=== PATIENT | male | born 1935 | race Caucasian/White ===

== ENCOUNTER 2018-04-24 09:35 | Inpatient (IN) | payer MEDICARE ==
[2018-04-24] MEDS ORDERED: SODIUM CHLORIDE 0.9% 1,000 ML IV STA (10:10)
--- NOTE | 2018-04-24 10:16 | ED ---
General Adult HPI - General Chief complaint: Weakness Stated complaint: WEAKNESS Time Seen by Provider: 04/24/18 09:35 Source: patient, RN notes reviewed Mode of arrival: ambulatory Limitations: no limitations - History of Present Illness Initial comments: This is an 83-year-old male who presents to the emergency department by ambulance with the complaint of generalized weakness. Patient states she woke up at L5-S1 felt weak laid back down but the weakness did not go away. Patient states that a number of occasions he felt as though he might pass out. Patient felt as though he was too weak to get up and walk. Patient denies any focal weakness. Patient denies focal numbness. Patient denies headache patient denies any chest pain or difficulty breathing or shortness of breath per patient denies any palpitations. Patient denies any abdominal pain patient denies nausea vomiting diarrhea. Patient denies any recent injury or trauma. Patient denies any recent sickness. Patient denies any cough. Patient denies any recent surgeries. Patient states right now while lying in bed he feels pretty good. Patient states many years ago he had an issue with fainting multiple times but he is not had that many years. - Related Data Home Medications Medication Instructions Recorded Confirmed Cholecalciferol [Vitamin D3] 1,000 unit PO DAILY 04/24/18 04/24/18 Diltiazem Cd [Cardizem CD] 240 mg PO DAILY 04/24/18 04/24/18 Enalapril [Vasotec] 5 mg PO DAILY 04/24/18 04/24/18 Multivitamins, Thera [Multivitamin 1 tab PO DAILY 04/24/18 04/24/18 (formulary)] Triamterene-Hctz 37.5-25Mg 1 cap PO DAILY 04/24/18 04/24/18 [Dyazide 37.5-25 Capsule] Allergies Allergy/AdvReac Type Severity Reaction Status Date / Time Penicillins Allergy Rash/Hives Verified 04/24/18 12:01 Sulfa (Sulfonamide Allergy Rash/Hives Verified 04/24/18 12:01 Antibiotics) Review of Systems ROS Statement: Those systems with pertinent positive or pertinent negative responses have been documented in the HPI. ROS Other: All systems not noted in ROS Statement are negative. Past Medical History Past Medical History: Hypertension Additional Past Medical History / Comment(s): murmur History of Any Multi-Drug Resistant Organisms: None Reported Past Surgical History: No Surgical Hx Reported Past Psychological History: Depression Smoking Status: Never smoker Past Alcohol Use History: None Reported Past Drug Use History: None Reported General Exam - General Exam Comments Initial Comments: GENERAL: Patient is well-developed and well-nourished. Patient is nontoxic and well- hydrated and is in no acute distress. ENT: Neck is soft and supple. No significant lymphadenopathy is noted. Oropharynx is clear. Moist mucous membranes. Neck has full range of motion without eliciting any pain. EYES: The sclera were anicteric and conjunctiva were pink and moist. Extraocular movements were intact and pupils were equal round and reactive to light. Eyelids were unremarkable. PULMONARY: Unlabored respirations. Good breath sounds bilaterally. No audible rales rhonchi or wheezing was noted. CARDIOVASCULAR: There is a regular rate and rhythm without any murmurs gallops or rubs. ABDOMEN: Soft and nontender with normal bowel sounds. No palpable organomegaly was noted. There is no palpable pulsatile mass. SKIN: Skin is clear with no lesions or rashes and otherwise unremarkable. NEUROLOGIC: Patient is alert and oriented x3. Cranial nerves II through XII are grossly intact. Motor and sensory are also intact. Normal speech, volume and content. Symmetrical smile. MUSCULOSKELETAL: Normal extremities with adequate strength and full range of motion. No lower extremity swelling or edema. No calf tenderness. LYMPHATICS: No significant lymphadenopathy is noted PSYCHIATRIC: Normal psychiatric evaluation. Limitations: no limitations Course Vital Signs 04/24/18 04/24/18 04/24/18 09:37 10:08 13:16 Temperature 97.9 F Pulse Rate 87 94 Respiratory 18 16 18 Rate Blood Pressure 150/100 133/77 O2 Sat by Pulse 98 95 Oximetry Medical Decision Making - Medical Decision Making EKG shows sinus rhythm with occasional PVC at 91 bpm CA interval 192 QRS is 88 QT interval 380 QTC is 467. Patient's EKG shows no ST segment elevation or depression or T wave abnormalities are noted. Chest x-ray showed no acute abnormality. Computed tomography scan of the lungs showed no obvious pulmonary embolism. Patient was started on heparin secondary to the elevated troponin. I spoke with Dr. Vera he agreed to admit the patient admitted the patient wrote admitting orders I consult cardiology I continued heparin and aspirin and Nitropaste on the floor. After I was writing admitting orders patient's heart rate jumped to 170s look like his SVT EKG showed supraventricular tachycardia at 169 bpm QRS 104 QT interval is 278 QTC is 466. I gave the patient adenosine 6 mg and then 12 mg and it converted the patient back into a sinus rhythm. After the adenosine EKG showed a normal sinus rhythm at 80 bpm there was an occasional PVC and PAC CA interval is 188 QRSs 84 QT interval 360 QTC is 445. - Lab Data Result diagrams: 04/24/18 10:00 04/24/18 10:00 Lab Results 04/24/18 04/24/18 04/24/18 Range/Units 10:00 10:00 10:00 WBC 7.1 (3.8-10.6) k/uL RBC 4.80 (4.30-5.90) m/uL Hgb 15.1 (13.0-17.5) gm/dL Hct 45.1 (39.0-53.0) % MCV 93.9 (80.0-100.0) fL MCH 31.4 (25.0-35.0) pg MCHC 33.5 (31.0-37.0) g/dL RDW 13.9 (11.5-15.5) % Plt Count 237 (150-450) k/uL Neutrophils % 81 % Lymphocytes % 11 % Monocytes % 5 % Eosinophils % 1 % Basophils % 0 % Neutrophils # 5.8 (1.3-7.7) k/uL Lymphocytes # 0.8 L (1.0-4.8) k/uL Monocytes # 0.4 (0-1.0) k/uL Eosinophils # 0.1 (0-0.7) k/uL Basophils # 0.0 (0-0.2) k/uL PT 10.2 (9.0-12.0) sec INR 0.9 (<1.2) APTT 24.5 (22.0-30.0) sec D-Dimer 0.68 H (<0.60) mg/L FEU Sodium 137 (137-145) mmol/L Potassium 4.2 (3.5-5.1) mmol/L Chloride 105 (98-107) mmol/L Carbon Dioxide 22 (22-30) mmol/L Anion Gap 10 mmol/L BUN 22 H (9-20) mg/dL Creatinine 0.96 (0.66-1.25) mg/dL Est GFR (CKD-EPI)AfAm 85 (>60 ml/min/1.73 sqM) Est GFR (CKD-EPI)NonAf 74 (>60 ml/min/1.73 sqM) Glucose 103 H (74-99) mg/dL Plasma Lactic Acid Ren (0.7-2.0) mmol/L Calcium 10.0 (8.4-10.2) mg/dL Magnesium 1.7 (1.6-2.3) mg/dL Total Bilirubin 0.8 (0.2-1.3) mg/dL AST 26 (17-59) U/L ALT 36 (21-72) U/L Alkaline Phosphatase 75 (38-126) U/L Troponin I (0.000-0.034) ng/mL Total Protein 7.0 (6.3-8.2) g/dL Albumin 4.1 (3.5-5.0) g/dL Urine Color Urine Appearance (Clear) Urine pH (5.0-8.0) Ur Specific [place] (1.001-1.035) Urine Protein (Negative) Urine Glucose (UA) (Negative) Urine Ketones (Negative) Urine Blood (Negative) Urine Nitrite (Negative) Urine Bilirubin (Negative) Urine Urobilinogen (<2.0) mg/dL Ur Leukocyte Esterase (Negative) 04/24/18 04/24/18 04/24/18 Range/Units 10:00 10:00 11:17 WBC (3.8-10.6) k/uL RBC (4.30-5.90) m/uL Hgb (13.0-17.5) gm/dL Hct (39.0-53.0) % MCV (80.0-100.0) fL MCH (25.0-35.0) pg MCHC (31.0-37.0) g/dL RDW (11.5-15.5) % Plt Count (150-450) k/uL Neutrophils % % Lymphocytes % % Monocytes % % Eosinophils % % Basophils % % Neutrophils # (1.3-7.7) k/uL Lymphocytes # (1.0-4.8) k/uL Monocytes # (0-1.0) k/uL Eosinophils # (0-0.7) k/uL Basophils # (0-0.2) k/uL PT (9.0-12.0) sec INR (<1.2) APTT (22.0-30.0) sec D-Dimer (<0.60) mg/L FEU Sodium (137-145) mmol/L Potassium (3.5-5.1) mmol/L Chloride (98-107) mmol/L Carbon Dioxide (22-30) mmol/L Anion Gap mmol/L BUN (9-20) mg/dL Creatinine (0.66-1.25) mg/dL Est GFR (CKD-EPI)AfAm (>60 ml/min/1.73 sqM) Est GFR (CKD-EPI)NonAf (>60 ml/min/1.73 sqM) Glucose (74-99) mg/dL Plasma Lactic Acid Ren 2.2 H* (0.7-2.0) mmol/L Calcium (8.4-10.2) mg/dL Magnesium (1.6-2.3) mg/dL Total Bilirubin (0.2-1.3) mg/dL AST (17-59) U/L ALT (21-72) U/L Alkaline Phosphatase (38-126) U/L Troponin I 0.122 H* (0.000-0.034) ng/mL Total Protein (6.3-8.2) g/dL Albumin (3.5-5.0) g/dL Urine Color Light Yellow Urine Appearance Clear (Clear) Urine pH 7.5 (5.0-8.0) Ur Specific [place] 1.007 (1.001-1.035) Urine Protein Negative (Negative) Urine Glucose (UA) Negative (Negative) Urine Ketones Negative (Negative) Urine Blood Negative (Negative) Urine Nitrite Negative (Negative) Urine Bilirubin Negative (Negative) Urine Urobilinogen <2.0 (<2.0) mg/dL Ur Leukocyte Esterase Negative (Negative) Critical Care Time Critical Care Time: Yes Total Critical Care Time: 55 Disposition Clinical Impression: Generalized weakness, SVT (supraventricular tachycardia), Non-STEMI (non-ST elevated myocardial infarction) Disposition: ADMITTED IP TO THIS HOSP Referrals: Leanna Mancia DO [Primary Care Provider] - 1-2 days Time of Disposition: 12:58
[2018-04-24 10:35] LABS: Basophils % (A) 0 %; Eosinophils # (A) 0.1 k/uL (0-0.7); Eosinophils % (A) 1 %; HCT 45.1 % (39.0-53.0); HGB 15.1 gm/dL (13.0-17.5); Lymphocytes # (A) 0.8 k/uL (1.0-4.8); Lymphocytes % (A) 11 %; MCH 31.4 pg (25.0-35.0); MCHC 33.5 g/dL (31.0-37.0); MCV 93.9 fL (80.0-100.0); Monocytes # (A) 0.4 k/uL (0-1.0); Monocytes % (A) 5 %; Neutrophils # (A) 5.8 k/uL (1.3-7.7); Neutrophils % (A) 81 %; Platelet Count 237 k/uL (150-450); RDW 13.9 % (11.5-15.5); WBC 7.1 k/uL (3.8-10.6)
[2018-04-24 10:46] LABS: Albumin 4.1 g/dL (3.5-5.0); Magnesium 1.7 mg/dL (1.6-2.3); Potassium 4.2 mmol/L (3.5-5.1); Total Bilirubin 0.8 mg/dL (0.2-1.3)
[2018-04-24 11:09] LABS: INR 0.9 (<1.2); Partial Thromboplastin Time 24.5 sec (22.0-30.0); Prothrombin Time 10.2 sec (9.0-12.0)
[2018-04-24] MEDS ORDERED: HEPARIN SODIUM,PORCINE 5,000 UNIT/ML 1 ML VIAL IV ONE ×2 (11:09→12:53)
[2018-04-24 11:15] LABS: D-Dimer 0.68 mg/L FEU (<0.60)
[2018-04-24] MEDS ORDERED: HEPARIN SOD,PORK IN 0.45% NACL 25,000 UNIT in 0.45% NACL 1 250ML.BAG IV SCH (11:15)
[2018-04-24 11:51] LABS: Appearance,Urine Clear (Clear); Bilirubin,Urine Negative (Negative); Blood,Urine Negative (Negative); Color,Urine Light Yellow; Glucose,Urine (UA) Negative (Negative); Ketones,Urine Negative (Negative); Leukocyte Esterase,Urine Negative (Negative); Nitrite,Urine Negative (Negative); PH, Urine 7.5 (5.0-8.0); Protein,Urine Negative (Negative); Specific Gravity,Urine 1.007 (1.001-1.035); Urobilinogen,Urine <2.0 mg/dL (<2.0)
--- NOTE | 2018-04-24 12:38 | XR ---
EXAMINATION TYPE: XR chest 2V DATE OF EXAM: 04/24/2018 COMPARISON: None HISTORY: 83-year-old male with weakness and dizziness TECHNIQUE: PA and lateral views FINDINGS: Heart normal size. Elongation/ectasia of the thoracic aorta. Mild interstitial prominence. No consoli dation or pleural effusion. IMPRESSION: Mild elongated/ectatic thoracic aorta. Chronic appearing changes. No definite acute process.
--- NOTE | 2018-04-24 12:44 | CT ---
EXAMINATION TYPE: CT chest angio for PE DATE OF EXAM: 04/24/2018 COMPARISON: Radiograph same day HISTORY: 83-year-old male shortness of breath, pain, elevated d dimer TECHNIQUE: Contiguous axial scanning of the chest performed with IV Contrast, patient injected with 1 00 mL of Isovue 370. Coronal/sagittal MIP reconstructions performed. CT DLP: 364.1 mGycm Automated exposure control for dose reduction was used. FINDINGS: Heart normal size with trace anterior basilar pericardial fluid. Coronary vessel calcifications are p resent. Mild aortic valvular calcifications. Mild atherosclerotic arch calcifications. Upper descending thoracic aorta is borderline aneurysmal 3. 2 cm. Scattered prominent but nonenlarged mediastinal lymph nodes measuring 1.2 cm subcarinal and 8 mm righ t paratracheal. Satisfactory opacification of the pulmonary to systemic without evidence for pulmonary embolus. Some partially calcified right hilar lymph nodes and a calcified granuloma in the right midlung. Mild diffuse bronchial wall thickening. No consolidation or pleural effusion. Minimal scattered emphy sematous change. Visualized upper abdomen showed possible cystic lesion of the pancreatic body measuring 1.2 cm. Possi ble cystic lesion pancreatic tail measuring 1.1 cm. Dedicated nonemergent follow-up pancreas protocol MRI can further evaluate. Bones: Endplate spondylosis mid to lower thoracic spine. IMPRESSION: 1. MILD DIFFUSE BRONCHIAL WALL THICKENING SUGGESTS BRONCHITIS OR ASTHMA. MINIMAL EMPHYSEMATOUS CHANGE S PRESENT. 2. Prior granulomatous disease. Numerous scattered borderline and nonenlarged mediastinal and hilar l ymph nodes likely reactive/post inflammatory. 3. No evidence for pulmonary embolus. 4. Possible cystic lesions of the pancreas measuring up to 1.2 cm. Nonemergent follow-up pancreas pro tocol MRI recommended to further evaluate.
[2018-04-24] MEDS ORDERED: ADENOSINE 3 MG/ML 2 ML VIAL IVP STA ×2 (13:03→13:24)
[2018-04-24] MEDS ORDERED: NITROGLYCERIN SL TABS 0.4 MG TAB SUBLINGUAL PRN (13:12)
[2018-04-24] MEDS: HEPARIN SOD,PORK IN 0.45% NACL 25,000 UNIT in 0.45% NACL 1 250ML.BAG IV SCH (13:13)
--- NOTE | 2018-04-24 15:40 | P.HPIM ---
History of Present Illness Chief Complaint: Weakness This is a very pleasant 81-year-old gentleman with a past medical history significant for hypertension, some kind of arrhythmia was patient is not sure as the patient is on Cardizem CD, comes in with weakness. Patient says that he would have weakness on and off for a while now and he was told by his doctor that if he has weakness to take some rest or cough for the weakness to go away. He said that he was told that he has flutter. He is not sure if was officially diagnosed with A. fib or any arrhythmias. This morning he started having weakness which is not going away even after sitting and taking rest so he came into the ER for further evaluation and management. Patient otherwise does not complain of any chest pain racing heart, no cough no shortness of breath, no abdominal pain, nausea and vomiting, or diarrhea constipation, no tingling numbness of his extremities, and additional rest. He said that he was also feeling dizzy little bit this morning. Next ER course-temperature was 97.9 pulse 80 respiration 18 blood pressure 139/77 7097% on room air. Labwork showed WBC 7.1 hemoglobin 15.1 platelets 237 d- dimer 0.68 sodium 137 potassium 4.2 B1 22 creatinine 0.96 lactic acid 2.2 troponin 0.12 . While in the ER patient heart rate jumped up to 160s and he was in SVT. He was given adenosine after which the he converted to normal sinus rhythm. I was told that his underlying rhythm was still sinus. Patient was started on heparin drip and admitted to the hospitalist service for further evaluation and management. Review of Systems All systems: negative Past Medical History Past Medical History: Hypertension Additional Past Medical History / Comment(s): murmur History of Any Multi-Drug Resistant Organisms: None Reported Past Surgical History: No Surgical Hx Reported Past Psychological History: Depression Smoking Status: Never smoker Past Alcohol Use History: None Reported Past Drug Use History: None Reported Medications and Allergies Home Medications Medication Instructions Recorded Confirmed Type Cholecalciferol [Vitamin D3] 1,000 unit PO DAILY 04/24/18 04/24/18 History Diltiazem Cd [Cardizem CD] 240 mg PO DAILY 04/24/18 04/24/18 History Enalapril [Vasotec] 5 mg PO DAILY 04/24/18 04/24/18 History Multivitamins, Thera [Multivitamin 1 tab PO DAILY 04/24/18 04/24/18 History (formulary)] Triamterene-Hctz 37.5-25Mg 1 cap PO DAILY 04/24/18 04/24/18 History [Dyazide 37.5-25 Capsule] Allergies Allergy/AdvReac Type Severity Reaction Status Date / Time Penicillins Allergy Rash/Hives Verified 04/24/18 12:01 Sulfa (Sulfonamide Allergy Rash/Hives Verified 04/24/18 12:01 Antibiotics) Physical Exam Vitals: Vital Signs Temp Pulse Resp BP Pulse Ox 04/24/18 13:53 73 18 139/77 97 04/24/18 13:16 94 18 133/77 95 04/24/18 10:08 16 04/24/18 09:37 97.9 F 87 18 150/100 98 Intake and Output 04/24/18 04/24/18 04/24/18 06:59 14:59 22:59 Other: Weight 68.765 kg On exam, alert and oriented x3. HEENT: Conjunctivae normal. eyes normal. NECK: No JVD. No thyroid enlargement. No LNs CARDIOVASCULAR: S1, S2 RESPIRATION: Breath sounds diminished in the bases. No rhonchi or crackles. No bronchial breathing. ABDOMEN: Soft, nontender . No guarding. no masses palpable. No ascites, No hepatosplenomegaly.Bowel sounds heard. LEGS: No edema. no swelling NERVOUS SYSTEM: Cranial N 2-12 grossly normal. Moves all 4 limbs. No focal deficits. No sensory deficit. No signs of cerebellar dysfucntion. Skin: no ulcer no rash Joints: No active swelling. No inflammation. Lymphatic system. No LN neck axilla or groin. Results CBC & Chem 7: 04/24/18 10:00 04/24/18 10:00 Labs: Abnormal Lab Results - Last 24 Hours (Table) 04/24/18 04/24/18 04/24/18 Range/Units 10:00 10:00 10:00 Lymphocytes # 0.8 L (1.0-4.8) k/uL D-Dimer 0.68 H (<0.60) mg/L FEU BUN 22 H (9-20) mg/dL Glucose 103 H (74-99) mg/dL Plasma Lactic Acid Ren (0.7-2.0) mmol/L Troponin I (0.000-0.034) ng/mL 04/24/18 04/24/18 Range/Units 10:00 10:00 Lymphocytes # (1.0-4.8) k/uL D-Dimer (<0.60) mg/L FEU BUN (9-20) mg/dL Glucose (74-99) mg/dL Plasma Lactic Acid Ren 2.2 H* (0.7-2.0) mmol/L Troponin I 0.122 H* (0.000-0.034) ng/mL Assessment and Plan Assessment: - Weakness and dizziness probably due to episode of SVT - Rule out non-STEMI - Hypertension - Mildly elevated lactic acid Plan - We'll admit the patient to [facility] with telemetry - The patient is on heparin drip will continue that - Cardiology is consulted - We'll monitor troponin levels - We'll resume the patient's home medications - We'll start him on gentle hydration - DVT and GI prophylaxis - We will order for lab work in the morning - Expected length of stay more than 2 midnight - Patient is full code Time with Patient: Greater than 30
[2018-04-24 16:21] VITALS: BMI 23.7
[2018-04-24] MEDS: SODIUM CHLORIDE 0.9% 1,000 ML IV SCH (17:11)
[2018-04-24] MEDS: NITROGLYCERIN OINT 1 INCH/GM PACKET TOPICAL SCH (17:15)
[2018-04-25] MEDS: NITROGLYCERIN OINT 1 INCH/GM PACKET TOPICAL SCH ×2 (00:23→06:02)
[2018-04-25 04:25] LABS: HCT 37.5 % (39.0-53.0); HGB 12.7 gm/dL (13.0-17.5); MCH 32.7 pg (25.0-35.0); MCHC 33.9 g/dL (31.0-37.0); MCV 96.3 fL (80.0-100.0); Mean Platelet Volume 6.3; Platelet Count 209 k/uL (150-450); RBC 3.89 m/uL (4.30-5.90); WBC 5.2 k/uL (3.8-10.6)
[2018-04-25 04:40] LABS: Calcium 9.1 mg/dL (8.4-10.2); Potassium 4.1 mmol/L (3.5-5.1)
[2018-04-25] MEDS: SODIUM CHLORIDE 0.9% 1,000 ML IV SCH ×2 (06:48→17:53)
[2018-04-25] MEDS: LISINOPRIL 10 MG TAB PO SCH (08:53)
[2018-04-25] MEDS: DILTIAZEM CD 240 MG CAP.ER.24H PO SCH (08:53)
[2018-04-25] MEDS: TRIAMTERENE-HCTZ 37.5-25MG 1 EACH CAP PO SCH (08:53)
[2018-04-25] MEDS ORDERED: ASPIRIN 325 MG TAB PO SCH (09:00)
--- NOTE | 2018-04-25 09:20 | P.CRDCN ---
History of Present Illness Consult date: 04/25/18 Requesting physician: Adeel Love Reason for Consult (text): SVT Chief complaint: Dizziness History of present illness: This is a pleasant 83-year-old gentleman with history of hypertension, hyperlipidemia, prior arrhythmia, who presented to the hospital with symptoms of dizziness and near syncope. According to the patient, 2-1/2 years ago he had similar symptoms, his had recently at that time. He went to [facility], had a rapid heart rhythm at that time. 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 He did see Dr. Sanders, who did stress testing and echo, patient was advised that if he felt the symptoms again that he needed to take a deep breath and cough. He did have a few subsequent episodes since that time that resolved with taking a deep breath and coughing. On of this past week he had similar symptoms, attempted to do this and the symptoms resolved. Yesterday morning he again develop symptoms of dizziness and near syncope, attempted to take a deep breath and cough however the symptoms persisted, he again tried the same thing with no results. For this reason he came to the emergency room at [facility] for further evaluation and treatment. His EKG performed on arrival here showed a supraventricular tachycardia, patient was given adenosine 6 mg and then 12 mg and subsequently converted to normal sinus rhythm. He remains in a normal sinus rhythm this morning. Chest x-ray shows mild elongated thoracic aorta, chronic appearing changes with no definite acute process noted. CTA of the chest was also performed which revealed mild diffuse bronchial wall thickening suggestive of bronchitis or asthma. Prior granulomatous disease with numerous scattered borderline and nonenlarged mediastinal and hilar lymph nodes. No evidence of PE. Possible cystic lesions of the pancreas measuring up to 1.2 cm. Blood pressure on arrival here 150/100, 98% on room air. Blood pressure this morning 105/60 with a heart rate in the 70s, 99% on room air. White blood cell count 7.1 on admission, hemoglobin 15.1 on admission, white blood cell count this morning 5.2 with a hemoglobin of 12.7. D-dimer 0.6. Sodium 138, potassium 4.1, BUN 27 and creatinine 0.9. Troponin 0.12, 0.64, 0.80. At the time of my examination this morning, patient feels well, he denies any dizziness or lightheadedness, no palpitations. Past Medical History Past Medical History: Hypertension, Supraventricular Tachycardia (SVT) Additional Past Medical History / Comment(s): murmur History of Any Multi-Drug Resistant Organisms: None Reported Past Surgical History: No Surgical Hx Reported Additional Past Surgical History / Comment(s): growth in bladder removed 2007 Past Anesthesia/Blood Transfusion Reactions: No Reported Reaction Smoking Status: Never smoker - Past Family History Father Family Medical History: Myocardial Infarction ([place]) Medications and Allergies Home Medications Medication Instructions Recorded Confirmed Type Cholecalciferol [Vitamin D3] 1,000 unit PO DAILY 04/24/18 04/24/18 History Diltiazem Cd [Cardizem CD] 240 mg PO DAILY 04/24/18 04/24/18 History Enalapril [Vasotec] 5 mg PO DAILY 04/24/18 04/24/18 History Multivitamins, Thera [Multivitamin 1 tab PO DAILY 04/24/18 04/24/18 History (formulary)] Triamterene-Hctz 37.5-25Mg 1 cap PO DAILY 04/24/18 04/24/18 History [Dyazide 37.5-25 Capsule] Allergies Allergy/AdvReac Type Severity Reaction Status Date / Time Penicillins Allergy Rash/Hives Verified 04/24/18 12:01 Sulfa (Sulfonamide Allergy Rash/Hives Verified 04/24/18 12:01 Antibiotics) Physical Exam Vitals: Vital Signs Temp Pulse Pulse Resp BP BP Pulse Ox 04/25/18 08:00 98.1 F 70 18 183/85 97 04/25/18 04:20 98.1 F 71 15 105/64 99 04/25/18 00:06 66 15 102/59 98 04/24/18 20:24 74 16 128/81 97 04/24/18 16:32 98.1 F 87 20 129/79 99 04/24/18 15:53 97.9 F 73 18 139/77 97 04/24/18 13:53 73 18 139/77 97 04/24/18 13:16 94 18 133/77 95 04/24/18 10:08 16 04/24/18 09:37 97.9 F 87 18 150/100 98 Intake and Output 04/24/18 04/25/18 04/25/18 22:59 06:59 14:59 Intake Total 564.763 687.979 0 Output Total 100 Balance 464.763 687.979 0 Intake: Amount of Fluid Infused ( 500 ml) Intake, IV Titration 64.763 687.979 Amount Heparin Sod,Pork in 0.45% 64.763 87.979 NaCl 25,000 unit In 0.45 % NaCl 1 250ml.bag @ 12 UNITS/KG/HR 8.25 mls/hr IV .Q24H [facility] Rx#: [id number] Sodium Chloride 0.9% 1, 600 000 ml @ 75 mls/hr IV . [id number] [facility] Rx#:[id number] Oral 0 Output: Urine 100 Other: Voiding Method Toilet Toilet Toilet # Voids 2 Weight 73.8 kg PHYSICAL EXAMINATION: GENERAL: 83-year-old gentleman in no acute distress at the time of my examination HEENT: Head is atraumatic, normocephalic. Pupils equal, round. Sclera ani cteric. Conjunctiva are clear. Mucous membranes of the mouth are moist. Neck is supple. There is no elevated jugular venous pressure. No carotid bruit is heard. HEART EXAMINATION: Heart S1, S2 normal. No murmur or gallop heard. CHEST EXAMINATION: Lungs are clear to auscultation and precussion. No chest wall tenderness is noted on palpation or with deep breathing. ABDOMEN: Soft, nontender. Bowel sounds are heard. No organomegaly noted. EXTREMITIES: 2+ peripheral pulses with no evidence of peripheral edema and no calf tenderness noted. NEUROLOGIC patient is awake, alert and oriented 3 . . Results 04/25/18 04:09 04/25/18 04:09 Cardiac Enzymes 04/24/18 04/24/18 04/24/18 Range/Units 10:00 10:00 15:33 AST 26 (17-59) U/L Troponin I 0.122 H* 0.649 H* (0.000-0.034) ng/mL 04/24/18 Range/Units 21:50 AST (17-59) U/L Troponin I 0.809 H* (0.000-0.034) ng/mL Coagulation 04/24/18 04/24/18 04/25/18 Range/Units 10:00 20:10 04:09 PT 10.2 (9.0-12.0) sec APTT 24.5 30.6 H 36.3 H (22.0-30.0) sec Lipids 04/25/18 Range/Units 04:09 Triglycerides 106 (<150) mg/dL Cholesterol 126 (<200) mg/dL HDL Cholesterol 38 L (40-60) mg/dL CBC 04/24/18 04/25/18 Range/Units 10:00 04:09 WBC 7.1 5.2 (3.8-10.6) k/uL RBC 4.80 3.89 L (4.30-5.90) m/uL Hgb 15.1 12.7 L (13.0-17.5) gm/dL Hct 45.1 37.5 L (39.0-53.0) % Plt Count 237 209 (150-450) k/uL Comprehensive Metabolic Panel 04/24/18 04/25/18 Range/Units 10:00 04:09 Sodium 137 138 (137-145) mmol/L Potassium 4.2 4.1 (3.5-5.1) mmol/L Chloride 105 109 H (98-107) mmol/L Carbon Dioxide 22 24 (22-30) mmol/L BUN 22 H 27 H (9-20) mg/dL Creatinine 0.96 0.99 (0.66-1.25) mg/dL Glucose 103 H 98 (74-99) mg/dL Calcium 10.0 9.1 (8.4-10.2) mg/dL AST 26 (17-59) U/L ALT 36 (21-72) U/L Alkaline Phosphatase 75 (38-126) U/L Total Protein 7.0 (6.3-8.2) g/dL Albumin 4.1 (3.5-5.0) g/dL Current Medications Generic Name Dose Route Start Last Admin Trade Name Freq PRN Reason Stop Dose Admin Aspirin 81 mg 04/25/18 09:00 Aspirin PO DAILY [facility] Diltiazem HCl 240 mg 04/25/18 09:00 04/25/18 08:53 Cardizem Cd PO 240 mg DAILY [facility]ARAT Administration Heparin Sodium/Sodium Chloride 250 mls @ 8.25 mls/hr 04/24/18 13:00 04/25/18 05:36 25,000 unit/ Sodium Chloride IV 18 units/kg/hr .Q24H [facility] 12.37 mls/hr Titration Protocol 12 UNITS/KG/HR Sodium Chloride 1,000 mls @ 75 mls/hr 04/24/18 15:45 04/25/18 06:48 Saline 0.9% IV 75 mls/hr .[id number] [facility]AT Administration Lisinopril 10 mg 04/25/18 09:00 04/25/18 08:53 Zestril PO 10 mg DAILY BHARAT Administration Nitroglycerin 1 inch 04/24/18 18:00 04/25/18 06:02 Nitro-Bid Oint TOPICAL Not Given Q6HR [facility] Nitroglycerin 0.4 mg 04/24/18 13:12 Nitrostat SUBLINGUAL Q5M PRN Chest Pain Triamterene/HCTZ 1 each 04/25/18 09:00 04/25/18 08:53 Dyazide PO 1 each DAILY [facility]ARAT Administration Intake and Output 04/24/18 04/25/18 04/25/18 22:59 06:59 14:59 Intake Total 564.763 687.979 0 Output Total 100 Balance 464.763 687.979 0 Intake: Amount of Fluid Infused ( 500 ml) Intake, IV Titration 64.763 687.979 Amount Heparin Sod,Pork in 0.45% 64.763 87.979 NaCl 25,000 unit In 0.45 % NaCl 1 250ml.bag @ 12 UNITS/KG/HR 8.25 mls/hr IV .Q24H [facility] Rx#: [id number] Sodium Chloride 0.9% 1, 600 000 ml @ 75 mls/hr IV . [id number] [facility] Rx#:[id number] Oral 0 Output: Urine 100 Other: Voiding Method Toilet Toilet Toilet # Voids 2 Weight 73.8 kg 04/25/18 04:09 04/25/18 04:09 EKG Interpretations (text) EKG on admission here showed a supraventricular tachycardia, subsequent EKG shows a normal sinus rhythm. Assessment and Plan Plan: Assessment and plan #1 symptoms of dizziness and near syncope with evidence is supraventricular tachycardia, 2 doses of adenosine given patient is currently in normal sinus rhythm. #2 patient has history of arrhythmia, exact details unavailable #3 hypertension #4 hyperlipidemia #5 abnormality in troponin, likely secondary to supraventricular tachycardia Plan We will obtain an echocardiogram with Doppler study. We will obtain records of patient's prior episode of arrhythmia 2-1/2 years ago for [facility]. We will also obtain records from Dr. Melara office on prior testing done there. Obtain TSH level. Decrease aspirin to 81 mg daily, continue Cardizem. Disco ntinue Nitropaste. Decrease lisinopril to 5 mg daily. It has been explained to the patient that he may be a candidate for SVT ablation. Further recommendations to follow. DNP note has been reviewed, I agree with a documented findings and plan of care. Patient was seen and examined.
--- NOTE | 2018-04-25 12:46 | P.PN ---
Subjective Patient says that he's doing better today He has no more episode of weakness and fluttering No chest pain or racing heart, no cough no shortness of breath. He says that he was having abdominal discomfort yesterday but he had a bowel movement and he has no more abdominal discomfort. Objective - Vital Signs Vital signs: Vital Signs Temp 98.1 F 04/25/18 08:00 Pulse 70 04/25/18 08:00 Resp 18 04/25/18 08:00 BP 183/85 04/25/18 08:00 Pulse Ox 97 04/25/18 08:00 Intake & Output 04/24/18 04/25/18 04/25/18 18:59 06:59 18:59 Intake Total 500 752.742 0 Output Total 100 Balance 400 752.742 0 Weight 68.765 kg 73.8 kg Intake: Amount of Fluid Infused ( 500 ml) Intake, IV Titration 752.742 Amount Heparin Sod,Pork in 0.45% 152.742 NaCl 25,000 unit In 0.45 % NaCl 1 250ml.bag @ 12 UNITS/KG/HR 8.25 mls/hr IV .Q24H [facility] Rx#: [id number] Sodium Chloride 0.9% 1, 600 000 ml @ 75 mls/hr IV . [id number] [facility] Rx#:[id number] Oral 0 Output: Urine 100 Other: Voiding Method Toilet Toilet # Voids 2 - Exam On exam, alert and oriented x3. HEENT: Conjunctivae normal. eyes normal. NECK: No JVD. No thyroid enlargement. No LNs CARDIOVASCULAR: S1-S2 positive RESPIRATION: Breath sounds diminished in the bases. No rhonchi or crackles. No bronchial breathing. ABDOMEN: Soft, nontender . No guarding. no masses palpable. No ascites, No hepatosplenomegaly.Bowel sounds heard. LEGS: No edema. no swelling NERVOUS SYSTEM: Cranial N 2-12 grossly normal. Moves all 4 limbs. No focal deficits. No sensory deficit. No signs of cerebellar dysfucntion. Skin: no ulcer no rash - Labs CBC & Chem 7: 04/25/18 04:09 04/25/18 04:09 Labs: Abnormal Lab Results - Last 24 Hours (Table) 04/24/18 04/24/18 04/24/18 Range/Units 15:33 20:10 21:50 RBC (4.30-5.90) m/uL Hgb (13.0-17.5) gm/dL Hct (39.0-53.0) % APTT 30.6 H (22.0-30.0) sec Chloride (98-107) mmol/L BUN (9-20) mg/dL Troponin I 0.649 H* 0.809 H* (0.000-0.034) ng/mL HDL Cholesterol (40-60) mg/dL 04/25/18 04/25/18 04/25/18 Range/Units 04:09 04:09 04:09 RBC 3.89 L (4.30-5.90) m/uL Hgb 12.7 L (13.0-17.5) gm/dL Hct 37.5 L (39.0-53.0) % APTT 36.3 H (22.0-30.0) sec Chloride 109 H (98-107) mmol/L BUN 27 H (9-20) mg/dL Troponin I (0.000-0.034) ng/mL HDL Cholesterol 38 L (40-60) mg/dL Assessment and Plan Assessment: - Weakness and dizziness probably due to episode of SVT - Rule out non-STEMI - Hypertension - Mildly elevated lactic acid Plan - Patient had no episodes of SVT. - Continue medications for now - Cardiology on board, echo obtained. Try to get records from the other hospital - Patient should might be a potential candidate for SVT ablation as per cardio. We'll wait for the further recommendations from them - We'll follow the patient Time with Patient: Less than 30
[2018-04-25] MEDS: ASPIRIN 81 MG PO SCH (13:52)
[2018-04-25] MEDS: HEPARIN SOD,PORK IN 0.45% NACL 25,000 UNIT in 0.45% NACL 1 250ML.BAG IV SCH (13:52)
[2018-04-25] MEDS ORDERED: HEPARIN SODIUM,PORCINE 5,000 UNIT/ML 1 ML VIAL IV STA ×2 (13:54)
[2018-04-25] MEDS: METOPROLOL TARTRATE 25 MG TAB PO SCH (20:25)
[2018-04-26 06:42] LABS: Calcium 8.7 mg/dL (8.4-10.2); Potassium 3.8 mmol/L (3.5-5.1)
[2018-04-26] MEDS: LISINOPRIL 10 MG TAB PO SCH (09:20)
[2018-04-26] MEDS: ASPIRIN 81 MG PO SCH (09:20)
[2018-04-26] MEDS: DILTIAZEM CD 240 MG CAP.ER.24H PO SCH (09:20)
[2018-04-26] MEDS: TRIAMTERENE-HCTZ 37.5-25MG 1 EACH CAP PO SCH (09:20)
[2018-04-26] MEDS: METOPROLOL TARTRATE 25 MG TAB PO SCH ×2 (09:20→21:36)
--- NOTE | 2018-04-26 13:36 | P.DS ---
Providers Date of admission: 04/24/18 13:12 Expected date of discharge: 04/26/18 Attending physician: Adeel Love MD Consults: 04/24/18 13:12 Consult Physician Urgent Consulting Provider: [facility] Consult Reason/Comments: N STEMI, SVT Do you want consulting provider notified?: Yes 04/26/18 12:25 Consult Physician Routine Consulting Provider: Adriel Wells Consult Reason/Comments: SVT Do you want consulting provider notified?: Yes 04/26/18 12:44 Consult Physician Urgent Consulting Provider: Adriel Wells Consult Reason/Comments: svt Do you want consulting provider notified?: Yes Primary care physician: [facility] Course: Discharge diagnosis - Weakness - A. fib with RVR - AK I - History of hypertension - History of hyperlipidemia - History of diabetes Is a very pleasant 89-year-old female with a past medical history significant for hypertension, hyperlipidemia, diabetes comes in for weakness. She said that she was living at home sitting in the chair she wanted to get up but was not able to. She called the ambulance who brought her here for further urology management. The patient otherwise did not complain of any chest pain racing heart or any other complaint. Hospital course. EKG in the ER showed A. fib with controlled rate. Etiology was consulted (Klaus was 2.5 mrem twice a day and also put her on Medrol 25 mg twice a day. Along the hospital stay the patient did not have good oral intake and creatinine bumped up to 1.23. Her Lasix were held and was started on gentle fluid hydration her creatinine is improving slowly. Her echocardiogram was done which showed normal ejection fraction. On 04/26/2018 On exam, alert and oriented x3. HEENT: Conjunctivae normal. eyes normal. NECK: No JVD. No thyroid enlargement. No LNs CARDIOVASCULAR: S1, S2 heard RESPIRATION: Breath sounds diminished in the bases. No rhonchi or crackles. No bronchial breathing. ABDOMEN: Soft, nontender . No guarding. no masses palpable. No ascites, No hepatosplenomegaly.Bowel sounds heard. LEGS: Trace pedal edema NERVOUS SYSTEM: Cranial N 2-12 grossly normal. Moves all 4 limbs. No focal deficits. No sensory deficit. No signs of cerebellar dysfucntion. Skin: no ulcer no rash Plan - Patient will go to the rehab - Lasix on hold. The physician at the rehab to monitor the basic metabolic profile and the fluid status and resume Lasix when appropriate - Continue Medrol 25 mg twice a day to hold if heart rate less than 60 - Continue rest of the medications Patient Condition at Discharge: Fair Plan - Discharge Summary New Discharge Prescriptions: No Action Triamterene-Hctz 37.5-25Mg [Dyazide 37.5-25 Capsule] 1 cap PO DAILY Multivitamins, Thera [Multivitamin (formulary)] 1 tab PO DAILY Enalapril [Vasotec] 5 mg PO DAILY Diltiazem Cd [Cardizem CD] 240 mg PO DAILY Cholecalciferol [Vitamin D3] 1,000 unit PO DAILY Discharge Medication List Cholecalciferol [Vitamin D3] 1,000 unit PO DAILY 04/24/18 [History] Diltiazem Cd [Cardizem CD] 240 mg PO DAILY 04/24/18 [History] Enalapril [Vasotec] 5 mg PO DAILY 04/24/18 [History] Multivitamins, Thera [Multivitamin (formulary)] 1 tab PO DAILY 04/24/18 [History ] Triamterene-Hctz 37.5-25Mg [Dyazide 37.5-25 Capsule] 1 cap PO DAILY 04/24/18 [ History] Follow up Appointment(s)/Referral(s): Leanna Mancia DO [Primary Care Provider] - 05/02/18 2:00 pm (Wednesday) Patient Instructions/Handouts: Supraventricular Tachycardia (DC)
--- NOTE | 2018-04-26 14:58 | P.PN ---
Subjective Progress Note Date: 04/26/18 This is a pleasant 83-year-old gentleman with history of hypertension, hyperlipidemia, prior arrhythmia, who presented to the hospital with symptoms of dizziness and near syncope. According to the patient, 2-1/2 years ago he had similar symptoms, his had recently at that time. He went to [facility], had a rapid heart rhythm at that time. 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 He did see Dr. Sanders, who did stress testing and echo, patient was advised that if he felt the symptoms again that he needed to take a deep breath and cough. He did have a few subsequent episodes since that time that resolved with taking a deep breath and coughing. On of this past week he had similar symptoms, attempted to do this and the symptoms resolved. Yesterday morning he again develop symptoms of dizziness and near syncope, attempted to take a deep breath and cough however the symptoms persisted, he again tried the same thing with no results. For this reason he came to the emergency room at [facility] for further evaluation and treatment. His EKG performed on arrival here showed a supraventricular tachycardia, patient was given adenosine 6 mg and then 12 mg and subsequently converted to normal sinus rhythm. He remains in a normal sinus rhythm this morning. Chest x-ray shows mild elongated thoracic aorta, chronic appearing changes with no definite acute process noted. CTA of the chest was also performed which revealed mild diffuse bronchial wall thickening suggestive of bronchitis or asthma. Prior granulomatous disease with numerous scattered borderline and nonenlarged mediastinal and hilar lymph nodes. No evidence of PE. Possible cystic lesions of the pancreas measuring up to 1.2 cm. Blood pressure on arrival here 150/100, 98% on room air. Blood pressure this morning 105/60 with a heart rate in the 70s, 99% on room air. White blood cell count 7.1 on admission, hemoglobin 15.1 on admission, white blood cell count this morning 5.2 with a hemoglobin of 12.7. D-dimer 0.6. Sodium 138, potassium 4.1, BUN 27 and creatinine 0.9. Troponin 0.12, 0.64, 0.80. At the time of my examination this morning, patient feels wel l, he denies any dizziness or lightheadedness, no palpitations. 04/26/2018 Patient seen and examined this morning, no further episodes of SVT noted through the night. Dr. Fontanez did have a lengthy discussion with the patient and family regarding SVT ablation. We will consult Dr. Wells. Echocardiogram with Doppler study remains pending. TSH level 3.9. Objective - Vital Signs Vital signs: Vital Signs Temp 98.1 F 04/26/18 12:00 Pulse 74 04/26/18 12:00 Resp 18 04/26/18 12:00 BP 159/76 04/26/18 12:00 Pulse Ox 97 04/26/18 12:00 Intake & Output 04/25/18 04/26/18 04/26/18 18:59 06:59 18:59 Intake Total 577.258 240 Output Total 500 465 Balance 577.258 -500 -225 Weight 75.3 kg Intake: Intake, IV Titration 97.258 Amount Heparin Sod,Pork in 0.45% 97.258 NaCl 25,000 unit In 0.45 % NaCl 1 250ml.bag @ 12 UNITS/KG/HR 8.25 mls/hr IV .Q24H [facility] Rx#: [id number] Oral 480 240 Output: Urine 500 Straight 500 Post Void Residual 465 Other: Voiding Method Toilet Toilet Toilet # Voids 3 1 - Exam PHYSICAL EXAMINATION: GENERAL: 83-year-old gentleman in no acute distress at the time of my examination HEENT: Head is atraumatic, normocephalic. Pupils equal, round. Sclera anicteric. Conjunctiva are clear. Mucous membranes of the mouth are moist. Neck is supple. There is no elevated jugular venous pressure. No carotid bruit is heard. HEART EXAMINATION: Heart S1, S2 normal. No murmur or gallop heard. CHEST EXAMINATION: Lungs are clear to auscultation and precussion. No chest wall tenderness is noted on palpation or with deep breathing. ABDOMEN: Soft, nontender. Bowel sounds are heard. No organomegaly noted. EXTREMITIES: 2+ peripheral pulses with no evidence of peripheral edema and no calf tenderness noted. NEUROLOGIC patient is awake, alert and oriented 3 . . - Labs CBC & Chem 7: 04/25/18 04:09 04/26/18 05:56 Labs: Abnormal Lab Results - Last 24 Hours (Table) 04/25/18 04/26/18 04/26/18 Range/Units 19:23 05:56 05:56 APTT 67.9 H 70.2 H (22.0-30.0) sec Chloride 109 H (98-107) mmol/L Assessment and Plan Plan: Assessment and plan #1 symptoms of dizziness and near syncope with evidence is supraventricular tachycardia, 2 doses of adenosine given patient is currently in normal sinus rhythm. #2 patient has history of arrhythmia, exact details unavailable #3 hypertension #4 hyperlipidemia #5 abnormality in troponin, likely secondary to supraventricular tachycardia Plan We will review the patient's echocardiogram with Doppler study. We will also consult with Dr. Wells regarding SVT ablation. DNP note has been reviewed, I agree with a documented findings and plan of care. Patient was seen and examined.
--- NOTE | 2018-04-26 15:25 | P.PN ---
Subjective Patient says that he's doing better today He has no more episode of weakness and fluttering No chest pain or racing heart, no cough no shortness of breath. He says that he was having abdominal discomfort yesterday but he had a bowel movement and he has no more abdominal discomfort. 04/26/2018 Patient says that he's feeling fine No chest pain or racing heart, no cough no shortness of breath No episodes of weakness or dizziness Objective - Vital Signs Vital signs: Vital Signs Temp 98.1 F 04/26/18 12:00 Pulse 74 04/26/18 12:00 Resp 18 04/26/18 12:00 BP 159/76 04/26/18 12:00 Pulse Ox 97 04/26/18 12:00 Intake & Output 04/25/18 04/26/18 04/26/18 18:59 06:59 18:59 Intake Total 577.258 480 Output Total 500 465 Balance 577.258 -500 15 Weight 75.3 kg Intake: Intake, IV Titration 97.258 Amount Heparin Sod,Pork in 0.45% 97.258 NaCl 25,000 unit In 0.45 % NaCl 1 250ml.bag @ 12 UNITS/KG/HR 8.25 mls/hr IV .Q24H [facility] Rx#: [id number] Oral 480 480 Output: Urine 500 Straight 500 Post Void Residual 465 Other: Voiding Method Toilet Toilet Toilet # Voids 3 1 - Exam On exam, alert and oriented x3. HEENT: Conjunctivae normal. eyes normal. NECK: No JVD. No thyroid enlargement. No LNs CARDIOVASCULAR: S1-S2 positive RESPIRATION: Breath sounds diminished in the bases. No rhonchi or crackles. No bronchial breathing. ABDOMEN: Soft, nontender . No guarding. no masses palpable. No ascites, No hepatosplenomegaly.Bowel sounds heard. LEGS: No edema. no swelling NERVOUS SYSTEM: Cranial N 2-12 grossly normal. Moves all 4 limbs. No focal deficits. No sensory deficit. No signs of cerebellar dysfucntion. Skin: no ulcer no rash - Labs CBC & Chem 7: 04/25/18 04:09 04/26/18 05:56 Labs: Abnormal Lab Results - Last 24 Hours (Table) 04/25/18 04/26/18 04/26/18 Range/Units 19:23 05:56 05:56 APTT 67.9 H 70.2 H (22.0-30.0) sec Chloride 109 H (98-107) mmol/L Assessment and Plan Assessment: - Weakness and dizziness probably due to episode of SVT - Rule out non-STEMI - Hypertension - Mildly elevated lactic acid Plan - Cardiology plans for SVT ablation - Continue rest of the care to that time - Continue rest of the medications - We'll follow the patient Time with Patient: Less than 30
[2018-04-26] MEDS ORDERED: DILTIAZEM CD 180 MG CAP.ER.24H PO STA (17:11)
--- NOTE | 2018-04-26 17:19 | P.CRDCN ---
History of Present Illness History of present illness: This is Dr. Wells dictating a consult on this patient The patient was interviewed and examined by me IMPRESSION / ASSESSMENT: Patient presented with SVT despite treatment with Cardizem Responded to IV adenosine 2 He was presyncopal and week on account of this Recurrent presyncope in the past, recurrent SVT Multiple episodes last year and at least 4-5 episodes this year while on diltiazem Failing Valsalva Borderline troponins Hypertension Dyslipidemia PLAN: Consider EP study and radiofrequency ablation as a curative treatment for SVT especially since medical treatment has failed and patient is quite symptomatic with these episodes Detailed discussion with the patient Long-lasting Success rates greater than 95-97% Failure rate of 1-3% Complication of up to 1% including cardiac puncture and injury to the electrical system requiring permanent pacing I had a detailed discussion with patient regarding the mechanism SVT, effect of medical treatment, role of EP study and radiofrequency ablation success rates risks complications long to failure rates I would recommend reducing the dose of diltiazem 280 mg by mouth daily if metoprolol is to be added But this should be only a temporary phase of management and I would recommend that for his symptomatic SVT he proceed with an EP study and ablation HPI patient presented to the hospital with presyncope. He's had recurrent episodes for the last one a half years He was advised by fluorescent lighting model maker to perform a Valsalva maneuver whenever he had these episodes. This would usually work but this time it did not Lead ECG this time showed supra ventricular tachycardia, short RP tachycardia, refractory to Cardizem CD 240 mg by mouth daily Responded to IV adenosine Past history of hypertension and SVT treated with Cardizem CD 240 mrem by mouth daily History of dyslipidemia ROS: No fever chills or rigors, no cough, phlegm or expectoration, no nausea, vomiting or diarrhea, no hematuria, dysuria, no musculoskeletal complaints, no strokes or seizures, no skin lesions. Patient presented with presyncope and weakness EXAMINATION: On examination blood pressure 159/76. His mercury, pulse rate in the 60s, normal respirations Afebrile Normal heart sounds Breath sounds are normal line abdomen soft Extremities are warm REVIEW OF LABS, ECG & MEDICAL DATA Labs are reviewed normal electrolytes troponin 0.8 TSH 3.9 Hemoglobin 12.7 Home medications include Cardizem CD 240 mrem daily, Vasotec and Dyazide Baseline twelve-lead ECG shows sinus rhythm normal AR narrow QRS Q waves in the precordial leads V1-V3 Twelve-lead ECG. During SVT shows supraventricular tachycardia, short RP tachycardia RP interval 80-120 ms Heart rate 169 beats a minute Past Medical History Past Medical History: Hypertension, Supraventricular Tachycardia (SVT) Additional Past Medical History / Comment(s): murmur History of Any Multi-Drug Resistant Organisms: None Reported Past Surgical History: No Surgical Hx Reported Additional Past Surgical History / Comment(s): growth in bladder removed 2007 Past Anesthesia/Blood Transfusion Reactions: No Reported Reaction Smoking Status: Never smoker - Past Family History Father Family Medical History: Myocardial Infarction (ME) Medications and Allergies Home Medications Medication Instructions Recorded Confirmed Type Cholecalciferol [Vitamin D3] 1,000 unit PO DAILY 04/24/18 04/24/18 History Diltiazem Cd [Cardizem CD] 240 mg PO DAILY 04/24/18 04/24/18 History Enalapril [Vasotec] 5 mg PO DAILY 04/24/18 04/24/18 History Multivitamins, Thera [Multivitamin 1 tab PO DAILY 04/24/18 04/24/18 History (formulary)] Triamterene-Hctz 37.5-25Mg 1 cap PO DAILY 04/24/18 04/24/18 History [Dyazide 37.5-25 Capsule] Allergies Allergy/AdvReac Type Severity Reaction Status Date / Time Penicillins Allergy Rash/Hives Verified 04/24/18 12:01 Sulfa (Sulfonamide Allergy Rash/Hives Verified 04/24/18 12:01 Antibiotics) Physical Exam Vitals: Vital Signs Temp Pulse Resp BP Pulse Ox 04/26/18 12:00 98.1 F 68 18 159/76 97 04/26/18 08:00 97.4 F L 74 18 158/78 97 04/26/18 04:06 97.7 F 51 L 18 156/73 97 04/26/18 00:40 96.1 F L 58 L 18 148/73 95 04/25/18 20:00 97.3 F L 68 18 151/78 97 Intake and Output 04/26/18 04/26/18 04/26/18 06:59 14:59 22:59 Intake Total 480 Output Total 500 465 Balance -500 15 Intake: Oral 480 Output: Urine 500 Straight 500 Post Void Residual 465 Other: Voiding Method Toilet Toilet # Voids 1 Weight 75.3 kg Results 04/25/18 04:09 04/26/18 05:56 Coagulation 04/25/18 04/26/18 Range/Units 19:23 05:56 APTT 67.9 H 70.2 H (22.0-30.0) sec Comprehensive Metabolic Panel 04/26/18 Range/Units 05:56 Sodium 138 (137-145) mmol/L Potassium 3.8 (3.5-5.1) mmol/L Chloride 109 H (98-107) mmol/L Carbon Dioxide 25 (22-30) mmol/L BUN 19 (9-20) mg/dL Creatinine 0.92 (0.66-1.25) mg/dL Glucose 95 (74-99) mg/dL Calcium 8.7 (8.4-10.2) mg/dL Current Medications Generic Name Dose Route Start Last Admin Trade Name Freq PRN Reason Stop Dose Admin Aspirin 81 mg 04/25/18 09:00 04/26/18 09:20 Aspirin PO 81 mg DAILY BHARAT Administration Diltiazem HCl 240 mg 04/25/18 09:00 04/26/18 09:20 Cardizem Cd PO 240 mg DAILY BHARAT Administration Heparin Sodium/Sodium Chloride 250 mls @ 8.25 mls/hr 04/24/18 13:00 04/25/18 13:52 25,000 unit/ Sodium Chloride IV 20 units/kg/hr .Q24H BHARAT 13.75 mls/hr Administration Protocol 12 UNITS/KG/HR Sodium Chloride 1,000 mls @ 75 mls/hr 04/24/18 15:45 04/25/18 17:53 Saline 0.9% IV 75 mls/hr .[id number] BHARAT Administration Lisinopril 10 mg 04/25/18 09:00 04/26/18 09:20 Zestril PO 10 mg DAILY BHARAT Administration Metoprolol Tartrate 25 mg 04/25/18 21:00 04/26/18 09:20 Lopressor PO 25 mg BID BHARAT Administration Nitroglycerin 0.4 mg 04/24/18 13:12 Nitrostat SUBLINGUAL Q5M PRN Chest Pain Triamterene/HCTZ 1 each 04/25/18 09:00 04/26/18 09:20 Dyazide PO 1 each DAILY BHARAT Administration Intake and Output 04/26/18 04/26/18 04/26/18 06:59 14:59 22:59 Intake Total 480 Output Total 500 465 Balance -500 15 Intake: Oral 480 Output: Urine 500 Straight 500 Post Void Residual 465 Other: Voiding Method Toilet Toilet # Voids 1 Weight 75.3 kg 04/25/18 04:09 04/26/18 05:56
[2018-04-26] MEDS ORDERED: ENALAPRILAT 1.25 MG/ML 1 ML VIAL IVP PRN (17:30)
[2018-04-26] MEDS: TAMSULOSIN 0.4 MG CAP.ER.24H PO SCH (18:13)
[2018-04-26] MEDS: SODIUM CHLORIDE 0.9% 1,000 ML IV SCH ×2 (18:14→22:41)
[2018-04-26] MEDS: HEPARIN SOD,PORK IN 0.45% NACL 25,000 UNIT in 0.45% NACL 1 250ML.BAG IV SCH (22:40)
[2018-04-27] MEDS: HEPARIN SOD,PORK IN 0.45% NACL 25,000 UNIT in 0.45% NACL 1 250ML.BAG IV SCH (02:06)
[2018-04-27] MEDS: TAMSULOSIN 0.4 MG CAP.ER.24H PO SCH (09:21)
[2018-04-27] MEDS: LISINOPRIL 10 MG TAB PO SCH (09:21)
[2018-04-27] MEDS: ASPIRIN 81 MG PO SCH (09:21)
[2018-04-27] MEDS: METOPROLOL TARTRATE 25 MG TAB PO SCH (09:21)
[2018-04-27] MEDS: TRIAMTERENE-HCTZ 37.5-25MG 1 EACH CAP PO SCH (09:21)
--- NOTE | 2018-04-27 12:21 | P.DS ---
Providers Date of admission: 04/24/18 13:12 Expected date of discharge: 04/27/18 Attending physician: Adeel Love MD Consults: 04/24/18 13:12 Consult Physician Urgent Consulting Provider: [facility] Consult Reason/Comments: N STEMI, SVT Do you want consulting provider notified?: Yes 04/26/18 12:25 Consult Physician Routine Consulting Provider: Adriel Wells Consult Reason/Comments: SVT Do you want consulting provider notified?: Yes 04/26/18 12:44 Consult Physician Urgent Consulting Provider: Adriel Wells Consult Reason/Comments: svt Do you want consulting provider notified?: Yes Primary care physician: [facility] Course: Very pleasant 83-year-old gentleman with a past medical history significant for hypertension, hyperlipidemia him a prior erythema comes in with symptoms of dizziness and weakness. He said that he's been having symptoms of weakness and that would get better with him taking rest and bearing down but this time it did not get better so he came to the ER for further evaluation and management. In the ER he was found to be in SVT. He was given adenosine and which brought him back to normal sinus rhythm. He was started on heparin Cardizem was continued. Patient was seen by cardiology and elective physiology service. They recommended that the patient needs to have SVT ablation. His Cardizem dose was reduced to 180 mg and he was added on Lopressor 25 mg twice a day. On 04/27/2018 On exam, alert and oriented x3. HEENT: Conjunctivae normal. eyes normal. NECK: No JVD. No thyroid enlargement. No LNs CARDIOVASCULAR: S1, S2 muffled. No murmur RESPIRATION: Breath sounds diminished in the bases. No rhonchi or crackles. No bronchial breathing. ABDOMEN: Soft, nontender . No guarding. no masses palpable. No ascites, No hepatosplenomegaly.Bowel sounds heard. LEGS: No edema. no swelling NERVOUS SYSTEM: Cranial N 2-12 grossly normal. Moves all 4 limbs. No focal deficits. No sensory deficit. No signs of cerebellar dysfucntion. Skin: no ulcer no rash Joints: No active swelling. No inflammation. Lymphatic system. No LN neck axilla or groin. Plan - Patient to be discharged to follow up with Dr. gee as an outpatient on the date stated above in the discharge summary for ablation procedure - Patient is to hold Cardizem and Lopressor as indicated by cardiology - Patient is to continue the medications. Patient Condition at Discharge: Fair Plan - Discharge Summary New Discharge Prescriptions: New Aspirin 81 mg PO DAILY #30 chew Diltiazem Cd [Cardizem Cd] 180 mg PO DAILY #30 cap.er.24h Metoprolol Tartrate [Lopressor] 25 mg PO BID #60 tab Nitroglycerin Sl Tabs [Nitrostat] 0.4 mg SUBLINGUAL Q5M PRN #30 tab PRN Reason: Chest Pain Tamsulosin [Flomax] 0.4 mg PO PC-BRKFST #30 cap.er.24h Continue Triamterene-Hctz 37.5-25Mg [Dyazide 37.5-25 Capsule] 1 cap PO DAILY Multivitamins, Thera [Multivitamin (formulary)] 1 tab PO DAILY Enalapril [Vasotec] 5 mg PO DAILY Cholecalciferol [Vitamin D3] 1,000 unit PO DAILY Discontinued Diltiazem Cd [Cardizem CD] 240 mg PO DAILY Discharge Medication List Cholecalciferol [Vitamin D3] 1,000 unit PO DAILY 04/24/18 [History] Enalapril [Vasotec] 5 mg PO DAILY 04/24/18 [History] Multivitamins, Thera [Multivitamin (formulary)] 1 tab PO DAILY 04/24/18 [History ] Triamterene-Hctz 37.5-25Mg [Dyazide 37.5-25 Capsule] 1 cap PO DAILY 04/24/18 [ History] Aspirin 81 mg PO DAILY #30 chew 04/27/18 [Rx] Diltiazem Cd [Cardizem Cd] 180 mg PO DAILY #30 cap.er.24h 04/27/18 [Rx] Metoprolol Tartrate [Lopressor] 25 mg PO BID #60 tab 04/27/18 [Rx] Nitroglycerin Sl Tabs [Nitrostat] 0.4 mg SUBLINGUAL Q5M PRN #30 tab 04/27/18 [Rx ] Tamsulosin [Flomax] 0.4 mg PO PC-BRKFST #30 cap.er.24h 04/27/18 [Rx] Follow up Appointment(s)/Referral(s): Dombroske,Leanna, DO [Primary Care Provider] - 05/02/18 2:00 pm (Wednesday) Patient Instructions/Handouts: Supraventricular Tachycardia (DC) Activity/Diet/Wound Care/Special Instructions: If you have any chest pain, racing heart, any lightheadedness or dizziness, any weakness, any palpitations, any tingling numbness of any extremities, any headache, any to come back to the ER right away Discharge Disposition: HOME SELF-CARE
[2018-04-27] MEDS ORDERED: DILTIAZEM CD 180 MG CAP.ER.24H PO SCH (13:00)
--- NOTE | 2018-04-27 14:15 | CDI ---
Documentation Clarification Form Date: 04/27/2018 2:05:10 PM From: Valarie Brown CCS, CCDS Admit Date: 04/24/2018 1:12:00 PM Patient Name: Rc De Paz Visit Number: [id number] Discharge Date: ATTENTION: The Clinical Documentation Specialists (CDI) and [facility] Coding Staff appreciate your assistance in clarifying documentation. Please respond to the clarification below the line at the bottom and electronically sign. The CDI & [facility] Coding staff will review the response and follow-up if needed. Please note: Queries are made part of the Legal Health Record. If you have any questions, please contact the author of this message via ITS. Dr. Adeel Love: The ED impression states generalized weakness, SVT & NSTEMI. Per the attending subsequent History & Physical & Progress Notes: "rule out non- STEMI". Patient History/Risk Factors: Hypertension, Heart murmur. Family history of [place]. Clinical Indicators: Presented with weakness via EMS. Heart rate in ER jumped to 170s, SVT. Patient has had recurrent syncopal episodes with SVT. Troponin: 0.122^^, 0.649^^, 0.809^^ EKG Results: R 88 sinus rhythm with occasional PVCs, no ST segment elevation or depression or T wave abnormalities noted. Treatment: IV Adenosine x2, IV fluid bolus, IV Heparin drip, Nitro sl. EP head greenskeeper was consulted for possible EPS & RF ablation. In order to capture the severity of condition and necessary documentation specificity, please clarify: non STEMI ruled in non STEMI ruled out Other [place] type, please specify Other, please specify Unable to determine If ruled in, please specify if present on admission. (Last Revision: November 2016) ___Pt admitted for NSTEMI , CATH NEGATIVE. Medical managment _ MTDD
--- NOTE | 2018-04-27 15:20 | P.PN ---
Subjective Progress Note Date: 04/27/18 This is a pleasant 83-year-old gentleman with history of hypertension, hyperlipidemia, prior arrhythmia, who presented to the hospital with symptoms of dizziness and near syncope. According to the patient, 2-1/2 years ago he had similar symptoms, his had recently at that time. He went to [facility], had a rapid heart rhythm at that time. He was instructed then to follow up with a gantry crane operator. He did see Dr. Sanders, who did stress testing and echo, patient was advised that if he felt the symptoms again that he needed to take a deep breath and cough. He did have a few subsequent episodes since that time that resolved with taking a deep breath and coughing. On of this past week he had similar symptoms, attempted to do this and the symptoms resolved. Yesterday morning he again develop symptoms of dizziness and near syncope, attempted to take a deep breath and cough however the symptoms persisted, he again tried the same thing with no results. For this reason he came to the emergency room at [facility] for further evaluation and treatment. His EKG performed on arrival here showed a supraventricular tachycardia, patient was given adenosine 6 mg and then 12 mg and subsequently converted to normal sinus rhythm. He remains in a normal sinus rhythm this morning. Chest x-ray shows mild elongated thoracic aorta, chronic appearing changes with no definite acute process noted. CTA of the chest was also performed which revealed mild diffuse bronchial wall thickening suggestive of bronchitis or asthma. Prior granulomatous disease with numerous scattered borderline and nonenlarged mediastinal and hilar lymph nodes. No evidence of PE. Possible cystic lesions of the pancreas measuring up to 1.2 cm. Blood pressure on arrival here 150/100, 98% on room air. Blood pressure this morning 105/60 with a heart rate in the 70s, 99% on room air. White blood cell count 7.1 on admission, hemoglobin 15.1 on admission, white blood cell count this morning 5.2 with a hemoglobin of 12.7. D-dimer 0.6. Sodium 138, potassium 4.1, BUN 27 and creatinine 0.9. Troponin 0.12, 0.64, 0.80. At the time of my examination this morning, patient feels wel l, he denies any dizziness or lightheadedness, no palpitations. 04/26/2018 Patient seen and examined this morning, no further episodes of SVT noted through the night. Dr. Fontanez did have a lengthy discussion with the patient and family regarding SVT ablation. We will consult Dr. Wells. Echocardiogram with Doppler study remains pending. TSH level 3.9. 04/27/2018 Patient was seen and examined this morning, no further episodes of supraventricular tachycardia noted on the monitor. Dr. Wells did see the patient in consultation last evening, highly recommended an SVT ablation. Tori godfrey has agreed to proceed with this. He will be discharged home today, ablation is scheduled for the . He will go home on Cardizem 180 mg daily along with Lopressor 25 mg twice a day, both of these will be discontinued as of the , he will therefore taken none of the Cardizem or Lopressor on the 02 03 or , ablation scheduled for the . Objective - Vital Signs Vital signs: Vital Signs Temp 98.6 F 04/27/18 05:09 Pulse 67 04/27/18 05:09 Resp 18 04/27/18 05:09 BP 131/71 04/27/18 05:09 Pulse Ox 96 04/27/18 05:09 Intake & Output 04/26/18 04/27/18 04/27/18 18:59 06:59 18:59 Intake Total 970 240 Output Total 1065 3075 Balance -95 -3075 240 Weight 74.7 kg Intake: Intake, IV Titration 250 Amount Heparin Sod,Pork in 0.45% 250 NaCl 25,000 unit In 0.45 % NaCl 1 250ml.bag @ 12 UNITS/KG/HR 8.25 mls/hr IV .Q24H [facility] Rx#: [id number] Oral 720 240 Output: Urine 600 3075 Straight 1200 Post Void Residual 465 Other: Voiding Method Toilet Indwelling Catheter - Exam PHYSICAL EXAMINATION: GENERAL: 83-year-old gentleman in no acute distress at the time of my examination HEENT: Head is atraumatic, normocephalic. Pupils equal, round. Sclera anicteric. Conjunctiva are clear. Mucous membranes of the mouth are moist. Neck is supple. There is no elevated jugular venous pressure. No carotid bruit is heard. HEART EXAMINATION: Heart S1, S2 normal. No murmur or gallop heard. CHEST EXAMINATION: Lungs are clear to auscultation and precussion. No chest wall tenderness is noted on palpation or with deep breathing. ABDOMEN: Soft, nontender. Bowel sounds are heard. No organomegaly noted. EXTREMITIES: 2+ peripheral pulses with no evidence of peripheral edema and no calf tenderness noted. NEUROLOGIC patient is awake, alert and oriented 3 . . - Labs CBC & Chem 7: 04/25/18 04:09 04/26/18 05:56 Labs: Abnormal Lab Results - Last 24 Hours (Table) 04/27/18 Range/Units 05:49 APTT 57.9 H (22.0-30.0) sec Assessment and Plan Plan: Assessment and plan #1 symptoms of dizziness and near syncope with evidence is supraventricular tachycardia, 2 doses of adenosine given patient is currently in normal sinus rhythm. #2 patient has history of arrhythmia, exact details unavailable #3 hypertension #4 hyperlipidemia #5 abnormality in troponin, likely secondary to supraventricular tachycardia Plan Patient may be able to be discharged home today. He will go home on Cardizem CD 180 mg daily along with Lopressor 25 twice a day. He is scheduled to undergo an SVT ablation on the of this month. Patient will stop taking the Cardizem and Lopressor as of the on May 03, May 04, and May 05. DNP note has been reviewed, I agree with a documented findings and plan of care. Patient was seen and examined.
[2018-04-27 15:26] VITALS: BP 151/70; PULSE 70; RESP 18; TEMP 98
--- NOTE | 2018-04-27 19:13 | ECHOF ---
Referral Reason:svt MEASUREMENTS -------- HEIGHT: 170.2 cm WEIGHT: 73.5 kg BP: IVSd: 1.7 cm (0.6 - 1.1) LVIDd: 3.2 cm (3.9 - 5.3) LVPWd: 1.9 cm (0.6 - 1.1) IVSs: 2.0 cm LVIDs: 1.8 cm LVPWs: 2.2 cm LAESV Index (A-L): 20.32 ml/m Ao Diam: 3.1 cm (2.0 - 3.7) AV Cusp: 1.9 cm (1.5 - 2.6) LA Diam: 2.9 cm (2.7 - 3.8) MV EXCURSION: 15.488 mm (> 18.000) MV EF SLOPE: 37 mm/s (70 - 150) EPSS: 0.4 cm MV E Stan: 0.92 m/s MV DecT: 254 ms MV A Stan: 1.12 m/s MV E/A Ratio: 0.82 AV maxP.21 mmHg AV meanP.27 mmHg AR PHT: 583 ms RAP: 5.00 mmHg RVSP: 8.53 mmHg FINDINGS -------- Sinus rhythm. This was a technically good study. The left ventricular size is normal. There is severe concentric left ventricular hypertrophy. Ove rall left ventricular systolic function is normal with, an EF between 55 - 60 %. The right ventricle is normal in size and function. Normal LA size by volume 22+/-6 ml/m2. The right atrium is normal in size. There is mild to moderate aortic valve sclerosis. There is mild aortic regurgitation. There is mi ld aortic stenosis present. Peak/mean gradient across the Aortic Valve is 15.21mmHg / 10.27mmHg. Mild mitral annular calcification present. [id number] mitral regurgitation is present. Mild tricuspid regurgitation present. There is no evidence of pulmonary hypertension. The right v entricular systolic pressure, as measured by Doppler, is 8.53mmHg. Trace/mild (physiologic) pulmonic regurgitation. The aortic root size is normal. Normal inferior vena cava with normal inspiratory collapse consistent with estimated right atrial pre ssure of 5 mmHg. There is no pericardial effusion. CONCLUSIONS -------- 1. Sinus rhythm. 2. This was a technically good study. 3. The left ventricular size is normal. 4. There is severe concentric left ventricular hypertrophy. 5. Overall left ventricular systolic function is normal with, an EF between 55 - 60 %. 6. Normal LA size by volume 22+/-6 ml/m2. 7. There is mild to moderate aortic valve sclerosis. 8. There is mild aortic regurgitation. 9. There is mild aortic stenosis present. 10. Peak/mean gradient across the Aortic Valve is 15.21mmHg / 10.27mmHg. 11. Mild mitral annular calcification present. 12. [id number] mitral regurgitation is present. 13. Mild tricuspid regurgitation present. 14. There is no evidence of pulmonary hypertension. 15. Trace/mild (physiologic) pulmonic regurgitation. 16. The aortic root size is normal. 17. Normal inferior vena cava with normal inspiratory collapse consistent with estimated right atrial pressure of 5 mmHg. 18. There is no pericardial effusion. CLIENT COORDINATOR: Nessa Soni RDCS
== END 2018-04-27 15:10 | disposition home or self-care (01) | DRG 281 ==
LOC: EC 09:35 → 3SCARD 13:12
PROVIDERS: ADMIT Internal Medicine; ATTEND Internal Medicine
DX: I21.4 Non-ST elevation (NSTEMI) myocardial infarction (principal); I47.1 Supraventricular tachycardia; N17.9 Acute kidney failure, unspecified; I48.91 Unspecified atrial fibrillation; E11.9 Type 2 diabetes mellitus without complications; E78.5 Hyperlipidemia, unspecified; F32.9 Major depressive disorder, single episode, unspecified; I10 Essential (primary) hypertension; Z82.49 Family history of ischemic heart disease and other diseases of the circulatory system; I49.3 Ventricular premature depolarization; R74.8 Abnormal levels of other serum enzymes; Z79.899 Other long term (current) drug therapy
CPT/HCPCS: 36415; 71046; 71275; 80048; 80053; 80061; 81003; 83605; 83735; 84443; 84484; 85025; 85027; 85379; 85610; 85730; 93005; 93306; 96361; 96365; 96366; 96375; 96376; 99291

== ENCOUNTER → 2018-05-20 | Outpatient (CLI) | payer MEDICARE ==
[2018-05-20 12:19] LABS: HCT 41.3 % (39.0-53.0); HGB 13.8 gm/dL (13.0-17.5); MCH 30.7 pg (25.0-35.0); MCHC 33.5 g/dL (31.0-37.0); MCV 91.6 fL (80.0-100.0); Mean Platelet Volume 6.6; Platelet Count 222 k/uL (150-450); RDW 13.4 % (11.5-15.5); WBC 6.2 k/uL (3.8-10.6)
[2018-05-20 12:29] LABS: Potassium 4.3 mmol/L (3.5-5.1)
== END | disposition home or self-care (01) ==
LOC: LABPAT 11:02
PROVIDERS: ATTEND Internal Medicine Clinical Cardiac Electrophysiology
DX: Z01.812 Encounter for preprocedural laboratory examination (principal); I47.1 Supraventricular tachycardia
CPT/HCPCS: 80051; 82565; 82947; 84520; 85027

== ENCOUNTER 2018-05-31 11:52 | Day surgery (SDC) | payer MEDICARE ==
[2018-05-31] MEDS ORDERED: SODIUM CHLORIDE 0.9% 1,000 ML IV ONE (12:34)
[2018-05-31] MEDS ORDERED: ISOPROTERENOL 250 MCG/1.25 ML SYR IV ONE (13:15)
[2018-05-31] MEDS ORDERED: KETAMINE 10 MG/ML 20 ML VIAL ONE ×2 (13:15)
[2018-05-31] MEDS ORDERED: MIDAZOLAM 2 MG/2 ML VIAL ONE (13:15)
[2018-05-31] MEDS ORDERED: PROPOFOL 10 MG/ML 20 ML VIAL IV ONE (13:15)
[2018-05-31] MEDS ORDERED: LIDOCAINE 1% INJ 10MG/ML (20 ML MDV) ONE ×2 (13:26→13:47)
[2018-05-31] MEDS ORDERED: HEPARIN SODIUM 1,000 UN/ML (10ML VL) ONE (13:32)
[2018-05-31] MEDS ORDERED: LIDOCAINE 1% INJ 10MG/ML (20 ML MDV) SQ ONE ×2 (13:47→13:50)
[2018-05-31] MEDS ORDERED: ACETAMINOPHEN TAB 325 MG TAB PO PRN (15:51)
[2018-05-31] MEDS ORDERED: HYDROcodone/APAP 5-325MG 1 EACH TAB PO PRN (15:56)
[2018-05-31] MEDS ORDERED: ACETAMINOPHEN IV (For NPO) 1,000 MG in EMPTY BAG 1 BAG IVPB ONE (16:30)
[2018-05-31 16:45] VITALS: BMI 25.2
[2018-05-31] MEDS: SODIUM CHLORIDE 0.9% 1,000 ML IV SCH (18:31)
[2018-05-31 19:27] VITALS: RESP 18
[2018-06-01] MEDS: SODIUM CHLORIDE 0.9% 1,000 ML IV SCH (03:56)
[2018-06-01 07:24] VITALS: BP 155/78; PULSE 74; TEMP 97.7
--- NOTE | 2018-06-01 08:42 | CE ---
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 He is brought in for a diagnostic EP study and radiofrequency ablation. Patient was brought to the EP lab in a fasting state. Written informed consent was obtained prior to the procedure. Both groins were prepped and draped as per protocol. Venous sheaths were placed in the right and left femoral veins. Diagnostic catheters were positioned the right heart (high right atrial catheter, His bundle catheter, RV catheter and coronary sinus catheter). Baseline measurements were as follows: Sinus cycle length 671 milliseconds, OR 168 milliseconds, QRS 95 milliseconds, QT 359 milliseconds. AH interval 91 milliseconds, HV interval 61 milliseconds. Sinus node recovery times at 500 and 400 milliseconds were 816 and 862 milliseconds. Corresponding corrected sinus node recovery times within normal limits. AV node Wenckebach block 360 milliseconds. No evidence of slow pathway conduction. No delta waves. VA Wenckebach block 340 milliseconds. 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 Ventricular pacing was not able to entrain the tachycardia. A long sheath was placed in the right atrium and a 4 mm tip ablation catheter was placed in the right atrium. The slow pathway was mapped and just anterior to the coronary sinus, RF ablation was performed. Junctional rhythm was obtained. Good power and temperature were achieved. Following that, a full EP study was performed on and off Isuprel. RV pacing was performed. Extra stimulation from the ventricle was performed. Straight pacing was performed from the atria and the coronary sinus. No further evidence for AV pan reentry. Please note that when we induced AV pan reentry, his blood pressure went from 147 mmHg systolic to 57 mmHg systolic while in the supine position consistent with his history of presyncope and syncope with these episodes. During catheter manipulation in the right atrium, he did induce any atrial tachycardia with a short cycle length and his blood pressure did drop with this, but this was during catheter manipulation within the right atrial appendage area. Electrical cardioversion was successfully performed. PLAN: Discontinue metoprolol. Continue all other medications including Cardizem and watch for any episodes of atrial tachycardia or atrial fibrillation in the future. RESULT: Successful mapping and ablation of the slow pathway for management of AV pan reentry. MMODL / IJN: [id number] /
[2018-06-01] MEDS ORDERED: TRIAMTERENE-HCTZ 37.5-25MG 1 EACH CAP PO SCH (09:00)
[2018-06-01] MEDS ORDERED: LISINOPRIL 10 MG TAB PO SCH (09:00)
[2018-06-01] MEDS ORDERED: ASPIRIN 81 MG PO SCH (09:00)
[2018-06-01] MEDS ORDERED: DILTIAZEM CD 180 MG CAP.ER.24H PO SCH (09:00)
--- NOTE | 2018-06-01 14:12 | P.DS ---
Providers Attending physician: Adriel Wells Primary care physician: [facility] Course: Patient is doing very well. His resting comfortably in bed. He did ambulate in the room. His groins of healed up well No chest discomfort dizziness lightheadedness or palpitations overnight 20 ECG shows a mildly prolonged interval sinus rhythm Breath sounds are clear no rhonchi no crackles Heart sounds S1 and S2 are normal no murmurs or gallop. Abdomen soft nontender External days warm groins of healed well no hematoma no swelling Impression symptomatic SVT with hypotension. Patient dropped his blood pressure by 90 mmHg in the supine position Successful radio frequency ablation for tachycardia was rendered noninducible With catheter manipulation and atrial tachycardia/atrial flutter fibrillation was induced when minute ablating around the right atrial appendage base. He req uired electrical cardioversion for this So far we have not documented any clinical episodes of atrial fibrillation. This episode did drop his pressure Plan Discharge home today Stop metoprolol Continue other medication: Cardizem Follow-up with primary icu clerk Plan - Discharge Summary Discharge Rx Participant: No New Discharge Prescriptions: No Action Triamterene-Hctz 37.5-25Mg [Dyazide 37.5-25 Capsule] 1 cap PO DAILY Multivitamins, Thera [Multivitamin (formulary)] 1 tab PO DAILY Enalapril [Vasotec] 5 mg PO DAILY Cholecalciferol [Vitamin D3] 1,000 unit PO DAILY Aspirin 81 mg PO DAILY #30 chew Metoprolol Tartrate [Lopressor] 25 mg PO BID #60 tab Nitroglycerin Sl Tabs [Nitrostat] 0.4 mg SUBLINGUAL Q5M PRN #30 tab PRN Reason: Chest Pain Tamsulosin [Flomax] 0.4 mg PO PC-BRKFST #30 cap.er.24h Diltiazem Cd [Cardizem CD] 180 mg PO DAILY #30 cap.er.24h Discharge Medication List Cholecalciferol [Vitamin D3] 1,000 unit PO DAILY 04/24/18 [History] Enalapril [Vasotec] 5 mg PO DAILY 04/24/18 [History] Multivitamins, Thera [Multivitamin (formulary)] 1 tab PO DAILY 04/24/18 [History] Triamterene-Hctz 37.5-25Mg [Dyazide 37.5-25 Capsule] 1 cap PO DAILY 04/24/18 [History] Aspirin 81 mg PO DAILY #30 chew 04/27/18 [Rx] Diltiazem Cd [Cardizem CD] 180 mg PO DAILY #30 cap.er.24h 04/27/18 [Rx] Metoprolol Tartrate [Lopressor] 25 mg PO BID #60 tab 04/27/18 [Rx] Nitroglycerin Sl Tabs [Nitrostat] 0.4 mg SUBLINGUAL Q5M PRN #30 tab 04/27/18 [Rx] Tamsulosin [Flomax] 0.4 mg PO PC-BRKFST #30 cap.er.24h 04/27/18 [Rx] Follow up Appointment(s)/Referral(s): Марина Fontanez MD [STAFF PHYSICIAN] - 1 Week (office will call the patient with scheduled date and time after speaking to Dr. Fontanez for groin check post ablation in 1-2 weeks.) Patient Instructions/Handouts: Cardiac Ablation (DC) Discharge Disposition: HOME SELF-CARE
--- NOTE | 2018-06-01 14:14 | P.PRLE ---
RE: [facility] Dear Kingsley Mr. De Paz had inducible supraventricular tachycardia. He has had episodes has been very symptomatic with presyncope During AV pan reentrant tachycardia his blood pressure dropped by 90 mmHg in the supine position consistent with the symptoms He underwent successful mapping and ablation for his tachycardia Later with catheter manipulation and was able to induce and organized atrial fibrillation which also resulted in a small drop in blood pressure did however they have not seen any clinical arrhythmias related to atrial tachycardia or atrial fibrillation so far but we will continue to monitor him. No and granulation for now I have stopped metoprolol and he will continue all his other medications as before Thank you for entrusting me with the care of the patient Warm regards Sincerely Adriel Wells
--- NOTE | 2018-08-04 20:45 | P.DS ---
Providers Attending physician: Adriel Wells Primary care physician: [facility] Course: Patient is doing well postprocedure Groins of healed well No chest discomfort dizziness lightheadedness or shortness of breath Examination reveals normal heart sounds Normal breath sounds Abdomen is soft nontender No hematoma over the groins Impression Supraventricular tachycardia/AV node reentry Status post successful slow pathway ablation Hypertension Dyslipidemia Plan discharge home today and follow-up in the office This is the second discharge summary First discharge summary dictated on 06/01/2018 and signed by me Plan - Discharge Summary Discharge Rx Participant: No New Discharge Prescriptions: No Action Triamterene-Hctz 37.5-25Mg [Dyazide 37.5-25 Capsule] 1 cap PO DAILY Multivitamins, Thera [Multivitamin (formulary)] 1 tab PO DAILY Enalapril [Vasotec] 5 mg PO DAILY Cholecalciferol [Vitamin D3 (25 Mcg = 1000 Iu)] 1,000 unit PO DAILY Aspirin 81 mg PO DAILY #30 chew Metoprolol Tartrate [Lopressor] 25 mg PO BID #60 tab Nitroglycerin Sl Tabs [Nitrostat] 0.4 mg SUBLINGUAL Q5M PRN #30 tab PRN Reason: Chest Pain Tamsulosin [Flomax] 0.4 mg PO PC-BRKFST #30 cap.er.24h Diltiazem Cd [Cardizem CD] 180 mg PO DAILY #30 cap.er.24h Discharge Medication List Cholecalciferol [Vitamin D3 (25 Mcg = 1000 Iu)] 1,000 unit PO DAILY 04/24/18 [History] Enalapril [Vasotec] 5 mg PO DAILY 04/24/18 [History] Multivitamins, Thera [Multivitamin (formulary)] 1 tab PO DAILY 04/24/18 [History] Triamterene-Hctz 37.5-25Mg [Dyazide 37.5-25 Capsule] 1 cap PO DAILY 04/24/18 [History] Aspirin 81 mg PO DAILY #30 chew 04/27/18 [Rx] Diltiazem Cd [Cardizem CD] 180 mg PO DAILY #30 cap.er.24h 04/27/18 [Rx] Metoprolol Tartrate [Lopressor] 25 mg PO BID #60 tab 04/27/18 [Rx] Nitroglycerin Sl Tabs [Nitrostat] 0.4 mg SUBLINGUAL Q5M PRN #30 tab 04/27/18 [Rx] Tamsulosin [Flomax] 0.4 mg PO PC-BRKFST #30 cap.er.24h 04/27/18 [Rx] Follow up Appointment(s)/Referral(s): Марина Fontanez MD [STAFF PHYSICIAN] - 1 Week (office will call the patient with scheduled date and time after speaking to Dr. Fontanez for groin check post ablation in 1-2 weeks.) Patient Instructions/Handouts: Cardiac Ablation (DC) Discharge Disposition: HOME SELF-CARE
--- NOTE | 2018-08-04 20:48 | P.HPCAR ---
History of Present Illness Impression Recurrent palpitations adenosine sensitive Patient being admitted for management of SVT Plan EP study and radiofrequency ablation for SVT History of present illness Recurrent palpitations dizziness and near syncope History of hypertension dyslipidemia Review of systems: No fever chills or rigors, no cough, phlegm or expectoration, no nausea, vomiting or diarrhea, no hematuria, dysuria, no musculoskeletal complaints, no strokes or seizures, no skin lesions. On examination Blood pressure 143/60 mmHg pulse rate in the 70s afebrile Heart sounds are normal normal breath sounds Normal abdomen soft nontender Extremities warm no edema Twelve-lead ECGs are reviewed Impression SVT, recurrent and associated with presyncope Suggest Proceed with EP study and ablation Past Medical History Past Medical History: Cancer, Prostate Disorder Additional Past Medical History / Comment(s): SEE DR POND H&P, bladder ca History of Any Multi-Drug Resistant Organisms: None Reported Past Surgical History: No Surgical Hx Reported Additional Past Surgical History / Comment(s): growth in bladder removed 2007 Past Anesthesia/Blood Transfusion Reactions: No Reported Reaction Past Psychological History: No Psychological Hx Reported Smoking Status: Former smoker Past Alcohol Use History: None Reported Past Drug Use History: None Reported - Past Family History Father Family Medical History: Myocardial Infarction ([place])
== END 2018-06-01 11:20 | disposition home or self-care (01) ==
LOC: CATHEP 11:52 → 1SOBS 15:52 → CATHEP 06-01 11:20
PROVIDERS: ATTEND Internal Medicine Clinical Cardiac Electrophysiology
DX: I47.1 Supraventricular tachycardia (principal); I48.92 Unspecified atrial flutter; I48.91 Unspecified atrial fibrillation; I10 Essential (primary) hypertension; E78.5 Hyperlipidemia, unspecified; Z85.51 Personal history of malignant neoplasm of bladder; Z79.82 Long term (current) use of aspirin; Z79.899 Other long term (current) drug therapy; N42.9 Disorder of prostate, unspecified; Z87.891 Personal history of nicotine dependence; Z88.0 Allergy status to penicillin; Z88.2 Allergy status to sulfonamides; J30.1 Allergic rhinitis due to pollen
CPT/HCPCS: 93623; 93613; 93653; C1769 ×3; C1894 ×2; C1732 ×2; C1730 ×2; C1893; J2250; J2001; J2704

== ENCOUNTER → 2019-04-27 | Outpatient (CLI) | payer MEDICARE ==
--- NOTE | 2019-04-27 12:58 | XR ---
EXAMINATION TYPE: XR chest 2V DATE OF EXAM: 04/27/2019 COMPARISON: 04/24/2018 TECHNIQUE: PA and lateral views submitted. HISTORY: Right rib pain FINDINGS: There is ectasia or aneurysmal dilation of the thoracic aorta similar appearance the prior exam. Diff use osteopenia and arthropathy shoulders. No consolidation or pleural effusion. No pneumothorax. Visualized osseous structures intact. Hypertro phic change of the spine. IMPRESSION: 1. No acute process.
== END | disposition home or self-care (01) ==
LOC: RAD 12:25
PROVIDERS: ATTEND Nurse Practitioner Family
DX: R07.81 Pleurodynia (principal)
CPT/HCPCS: 71046

== ENCOUNTER → 2020-02-27 | Outpatient (CLI) | payer MEDICARE ==
[2020-02-27 10:52] LABS: HGB 12.9 gm/dL (13.0-17.5); MCH 32.6 pg (25.0-35.0); MCHC 33.8 g/dL (31.0-37.0); MCV 96.3 fL (80.0-100.0); Mean Platelet Volume 7.3; Platelet Count 233 k/uL (150-450); RBC 3.95 m/uL (4.30-5.90); WBC 6.6 k/uL (3.8-10.6)
[2020-02-27 10:59] LABS: Potassium 4.1 mmol/L (3.5-5.1)
== END | disposition home or self-care (01) ==
LOC: LABPAT 09:41
PROVIDERS: ATTEND Internal Medicine Cardiovascular Disease
DX: Z01.818 Encounter for other preprocedural examination (principal); R94.39 Abnormal result of other cardiovascular function study
CPT/HCPCS: 36415; 80051; 82565; 84520; 85027

== ENCOUNTER 2020-03-04 09:21 | Inpatient (IN) | payer MEDICARE ==
[~2020-03-04 09:21] MED LIST: ALPRAZolam 0.25 MG TAB PO PRN; ALPRAZolam 0.5 MG TAB PO PRN; ASPIRIN 325 MG TAB PO STA; ATORVASTATIN 80 MG TAB PO STA; HEPARIN SODIUM,PORCINE 10,000 UNIT in SODIUM CHLORIDE 0.9% 1,000 ML IRRIGATION PRN; HEPARIN SODIUM,PORCINE 2,500 UNIT in SODIUM CHLORIDE 0.9% 250 ML IRRIGATION PRN; NITROGLYCERIN SL TABS 0.4 MG TAB SUBLINGUAL PRN; SODIUM CHLORIDE 0.9% 1,000 ML IV ONE; SODIUM CHLORIDE 0.9% 1,000 ML in EMPTY BAG 1 BAG IV ONE
[2020-03-04] MEDS ORDERED: DILTIAZEM CD 180 MG CAP.ER.24H PO STA (09:50)
[2020-03-04] MEDS ORDERED: VERAPAMIL 2.5 MG/ML 2 ML AMP ONE (09:50)
[2020-03-04] MEDS ORDERED: LIDOCAINE 1% INJ 10MG/ML (20 ML MDV) ONE (09:50)
[2020-03-04] MEDS ORDERED: lisinopriL 5 MG TAB PO STA (09:50)
[2020-03-04] MEDS ORDERED: ISOSORBIDE MONONITRATE ER 30 MG TAB.ER.24H PO STA (09:51)
[2020-03-04] MEDS ORDERED: IV FLUID CONTINUATION 1,000 ML IV ONE (09:53)
[2020-03-04] MEDS ORDERED: fentaNYL (PF) 50 MCG/ML 2 ML AMP ONE (10:50)
[2020-03-04] MEDS ORDERED: fentaNYL (PF) 50 MCG/ML 2 ML AMP IVP ONE (11:03)
[2020-03-04] MEDS ORDERED: LIDOCAINE 1% INJ 10MG/ML (20 ML MDV) SQ ONE (11:08)
[2020-03-04] MEDS ORDERED: HEPARIN SODIUM 1,000 UN/ML (10ML VL) ONE (11:10)
[2020-03-04] MEDS ORDERED: VERAPAMIL SYRINGE (5 MG/10 ML) INTRAARTER ONE (11:10)
[2020-03-04] MEDS ORDERED: HEPARIN SODIUM 1,000 UN/ML (10ML VL) IV ONE (11:12)
[2020-03-04] MEDS ORDERED: IOPAMIDOL-370 125ML BTL INJ ONE (11:30)
[2020-03-04] MEDS ORDERED: RX INFO: IV CONTRAST WAS GIVEN 1 EACH MISC MISCELLANE PRN (11:34)
--- NOTE | 2020-03-04 11:44 | P.CARDCATH ---
Date of Procedure: 03/04/20 Preoperative Diagnosis: Angina and positive stress test Postoperative Diagnosis: Critical 2 vessel disease Procedure(s) Performed: Left heart catheterization without left ventriculography Description of Procedure: HISTORY: This is a 85-year-old gentleman with history of hypertension, SVT status post ablation, mild to moderate aortic stenosis and regurgitation and symptoms of exertional shortness of breath. A stress test showed ischemia mostly in the inferior wall area. In view of ongoing symptoms and abnormal stress test, patient is advised to have a cardiac catheterization. CONSENT:I have discussed the risks, benefits and alternative therapies for the above-mentioned procedure and for both sedation/analgesia as well as necessary blood product administration, if indicated, as they pertain to this patient. The patient has indicated understanding and acceptance of the risks and procedures discussed. PROCEDURE: Patient was brought to the lab in a fasting state. Patient was given some IV sedation. The right wrist is infiltrated with lidocaine and right radial artery was entered using Seldinger technique. A 6-Monegasque catheter was left in place and selective coronary arteriography was performed. Patient cas erated the procedure well. TR band was applied for hemostasis. No immediate complications were noted and patient was transferred to [facility] in a stable condition Conscious Sedation: Versed 0mg Fentanyl 25 g Duration 25minutes HEMODYNAMICS: The aortic pressure was about 130/70. The the left ventricle end- diastolic pressure was not measured SELECTIVE CORONARY ARTERIOGRAPHY: LEFT MAIN: Normal length and free of any significant occlusive disease THE LEFT ANTERIOR DESCENDING CORONARY ARTERY: . This is a good caliber vessel with diffuse disease involving the proximal and mid portions with multiple areas of stenosis. The proximal LAD has about 70% stenosis. The mid LAD has about 90% stenosis of 95%. There is diffuse disease in between the distal LAD appears to be free of occlusive disease. There is also about 90% stenosis of the first diagonal THE LEFT CIRCUMFLEX AND IS CORONARY ARTERY: . This is a good caliber vessel giving rise to good-sized PLV branch. Circumflex coronary artery is mild disease without any critical lesions THE RIGHT CORONARY ARTERY: Is a good caliber vessel giving rise to PDA and PLV. The PDA has about a 70-80% stenosis distal LEFT VENTRICULOGRAPHY: Not performed FINAL IMPRESSION: . #1. Coronary artery disease with multiple lesions involving the proximal and mid LAD with a diffuse disease. The circumflex and is coronary artery is free of occlusive disease. The right coronary artery has a lesion in the pocket distal pulses involving the PDA #2. Mild to moderate aortic stenosis and regurgitation by echocardiogram. #3 hypertension #4, SVT status post ablation PLAN: Continue maximal medical therapy. Revascularization. Because of the diffuse nature of the disease, will consult cardiac surgery for open heart surgery. If patient is felt to be high risk by cardiac surgeon, Dr. FREDERICK Lynne will try to do multiple stents in the LAD and diagonal PROGNOSIS: Guarded
--- NOTE | 2020-03-04 14:09 | P.GSCN ---
<Nessa Salcedo - Last Filed: 03/04/20 13:54> History of Present Illness Consult date: 03/04/20 Reason for Consult: Coronary artery disease Requesting physician: Марина Fontanez History of present illness: This is an 85-year-old active gentleman who follows on an outpatient basis with Dr. Leanna Mancia. He has a previous medical history of hypertension, SVT status post ablation in 2019, aortic stenosis with aortic regurgitation, enlar ged prostate, bladder cancer, skin cancer, depression, and family history of heart disease. He has been experiencing exertional angina in the form of shortness of breath with occasional left arm pain. He underwent stress testing which demonstrated hypoperfusion in the infero-apical and inferobasal segment with evidence of complete reversibility, normal wall motion, ejection fraction 60%. Further he had a transthoracic echocardiogram in January 2020 demonstrating EF 60%, grade 2 diastolic dysfunction with severe LVH, mild to moderate aortic insufficiency with mild aortic stenosis, calcified trileaflet aortic valve with valve area 1.36 cm and a mean gradient 14 mmHg, ascending aortic enlargement at 3.7 cm, root enlargement 3.8 cm, mild mitral regurgitation, and mild to moderate tricuspid regurgitation. Due to the patient's abnormal stress test and continued symptoms he was recommended to undergo elective heart catheterization which was completed today by Dr. Fontanez and which demonstrated diffuse LAD disease with proximal stenosis 70%, mid stenosis 90%, first diagonal stenosis 90%, and PDA stenosis 70-80%. Due to these findings consultation was placed to Dr. La from cardiothoracic surgery for surgical revascularization recommendations. Review of Systems Review of systems was completed and was negative except as noted - Cardiovascular Cardiovascular Comment(s): Intermittent left arm pain Reports as per HPI, Reports dyspnea on exertion Past Medical History Past Medical History: Coronary Artery Disease (CAD), Cancer, Chest Pain / Angina, Hearing Disorder / Deafness, Hypertension, Osteoarthritis (OA), Prostate Disorder, Supraventricular Tachycardia (SVT) Additional Past Medical History / Comment(s): SHORTNESS OF BREATH WITH EXERTION with abnormal stress test, SKIN CANCER, bladder cancer, enlarged prostate History of Any Multi-Drug Resistant Organisms: None Reported Past Surgical History: Bladder Surgery Additional Past Surgical History / Comment(s): growth in bladder removed 2007 Past Anesthesia/Blood Transfusion Reactions: No Reported Reaction Past Psychological History: Depression Smoking Status: Never smoker Past Alcohol Use History: None Reported Past Drug Use History: None Reported - Past Family History Father Family Medical History: Myocardial Infarction ([place]) Additional Family Medical History / Comment(s): Father of myocardial infarction at 74 years old Mother Family Medical History: Hypertension Medications and Allergies Home Medications Medication Instructions Recorded Confirmed Type Cholecalciferol [Vitamin D3 (25 1,000 unit PO DAILY 04/24/18 03/04/20 History Mcg = 1000 Iu)] Enalapril [Vasotec] 5 mg PO DAILY 04/24/18 03/04/20 History Multivitamins, Thera [Multivitamin 1 tab PO DAILY 04/24/18 03/04/20 History (formulary)] Triamterene-Hctz 37.5-25Mg 1 cap PO DAILY 04/24/18 03/04/20 History [Dyazide 37.5-25 Capsule] Aspirin 81 mg PO DAILY #30 chew 04/27/18 03/04/20 Rx Diltiazem Cd [Cardizem CD] 180 mg PO DAILY #30 cap.er.24h 04/27/18 03/04/20 Rx Nitroglycerin Sl Tabs [Nitrostat] 0.4 mg SUBLINGUAL Q5M PRN #30 tab 04/27/18 03/04/20 Rx Finasteride [Proscar] 5 mg PO DAILY 03/01/20 03/04/20 History Isosorbide Mononitrate ER [Imdur] 30 mg PO DAILY 03/04/20 03/04/20 History Tamsulosin [Flomax] 0.4 mg PO DAILY 03/04/20 03/04/20 History Allergies Allergy/AdvReac Type Severity Reaction Status Date / Time Penicillins Allergy Rash/Hives Verified 03/04/20 09:36 Sulfa (Sulfonamide Allergy Rash/Hives Verified 03/04/20 09:36 Antibiotics) Surgical - Exam Vital Signs Temp Pulse Resp BP Pulse Ox 98.2 F 86 18 168/105 98 03/04/20 10:08 03/04/20 10:08 03/04/20 10:08 03/04/20 10:08 03/04/20 10:08 - General well developed, well nourished, no distress, no pain - Eyes normal ocular movement - ENT no hearing loss - Neck no masses, no bruits, trachea midline - Respiratory Lungs sounds clear bilaterally. Respirations even, nonlabored. Currently on room air with oxygen saturation 98%. No chest wall deformities. No clubbing or cyanosis present. - Cardiovascular S1, S2 present. Regular rate and rhythm, sinus rhythm on telemetry with heart rate in the 70s. Palpable peripheral pulses bilaterally. No edema present. No calf pain or tenderness noted. - Abdomen Abdomen: soft, non tender, bowel sounds - Genitourinary Deferred - Rectum Deferred - Integumentary no rash, no growths - Neurologic normal coordination, normal sensation - Musculoskeletal normal posture - Psychiatric oriented to time, oriented to person, oriented to place, speech is normal, memory intact Results - Imaging Additional studies: Heart catheterization films were reviewed Assessment and Plan Assessment: 1. Coronary artery disease 2. Hypertension 3. History of SVT status post ablation in 2019 4. Aortic stenosis with aortic regurgitation 5. Enlarged prostate 6. Bladder cancer 7. Skin cancer 8. Depression 9. Never smoker 10. Family history of heart disease. Plan: The patient was seen and examined in the extended stay unit. Chart/diagnostics were reviewed. The case was discussed in detail with Dr. La who will be here today to review films and talk with the patient. The daughter was physically present as well as the son via telephone. The usual perioperative course of coronary artery bypass surgery was discussed in detail with the patient and his family, risks and benefits were reviewed, all questions were answered to the best my ability. The patient is willing to consider surgery, therefore p reoperative testing will be initiated. We recommend continuing aspirin, initiating statin and beta raymond therapy, and continuing other preoperative medications. Once testing has been completed and Dr. La has had the opportunity to review the films and meet with the patient and his family further recommendations will be made regarding surgical revascularization. Thank you Dr. Fontanez for this consult. We look forward to working with you in the care of your patient. Time with Patient: Greater than 30 <David La - Last Filed: 03/04/20 15:47> Surgical - Exam Vital Signs Temp Pulse Resp BP Pulse Ox 98.2 F 86 18 168/105 98 03/04/20 10:08 03/04/20 10:08 03/04/20 10:08 03/04/20 10:08 03/04/20 10:08 Assessment and Plan Plan: The patient was seen and examined. I agree with the above assessment and plan. The patient is an 85 year old male, relatively active, who reports intermittent exertional dyspnea and left upper extremity pain with exertion. Cath reveals LAD/diag/PDA disease. Echo reveals preserved EF with mild MR, mild/mod AI, and mild . Risks, benefits, and alternatives to CABG discussed with patient and his daughter. All of their questions were answered. At this point, he is not sure whether he wishes to proceed with surgery. He would like to re-consider his options including PCI given his advanced age. He will let us know once a decision is made. I discussed these findings with Dr. Fontanez who is in agreement. Further recommendations to follow.
--- NOTE | 2020-03-04 14:53 | US ---
EXAMINATION TYPE: US carotid duplex BILAT DATE OF EXAM: 03/04/2020 COMPARISON: NONE CLINICAL HISTORY: preop cardiac surgery. EXAM MEASUREMENTS: RIGHT: Peak Systolic Velocity (PSV) cm/sec ----- Right CCA: 48.1 ----- Right ICA: 89.9 ----- Right ECA: 97.7 ICA/CCA ratio: 1.9 RIGHT: End Diastole cm/sec ----- Right CCA: 5.1 ----- Right ICA: 19.4 ----- Right ECA: 0 LEFT: Peak Systolic Velocity (PSV) cm/sec ----- Left CCA: 49.4 ----- Left ICA: 83.5 ----- Left ECA: 93.5 ICA/CCA ratio: 1.7 LEFT: End Diastole cm/sec ----- Left CCA: 9.8 ----- Left ICA: 28.5 ----- Left ECA: 0 VERTEBRALS (direction of flow): Right Vertebral: Antegrade Left Vertebral: Antegrade Rhythm: Normal Mild amount of plaque visualized bilaterally. No elevated velocities Grayscale, color Doppler, spectral Doppler imaging performed of the carotid arteries. Waveform analys is does not show significant stenosis of the proximal internal carotid arteries IMPRESSION: No hemodynamic significant stenosis of the proximal internal carotid arteries by Doppler criteria, an indirect measurement of carotid stenosis Criteria for Assigning % of Stenosis / Diameter reduction (Estimation based on the indirect measurements of the internal carotid artery velocities (ICA PSV). 1. Normal (no stenosis)=ICA PSV < 125 cm/s: ratio < 2.0: ICA EDV<40 cm/s. 2. Less than 50% stenosis=ICA PSV < 125 cm/s: ratio < 2.0: ICA EDV<40 cm/s. 3. 50 to 69% stenosis=ICA PSV of 125 to 230 cm/s: ration 2.0 ? 4.0: ICA EDV 40-100 cm/s. 4. Greater than 70% stenosis to near occlusion= ICA PSV > 230 cm/s: ratio > 4.0: ICA EDV > 100 cm/s. 5. Near occlusion= ICA PSV velocities may be low or undetectable: variable ratio and ICA EDV. 6. Total occlusion=unable to detect flow.
--- NOTE | 2020-03-04 17:07 | XR ---
EXAMINATION TYPE: XR chest 2V DATE OF EXAM: 03/04/2020 COMPARISON: 04/27/2019 HISTORY: 85-year-old male preoperative CABG TECHNIQUE: PA and lateral views FINDINGS: Heart borderline in size. Elongation/ectasia of the thoracic aorta. Mild hyperinflation. Mild interst itial prominence and a chronic appearance. No consolidation or pleural effusion. IMPRESSION: 1. Borderline cardiomegaly. 2. Possible underlying COPD. 3. Tortuous/ectatic appearance to the thoracic aorta.
[2020-03-05 08:18] LABS: Basophils % (A) 1 %; Eosinophils # (A) 0.2 k/uL (0-0.7); Eosinophils % (A) 4 %; HCT 36.5 % (39.0-53.0); HGB 12.4 gm/dL (13.0-17.5); Lymphocytes % (A) 18 %; MCH 32.5 pg (25.0-35.0); MCV 95.5 fL (80.0-100.0); Mean Platelet Volume 7.4; Monocytes # (A) 0.5 k/uL (0-1.0); Monocytes % (A) 9 %; Neutrophils # (A) 3.8 k/uL (1.3-7.7); Neutrophils % (A) 68 %; Platelet Count 208 k/uL (150-450); RBC 3.83 m/uL (4.30-5.90); RDW 13.1 % (11.5-15.5); WBC 5.6 k/uL (3.8-10.6)
[2020-03-05 08:26] LABS: Calcium 8.8 mg/dL (8.4-10.2); Potassium 4.1 mmol/L (3.5-5.1)
[2020-03-05] MEDS ORDERED: ALPRAZolam 0.25 MG TAB PO PRN (08:30)
[2020-03-05] MEDS ORDERED: ALPRAZolam 0.5 MG TAB PO PRN (08:30)
[2020-03-05] MEDS ORDERED: NITROGLYCERIN SL TABS 0.4 MG TAB SUBLINGUAL PRN (08:30)
--- NOTE | 2020-03-05 09:39 | P.PN ---
Subjective Progress Note Date: 03/05/20 Principal diagnosis: Coronary artery disease. Previous medical history of hypertension, SVT status post ablation in 2019, aortic stenosis with aortic regurgitation, enlarged prost ate, bladder cancer, skin cancer, depression, never smoker, and family history of heart disease. Patient's currently laying in bed on the cardiac stepdown unit in no acute distress. Denies any shortness of breath or arm pain. Remains in normal sinus rhythm and hemodynamically stable. He was seen yesterday by Dr. La and cardiac surgery was discussed in detail with the patient and his daughter at the bedside. They indicated they wanted some time to think about options. Objective - Vital Signs Vital signs: Vital Signs Temp 97.4 F L 03/05/20 08:00 Pulse 72 03/05/20 08:00 Resp 18 03/05/20 08:00 BP 161/86 03/05/20 08:00 Pulse Ox 96 03/05/20 08:00 Intake & Output 03/04/20 03/05/20 03/05/20 18:59 06:59 18:59 Intake Total 990 560 Balance 990 560 Weight 73 kg Intake: IV 750 Intake, IV Titration 560 Amount Sodium Chloride 0.9% 1, 560 000 ml @ 0 mls/hr IV .[facility] Rx#:[id number] Oral 240 Other: Voiding Method Toilet Toilet Toilet # Voids 1 1 1 - Constitutional General appearance: Present: cooperative, no acute distress - Respiratory Details: Lungs sounds clear bilaterally. Respirations even, nonlabored. Currently on room air with oxygen saturation 96%. - Cardiovascular Details: S1, S2 present. Regular rate and rhythm, sinus rhythm on telemetry with heart rate in the 70s. Palpable peripheral pulses bilaterally. No edema present. No calf pain or tenderness noted. - Gastrointestinal Gastrointestinal Comment(s): Abdomen soft, nontender, nondistended. Active bowel sounds present in 4 quadrants. Tolerating diet. - Genitourinary Genitourinary Comment(s): Continues to void - Integumentary Integumentary Comment(s): Skin is warm and dry. Right radial heart catheterization site without redness or drainage, T-Band in place but deflated - Neurologic Neurologic: Present: CNII-XII intact - Musculoskeletal Musculoskeletal: Present: gait normal, strength equal bilaterally - Psychiatric Psychiatric: Present: A&O x's 3, appropriate affect, intact judgment & insight - Allied health notes Allied health notes reviewed: nursing - Labs CBC & Chem 7: 03/05/20 07:32 03/05/20 07:32 Labs: Abnormal Lab Results - Last 24 Hours (Table) 03/05/20 03/05/20 Range/Units 07:32 07:32 RBC 3.83 L (4.30-5.90) m/uL Hgb 12.4 L (13.0-17.5) gm/dL Hct 36.5 L (39.0-53.0) % BUN 22 H (9-20) mg/dL Glucose 100 H (74-99) mg/dL - Imaging and Cardiology Chest x-ray: report reviewed, image reviewed Heart catheterization films, carotid Doppler studies, vein mapping were all reviewed with Dr. La Assessment and Plan Assessment: 1. Coronary artery disease 2. Hypertension 3. History of SVT status post ablation in 2019 4. Aortic stenosis with aortic regurgitation 5. Enlarged prostate 6. Bladder cancer 7. Skin cancer 8. Depression 9. Never smoker 10. Family history of heart disease. Plan: 1. Continue current medical therapy 2. The patient has decided to opt for stenting. This will be completed by Dr. Lynne 3. Our contact information was left with the patient should he need surgical intervention in the future 4. Please contact us with any further questions Time with Patient: Greater than 30
[2020-03-05] MEDS: FINASTERIDE 5 MG TAB PO SCH (09:41)
[2020-03-05] MEDS: TRIAMTERENE-HCTZ 37.5-25MG 1 EACH CAP PO SCH (09:41)
[2020-03-05] MEDS: ASPIRIN 81 MG PO SCH (09:41)
[2020-03-05] MEDS: lisinopriL 10 MG TAB PO SCH (09:41)
[2020-03-05] MEDS: DILTIAZEM CD 180 MG CAP.ER.24H PO SCH (09:41)
[2020-03-05] MEDS: ISOSORBIDE MONONITRATE ER 30 MG TAB.ER.24H PO SCH (09:41)
[2020-03-05] MEDS: TAMSULOSIN 0.4 MG CAP.ER.24H PO SCH (09:41)
[2020-03-05] MEDS: METOPROLOL TARTRATE 12.5 MG TAB PO SCH (12:59)
[2020-03-05] MEDS: MULTIVITAMINS, THERA 1 EACH TAB PO SCH (12:59)
[2020-03-05] MEDS: CHOLECALCIFEROL 1,000 UNIT TAB PO SCH (12:59)
--- NOTE | 2020-03-05 13:26 | ECHOF ---
Referral Reason:LV function MEASUREMENTS -------- HEIGHT: 170.2 cm WEIGHT: 72.6 kg BP: IVSd: 2.0 cm (0.6 - 1.1) LVIDd: 3.2 cm (3.9 - 5.3) LVPWd: 1.9 cm (0.6 - 1.1) IVSs: 2.5 cm LVIDs: 2.4 cm LVPWs: 2.0 cm LAESV Index (A-L): 20.43 ml/m Ao Diam: 2.5 cm (2.0 - 3.7) AV Cusp: 0.9 cm (1.5 - 2.6) LA Diam: 3.3 cm (2.7 - 3.8) MV EXCURSION: 11.453 mm (> 18.000) MV EF SLOPE: 31 mm/s (70 - 150) EPSS: 0.5 cm MV E Stan: 0.96 m/s MV DecT: 133 ms MV A Stan: 1.02 m/s MV E/A Ratio: 0.95 AV maxP.25 mmHg AV meanP.62 mmHg AR PHT: 1266 ms RAP: 5.00 mmHg RVSP: 43.57 mmHg FINDINGS -------- This was a technically good study. The left ventricular size is normal. There is severe concentric left ventricular hypertrophy. Ove rall left ventricular systolic function is low-normal with, an EF between 50 - 55 %. Increased LAP Grade 2 Diastolic Dysfunction. The right ventricle is normal in size. The left atrial size is normal. Normal LA size by volume 22+/-6 ml/m2. The right atrial size is normal. Aortic valve is trileaflet and is moderately thickened. There is mild aortic regurgitation. There is mild aortic stenosis present. Peak/mean gradient across the Aortic Valve is 22.25mmHg / 11.62mm Hg. The mitral valve is normal. The mitral valve leaflets are mildly thickened. Mild mitral regurgita tion is present. The tricuspid valve appears structurally normal. Mild tricuspid regurgitation present. There is m ild pulmonary hypertension. The right ventricular systolic pressure, as measured by Doppler, is 43. 57mmHg. There is no pulmonic regurgitation present. The aortic root size is normal. Normal inferior vena cava with normal inspiratory collapse consistent with estimated right atrial pre ssure of 5 mmHg. There is a trivial pericardial effusion present. CONCLUSIONS -------- 1. The left ventricular size is normal. 2. There is severe concentric left ventricular hypertrophy. 3. Overall left ventricular systolic function is low-normal with, an EF between 50 - 55 %. 4. Increased LAP Grade 2 Diastolic Dysfunction. 5. Aortic valve is trileaflet and is moderately thickened. 6. There is mild aortic regurgitation. 7. There is mild aortic stenosis present. 8. Peak/mean gradient across the Aortic Valve is 22.25mmHg / 11.62mmHg. 9. The mitral valve leaflets are mildly thickened. 10. Mild mitral regurgitation is present. 11. Mild tricuspid regurgitation present. 12. There is mild pulmonary hypertension. 13. The right ventricular systolic pressure, as measured by Doppler, is 43.57mmHg. 14. There is a trivial pericardial effusion present. DOPSTER: Nessa Soni RDCS
--- NOTE | 2020-03-05 13:50 | CONS ---
CONSULTATION DATE OF CONSULTATION: 03/04/20 I have seen, examined, and agree with the midlevel's findings. MMODL / IJN: [id number] / -[id number]
[2020-03-05] MEDS ORDERED: SODIUM CHLORIDE 0.9% 1,000 ML in EMPTY BAG 1 BAG IV ONE (18:00)
[2020-03-06] MEDS: ASPIRIN 81 MG PO SCH (06:10)
[2020-03-06] MEDS: ISOSORBIDE MONONITRATE ER 30 MG TAB.ER.24H PO SCH (06:15)
[2020-03-06] MEDS: DILTIAZEM CD 180 MG CAP.ER.24H PO SCH (06:15)
[2020-03-06] MEDS: FINASTERIDE 5 MG TAB PO SCH (06:15)
[2020-03-06] MEDS: MULTIVITAMINS, THERA 1 EACH TAB PO SCH (06:15)
[2020-03-06] MEDS: METOPROLOL TARTRATE 12.5 MG TAB PO SCH (06:15)
[2020-03-06] MEDS: lisinopriL 10 MG TAB PO SCH (06:15)
[2020-03-06] MEDS: CHOLECALCIFEROL 1,000 UNIT TAB PO SCH (06:15)
[2020-03-06] MEDS: TAMSULOSIN 0.4 MG CAP.ER.24H PO SCH (06:16)
[2020-03-06] MEDS: TRIAMTERENE-HCTZ 37.5-25MG 1 EACH CAP PO SCH (06:16)
[2020-03-06] MEDS ORDERED: ATORVASTATIN 80 MG TAB PO ONE (07:00)
[2020-03-06] MEDS ORDERED: ASPIRIN 325 MG TAB PO ONE (07:00)
[2020-03-06] MEDS ORDERED: HEPARIN SODIUM,PORCINE 10,000 UNIT in SODIUM CHLORIDE 0.9% 1,000 ML IRRIGATION PRN (07:00)
[2020-03-06] MEDS ORDERED: HEPARIN SODIUM,PORCINE 2,500 UNIT in SODIUM CHLORIDE 0.9% 250 ML IRRIGATION PRN (07:00)
[2020-03-06] MEDS ORDERED: IV FLUID CONTINUATION 1,000 ML IV ONE (10:26)
[2020-03-06] MEDS ORDERED: LIDOCAINE 1% INJ 10MG/ML (20 ML MDV) ONE (10:36)
[2020-03-06] MEDS ORDERED: MIDAZOLAM 2 MG/2 ML VIAL IVP ONE (10:55)
[2020-03-06] MEDS ORDERED: LIDOCAINE 1% INJ 10MG/ML (20 ML MDV) SQ ONE (10:59)
[2020-03-06] MEDS: HEPARIN SODIUM 1,000 UN/ML (10ML VL) IV ONE ×5 (11:00→12:46)
[2020-03-06] MEDS ORDERED: HEPARIN SODIUM 1,000 UN/ML (10ML VL) ONE (11:01)
--- NOTE | 2020-03-06 11:21 | P.VSCSTY ---
Greater Saphenous Vein Mapping This is bilateral lower extremity greater saphenous vein mapping. Date of service: 03/04/2020 Vein quality and ultrasound appearance: We see no intra-luminal thrombus or wall changes. Vein size groin right : 8 x 8 groin left: 7 x 6 High thigh right: 5 x 4 high thigh left: 5 x 5 Mid thigh right: 4 x 4 mid thigh left: 4 x 4 Above-knee right: 3 x 3 above-knee left: 4 x 4 Below knee right: 3 x 3 below-knee left: 4 x 4 Mid calf right: 4 x 3 mid calf left: 5 x 4 Ankle right: 3 x 3 ankle left: 4 x 3 Impression: Usable bilateral greater saphenous vein.
[2020-03-06] MEDS: NITROGLYCERIN 1000MCG/10ML SYRINGE INTRACORON ONE ×2 (11:33→12:33)
[2020-03-06] MEDS ORDERED: IOPAMIDOL-370 100ML BTL INJ ONE ×3 (11:51→12:39)
[2020-03-06] MEDS ORDERED: CLOPIDOGREL 75 MG TAB ONE (12:36)
[2020-03-06] MEDS ORDERED: CLOPIDOGREL 75 MG TAB PO ONE (12:42)
[2020-03-06] MEDS ORDERED: NITROGLYCERIN SL TABS 0.4 MG TAB SUBLINGUAL PRN (13:01)
[2020-03-06] MEDS ORDERED: ZOLPIDEM 5 MG TAB PO PRN (13:01)
[2020-03-06] MEDS ORDERED: RX INFO: IV CONTRAST WAS GIVEN 1 EACH MISC MISCELLANE PRN (13:01)
[2020-03-06] MEDS ORDERED: ATROPINE SULFATE 0.1 MG/ML 10ML SYRINGE IV PRN (13:01)
[2020-03-06] MEDS ORDERED: MAG HYDROX/AL HYDROX/SIMETH 30 ML CUP PO PRN (13:01)
[2020-03-06] MEDS: SODIUM CHLORIDE 0.9% 1,000 ML IV SCH (13:13)
--- NOTE | 2020-03-06 13:46 | PTCA ---
PERCUTANEOUSTRANS CORORONARY ANGIOGRAPHY DATE OF SERVICE: 03/06/2020. PROCEDURE: 1. PTCA and stenting of the major diagonal branch of LAD. 2. PTCA and stenting of proximal and mid LAD with 2 drug-eluting stents. 3. PTCA of mid LAD with a noncompliant balloon. PERFORMED BY: Dr. Ko Lynne. Moderate conscious sedation time was 116 minutes. The patient was administered Versed. Oxygen saturation, hemodynamics and EKG were monitored closely. CLINICAL INFORMATION: Mr. Rc De Paz is an 85-year-old gentleman with a history of SVT status post ablation, hypertension, hyperlipidemia, who came into the hospital with what seems to be symptoms suggestive of unstable angina and had a positive stress test as well. He underwent cardiac cath on Wednesday performed by Dr. Fontanez. The cath revealed diffuse disease in the proximal mid LAD as well as a major diagonal branch without significant disease in circumflex and RCA. He was advised initially surgery, but after talking to the surgeon and there was some reluctance both on the part of the surgeon as well as the patient and daughter and they wished to pursue percutaneous approach. I spent a lot of time on the phone with the patient's daughter and with the patient himself in person, explained to him the risk is high because of the diffuse nature of disease, extreme tortuosity in the LAD system. However, I would try the percutaneous approach. I gave them a 90% success rate and 10% complication rate. PROCEDURE NOTE: Under local anesthesia and strict aseptic precautions, a 6-Kosovan introducer was placed in the right femoral artery. I used a JL3.5 curve guide catheter to cannulate the left coronary artery. Using a Whisper short wire, I crossed the lesion. The diagonal kept distally. I used a 2.0 NC Trek balloon and dilated the diagonal branch. Initially I tried to advance a 12 mm Lorenzo stent but I had difficulty switched over to 8 mm stent with this I was able to advance beyond the tortuosity and the stent was deployed in the proximal portion of the diagonal where there was a 90% stenosis. Excellent angiographic result was achieved, but distally there was still some diffuse disease in the diagonal noted, but the flow improved remarkably. I then tried with great difficulty, after multiple attempts, I was able to wire the LAD which was extremely tortuous vessel, especially at the origin of the diagonal branch. The wire was kept distally and then I tried to use a Teleport catheter to exchanged this to a nitinol wire to perform CSI, but I had difficulty advancing the Teleport catheter. I then decided not to do orbital atherectomy and used a long run-through wire with a steep curve. With this I was able to keep the wire distally. I used a 2.0 caliber 15 mm NC Trek balloon with this and using a lot of forward push with a guide catheter, I was able to get the balloon into the mid LAD beyond the tortuous area and dilated the mid LAD with excellent angiographic result. I felt I could not advance the stent beyond the extreme angulation in the mid LAD where the diagonal took off. I then used a GuideLiner to improve the guide support and I deployed a 2.75 caliber 15 mm Xience stent right at the tortuosity where the diagonal came off and another 2.75 caliber 8 mm stent proximal to it. Excellent angiographic result was achieved of the proximal and mid LAD. However, the diagonal flow was good and the lesion in the diagonal also opened up well. Mid LAD had a decent flow. There was some recoil with a 40% narrowing in the mid LAD. Overall, the result was modest to the fairly decent result considering the tortuosity, angulation and calcification. Results were discussed with the patient as well as with his daughter. I reviewed the images. I explained to them that we will pursue medical therapy and consider a stress test in 6 weeks to see if there is any reversibility in the anterior wall. Patient received 600 mg of Plavix. He received heparin intravenously and the ACT was 262 with some variability. The sheath was taken out and Angio-Seal device used to secure hemostasis and patient was sent to the room in a stable condition. The diagonal vessel in the proximal portion was stented, proximal and mid LAD was stented with drug-eluting stent and mid LAD was dilated with a noncompliant balloon. Overall angiographic result was good with improved flow. Patient was asymptomatic with SIMIN-3 flow. EKG was unremarkable. He was sent to the room in a stable condition. Results were discussed with the patient and daughter. MMODL / IJN: [id number] /
[2020-03-06 14:09] VITALS: BMI 25.2
[2020-03-07] MEDS: SODIUM CHLORIDE 0.9% 1,000 ML IV SCH (02:50)
[2020-03-07 08:03] LABS: Basophils % (A) 0 %; Eosinophils # (A) 0.2 k/uL (0-0.7); Eosinophils % (A) 3 %; HGB 13.1 gm/dL (13.0-17.5); Lymphocytes # (A) 1.2 k/uL (1.0-4.8); Lymphocytes % (A) 15 %; MCH 31.3 pg (25.0-35.0); MCHC 32.8 g/dL (31.0-37.0); MCV 95.5 fL (80.0-100.0); Mean Platelet Volume 7.4; Monocytes # (A) 0.5 k/uL (0-1.0); Monocytes % (A) 7 %; Neutrophils # (A) 5.7 k/uL (1.3-7.7); Neutrophils % (A) 73 %; Platelet Count 235 k/uL (150-450); RBC 4.18 m/uL (4.30-5.90); RDW 13.5 % (11.5-15.5); WBC 7.8 k/uL (3.8-10.6)
[2020-03-07 08:14] LABS: Calcium 9.4 mg/dL (8.4-10.2)
[2020-03-07] MEDS: FINASTERIDE 5 MG TAB PO SCH (08:28)
[2020-03-07] MEDS: MULTIVITAMINS, THERA 1 EACH TAB PO SCH (08:28)
[2020-03-07] MEDS: METOPROLOL TARTRATE 12.5 MG TAB PO SCH (08:28)
[2020-03-07] MEDS: ASPIRIN 81 MG PO SCH (08:28)
[2020-03-07] MEDS: CHOLECALCIFEROL 1,000 UNIT TAB PO SCH (08:29)
[2020-03-07] MEDS: ISOSORBIDE MONONITRATE ER 30 MG TAB.ER.24H PO SCH (08:29)
[2020-03-07] MEDS: ATORVASTATIN 40 MG TAB PO SCH (08:29)
[2020-03-07] MEDS: lisinopriL 10 MG TAB PO SCH (08:29)
[2020-03-07] MEDS: TAMSULOSIN 0.4 MG CAP.ER.24H PO SCH (08:29)
[2020-03-07] MEDS: DILTIAZEM CD 180 MG CAP.ER.24H PO SCH (08:29)
[2020-03-07] MEDS: CLOPIDOGREL 75 MG TAB PO SCH (08:29)
[2020-03-07] MEDS: TRIAMTERENE-HCTZ 37.5-25MG 1 EACH CAP PO SCH (08:33)
--- NOTE | 2020-03-07 15:57 | P.PN ---
Subjective HISTORY OF PRESENTING ILLNESS This is a pleasant 85-year-old male with history of hypertension, SVT status post ablation, mild to moderate aortic stenosis and coronary artery disease. Patient has been having symptoms of shortness of breath and had a stress test which showed ischemia in the inferior wall. Patient initially had a diagnostic heart catheterization performed which showed obstructive diagonal and LAD disease and 70-80% PDA stenosis. Patient was assessed by cardiothoracic surgery and after discussions with patient and family, decision was made to undergo stenting. Patient underwent lengthy procedure yesterday with stenting of a long LAD lesion as well as a diagonal branch. There were some areas of tortuosity and some more moderate disease which was left for medical therapy. Patient denies any chest pain or pressure. He states he does not have any symptoms throughout the procedure yesterday and has been feeling well. The right femoral site appears stable without hematoma. REVIEW OF SYSTEMS At the time of my exam: CONSTITUTIONAL: Denies fever or chills. CARDIOVASCULAR: Denies chest pain, shortness of breath, orthopnea, PND or palpitations. RESPIRATORY: Denies cough. GASTROINTESTINAL: Denies abdominal pain. NEUROLOGIC: Denies numbness, tingling or weakness. ENDOCRINE: Denies fatigue, weight change, polydipsia or polyurina. GENITOURINARY: Denies burning, hematuria or urgency with micturation. HEMATOLOGIC: Denies history of anemia or bleeding. PHYSICAL EXAMINATION Blood pressure 134/83 heart rate 83 afebrile and maintaining oxygen saturation on room air. CONSTITUTIONAL: No apparent distress. HEENT: Head is normocephalic. Pupils are equal, round. Sclerae anicteric. Mucous membranes of the mouth are moist. No JVD. No carotid bruit. CHEST EXAMINATION: Lungs are clear to auscultation. No chest wall tenderness is noted on palpation or with deep breathing. HEART EXAMINATION: Regular rate and rhythm. S1, S2 heard. No murmurs, gallops or rub. ABDOMEN: Soft, nontender. Positive bowel sounds. EXTREMITIES: 2+ peripheral pulses, no lower extremity edema and no calf tenderness. No hematoma noted on the right femoral site. NEUROLOGIC EXAMINATION: Patient is awake, alert and oriented x3. ASSESSMENT 1. Coronary artery disease with long LAD lesion as well as diagonal stenosis status post PCI of the LAD and diagonal. There is still residual moderate disease felt best treated medically at this time. Additionally patient does have PDA 7080% stenosis. 2. Essential hypertension 3. Hyperlipidemia 4. Mild to moderate aortic stenosis 5. Status post SVT ablation 6. History of bladder cancer PLAN Continue dual anti- platelets with aspirin and Plavix. Patient has been doing well status post PCI yesterday. PCI however was fairly complicated long lesion and we will continue to monitor patient with hopeful discharge in 24 hours. Objective - Vital Signs Vital signs: Vital Signs Temp 98.6 F 03/07/20 12:11 Pulse 83 03/07/20 12:11 Resp 16 03/07/20 12:11 BP 134/83 03/07/20 12:11 Pulse Ox 96 03/07/20 12:11 Intake & Output 03/06/20 03/07/20 03/07/20 18:59 06:59 18:59 Intake Total 750 10 240 Output Total 350 Balance 400 10 240 Weight 73.3 kg 71.8 kg Intake: IV 150 Intake, IV Titration 600 10 Amount Sodium Chloride 0.9% 1, 600 10 000 ml @ 75 mls/hr IV . [id number] Rx#:[id number] Oral 240 Output: Urine 350 Other: Voiding Method Urinal Toilet Toilet # Voids 3 2 1 - Labs CBC & Chem 7: 03/07/20 07:28 03/07/20 07:28 Labs: Abnormal Lab Results - Last 24 Hours (Table) 03/07/20 03/07/20 Range/Units 07:28 07:28 RBC 4.18 L (4.30-5.90) m/uL BUN 22 H (9-20) mg/dL Glucose 102 H (74-99) mg/dL
[2020-03-08] MEDS: lisinopriL 10 MG TAB PO SCH (06:34)
[2020-03-08 08:21] VITALS: RESP 18
[2020-03-08] MEDS: TRIAMTERENE-HCTZ 37.5-25MG 1 EACH CAP PO SCH (08:21)
[2020-03-08] MEDS: ASPIRIN 81 MG PO SCH (08:21)
[2020-03-08] MEDS: METOPROLOL TARTRATE 12.5 MG TAB PO SCH (08:21)
[2020-03-08] MEDS: ATORVASTATIN 40 MG TAB PO SCH (08:21)
[2020-03-08] MEDS: FINASTERIDE 5 MG TAB PO SCH (08:21)
[2020-03-08] MEDS: DILTIAZEM CD 180 MG CAP.ER.24H PO SCH (08:21)
[2020-03-08] MEDS: TAMSULOSIN 0.4 MG CAP.ER.24H PO SCH (08:21)
[2020-03-08] MEDS: CHOLECALCIFEROL 1,000 UNIT TAB PO SCH (08:21)
[2020-03-08] MEDS: MULTIVITAMINS, THERA 1 EACH TAB PO SCH (08:21)
[2020-03-08] MEDS: ISOSORBIDE MONONITRATE ER 30 MG TAB.ER.24H PO SCH (08:21)
[2020-03-08] MEDS: CLOPIDOGREL 75 MG TAB PO SCH (08:21)
[2020-03-08 12:52] VITALS: BP 136/85; PULSE 95; TEMP 97.8
--- NOTE | 2020-03-08 15:49 | P.DS ---
Providers Date of admission: 03/04/20 11:34 Expected date of discharge: 03/08/20 Attending physician: Марина Fontanez Consults: 03/04/20 11:37 Consult Physician Urgent Consulting Provider: Trino Schaefer Consult Reason/Comments: CAD Do you want consulting provider notified?: Yes 03/06/20 13:01 Consult Physician Routine Consulting Provider: [facility] Consult Reason/Comments: Post Interventional patient Do you want consulting provider notified?: Already Contacted Primary care physician: [facility] Course: 85-year-old male who underwent outpatient elective cardiac catheterization with Dr. Fontanez on 03/04/2020. Patient was found to have coronary artery disease with multiple lesions involving the proximal and mid LAD with diffuse disease. The circumflex coronary artery disease is free of occlusive disease. Right coronary artery has a lesion in the pocket distal pulses involving the PDA #2. Ylom-us-prllzopa aortic stenosis and regurgitation. The patient was admitted to the hospital and cardiothoracic surgery was consulted for evaluation for possible revascularization. The patient was evaluated by cardiothoracic surgery and he decided to undergo stenting versus CABG. The patient underwent stenting of the major diagonal branch of the LAD and stenting of the proximal and mid LAD with 2 drug-eluting stents by Dr. Lynne on 03/06/2020. The patient is doing well and was deemed stable for discharge today. He is to follow up on an outpatient basis. Please see EMR for further hospital course details. Discharge diagnosis 1. Coronary artery disease with long LAD lesion as well as diagonal stenosis status post PCI of the LAD and diagonal. There is still residual moderate disease felt best treated medically at this time. Additionally patient does have PDA 7080% stenosis. 2. Essential hypertension 3. Hyperlipidemia 4. Mild to moderate aortic stenosis 5. Status post SVT ablation 6. History of bladder cancer Nurse practitioner note has been reviewed by physician. Signing provider agrees with the documented findings, assessment, and plan of care. Plan - Discharge Summary Discharge Rx Participant: No New Discharge Prescriptions: New Atorvastatin [Lipitor] 40 mg PO DAILY #30 tab Metoprolol Tartrate [Lopressor] 12.5 mg PO DAILY #30 tab Clopidogrel [Plavix] 75 mg PO DAILY #30 tab Continue Triamterene-Hctz 37.5-25Mg [Dyazide 37.5-25 Capsule] 1 cap PO DAILY Multivitamins, Thera [Multivitamin (formulary)] 1 tab PO DAILY Enalapril [Vasotec] 5 mg PO DAILY Cholecalciferol [Vitamin D3 (25 Mcg = 1000 Iu)] 1,000 unit PO DAILY Aspirin 81 mg PO DAILY #30 chew Nitroglycerin Sl Tabs [Nitrostat] 0.4 mg SUBLINGUAL Q5M PRN #30 tab PRN Reason: Chest Pain Diltiazem Cd [Cardizem CD] 180 mg PO DAILY #30 cap.er.24h Finasteride [Proscar] 5 mg PO DAILY Tamsulosin [Flomax] 0.4 mg PO DAILY Isosorbide Mononitrate ER [Imdur] 30 mg PO DAILY Discharge Medication List Cholecalciferol [Vitamin D3 (25 Mcg = 1000 Iu)] 1,000 unit PO DAILY 04/24/18 [History] Enalapril [Vasotec] 5 mg PO DAILY 04/24/18 [History] Multivitamins, Thera [Multivitamin (formulary)] 1 tab PO DAILY 04/24/18 [History] Triamterene-Hctz 37.5-25Mg [Dyazide 37.5-25 Capsule] 1 cap PO DAILY 04/24/18 [History] Aspirin 81 mg PO DAILY #30 chew 04/27/18 [Rx] Diltiazem Cd [Cardizem CD] 180 mg PO DAILY #30 cap.er.24h 04/27/18 [Rx] Nitroglycerin Sl Tabs [Nitrostat] 0.4 mg SUBLINGUAL Q5M PRN #30 tab 04/27/18 [Rx] Finasteride [Proscar] 5 mg PO DAILY 03/01/20 [History] Isosorbide Mononitrate ER [Imdur] 30 mg PO DAILY 03/04/20 [History] Tamsulosin [Flomax] 0.4 mg PO DAILY 03/04/20 [History] Atorvastatin [Lipitor] 40 mg PO DAILY #30 tab 03/08/20 [Rx] Clopidogrel [Plavix] 75 mg PO DAILY #30 tab 03/08/20 [Rx] Metoprolol Tartrate [Lopressor] 12.5 mg PO DAILY #30 tab 03/08/20 [Rx] Follow up Appointment(s)/Referral(s): Марина Fontanez MD [STAFF PHYSICIAN] - 03/12/20 3:00 pm Patient Instructions/Handouts: Acute Coronary Syndrome (DC), Heart Catheterization (DC) Discharge Disposition: HOME SELF-CARE
== END 2020-03-08 13:37 | disposition home or self-care (01) | DRG 247 ==
LOC: CATHCVL 09:21 → 3SCARD 11:34
PROVIDERS: ADMIT Internal Medicine Cardiovascular Disease; ATTEND Internal Medicine Cardiovascular Disease
PROC: 4A023N7 Measurement of Cardiac Sampling and Pressure, Left Heart, Percutaneous Approach (ICD-10-PCS; 2020-03-04)
PROC: B2111ZZ Fluoroscopy of Multiple Coronary Arteries using Low Osmolar Contrast (ICD-10-PCS; 2020-03-04)
PROC: 027136Z Dilation of Coronary Artery, Two Arteries with Three Drug-eluting Intraluminal Devices, Percutaneous Approach (ICD-10-PCS; principal; 2020-03-06 10:30)
DX: I25.10 Atherosclerotic heart disease of native coronary artery without angina pectoris (principal); E78.5 Hyperlipidemia, unspecified; F32.9 Major depressive disorder, single episode, unspecified; H91.90 Unspecified hearing loss, unspecified ear; I10 Essential (primary) hypertension; N40.0 Benign prostatic hyperplasia without lower urinary tract symptoms; I35.2 Nonrheumatic aortic (valve) stenosis with insufficiency; Z85.828 Personal history of other malignant neoplasm of skin; Z85.51 Personal history of malignant neoplasm of bladder; Z79.899 Other long term (current) drug therapy; Z79.82 Long term (current) use of aspirin; Z82.49 Family history of ischemic heart disease and other diseases of the circulatory system; Z88.0 Allergy status to penicillin; Z88.2 Allergy status to sulfonamides
CPT/HCPCS: 71046; 80048; 85025; 93306; 93454; 93880; 93970; 94150; 94760

== ENCOUNTER → 2020-05-28 | Outpatient (CLI) | payer MEDICARE ==
--- NOTE | 2020-05-28 10:18 | XR ---
EXAMINATION TYPE: XR Hip Complete RT DATE OF EXAM: 05/28/2020 CLINICAL HISTORY: pain TECHNIQUE: AP and frogleg views of the right hip are obtained. COMPARISON: None. FINDINGS: There is no acute fracture/dislocation evident. The joint space appears moderately degen erative joint space narrowing. Superior acetabular spurring which may result in femoral acetabular im pingement. The overlying soft tissue appears unremarkable. IMPRESSION: 1. There is no acute fracture or dislocation. ICD 10 NO FRACTURE, INITIAL EVALUATION
== END | disposition home or self-care (01) ==
LOC: RADXRMAIN 09:47
PROVIDERS: ATTEND Nurse Practitioner Family
DX: M25.551 Pain in right hip (principal)
CPT/HCPCS: 73502

== ENCOUNTER → 2020-06-25 | Outpatient (CLI) | payer MEDICARE ==
--- NOTE | 2020-06-25 13:04 | XR ---
EXAMINATION TYPE: XR shoulder complete LT DATE OF EXAM: 06/25/2020 CLINICAL HISTORY: pain COMPARISON: NONE TECHNIQUE: Three views of the left shoulder are obtained. FINDINGS: There is no acute fracture/dislocation evident. The acromioclavicular and glenohumeral susanna int spaces appear moderately narrowed. Associated spur formation noted. The visualized ribs are intac t and unremarkable. IMPRESSION: 1. There is no acute fracture or dislocation. ICD 10 NO FRACTURE, INITIAL EVALUATION
== END | disposition home or self-care (01) ==
LOC: RADXRMAIN 12:46
PROVIDERS: ATTEND Family Medicine
DX: M25.512 Pain in left shoulder (principal)

== ENCOUNTER → 2020-09-10 | Outpatient (CLI) | payer MEDICARE ==
--- NOTE | 2020-09-10 19:54 | XR ---
Left knee HISTORY: Left knee pain 4 views of left knee Joint space loss, subchondral sclerosis, marginal spurring is greatest in the medial compartment. Bon e mineralization overall is reduced. There are vascular calcifications noted incidentally. No fractur e or dislocation. IMPRESSION: Osteoarthritis.
== END | disposition home or self-care (01) ==
LOC: RADXRMAIN 11:25
PROVIDERS: ATTEND Family Medicine
DX: M17.12 Unilateral primary osteoarthritis, left knee (principal)

== ENCOUNTER 2021-02-15 20:42 | Inpatient (IN) | payer MEDICARE ==
--- NOTE | 2021-02-15 21:51 | ED ---
Weakness HPI - General Chief complaint: Weakness Stated complaint: weakness Time Seen by Provider: 02/15/21 21:22 Source: patient Mode of arrival: wheelchair Limitations: no limitations - History of Present Illness Initial comments: This patient is an 85-year-old man who arrives here with his daughter with complaint of generalized weakness and fatigue which is been getting worse for nearly 2 weeks now. The patient had COVID-19 booster shot nearly 2 weeks ago, and then has been complaining of loss of appetite, fatigue and weakness which is been getting worse. The patient had been tested for coronavirus 2 days ago which was negative. denies complaints. Denies focal weakness. MD Complaint: generalized weakness Onset/Timin -: week(s) Location: generalized Severity scale (1-10): 0 Consistency: constant Improves with: none Worsens with: exertion Associated Symptoms: loss of appetite - Related Data Home Medications Medication Instructions Recorded Confirmed Enalapril [Vasotec] 5 mg PO DAILY 04/24/18 02/15/21 Triamterene-Hctz 37.5-25Mg 1 cap PO DAILY 04/24/18 02/15/21 [Dyazide 37.5-25 Capsule] Tamsulosin [Flomax] 0.4 mg PO DAILY 03/04/20 02/15/21 Ascorbic Acid [Vitamin C] 1,000 mg PO DAILY 02/15/21 02/15/21 Calcium Carbonate [Calcium] 600 mg PO DAILY 02/15/21 02/15/21 Cholecalciferol [Vitamin D3 (25 25 mcg PO DAILY 02/15/21 02/15/21 Mcg = 1000 Iu)] Diltiazem HCl [Diltiazem HCl 24Hr 180 mg PO DAILY 02/15/21 02/15/21 ER] Isosorbide Mononitrate ER [Imdur] 60 mg PO DAILY 02/15/21 02/15/21 Metoprolol Tartrate [Lopressor] 25 mg PO DAILY 02/15/21 02/15/21 Naproxen Sodium [Aleve] 220 mg PO DAILY 02/15/21 02/15/21 Previous Rx's Medication Instructions Recorded Aspirin 81 mg PO DAILY #30 chew 04/27/18 Allergies Allergy/AdvReac Type Severity Reaction Status Date / Time Penicillins Allergy Rash/Hives Verified 02/15/21 23:07 Sulfa (Sulfonamide Allergy Rash/Hives Verified 02/15/21 23:07 Antibiotics) Review of Systems ROS Statement: Those systems with pertinent positive or pertinent negative responses have been documented in the HPI. ROS Other: All systems not noted in ROS Statement are negative. Constitutional: Reports: weakness. Denies: fever, chills Eyes: Denies: vision change ENT: Denies: throat pain, congestion Respiratory: Denies: cough, dyspnea, wheezes Cardiovascular: Denies: chest pain, palpitations, orthopnea, edema, syncope Endocrine: Reports: fatigue Gastrointestinal: Denies: abdominal pain, nausea, vomiting, diarrhea, constipation Genitourinary: Denies: dysuria, hematuria Musculoskeletal: Denies: back pain Skin: Denies: rash Neurological: Denies: headache, weakness, numbness Past Medical History Past Medical History: Coronary Artery Disease (CAD), Cancer, Chest Pain / Angina, Hearing Disorder / Deafness, Hypertension, Osteoarthritis (OA), Prostate Disorder, Supraventricular Tachycardia (SVT) Additional Past Medical History / Comment(s): SHORTNESS OF BREATH WITH EXERTION with abnormal stress test, SKIN CANCER, bladder cancer, enlarged prostate History of Any Multi-Drug Resistant Organisms: None Reported Past Surgical History: Heart Catheterization With Stent Additional Past Surgical History / Comment(s): growth in bladder removed 2007 Past Anesthesia/Blood Transfusion Reactions: No Reported Reaction Past Psychological History: Depression Smoking Status: Never smoker Past Alcohol Use History: None Reported Past Drug Use History: None Reported - Past Family History Father Family Medical History: Myocardial Infarction ([place]) Additional Family Medical History / Comment(s): Father of myocardial infarction at 74 years old Mother Family Medical History: Hypertension General Exam Limitations: no limitations General appearance: alert, in no apparent distress Head exam: Present: atraumatic, normocephalic Eye exam: Present: normal appearance. Absent: scleral icterus, conjunctival injection ENT exam: Present: mucous membranes dry Neck exam: Present: normal inspection Respiratory exam: Present: normal lung sounds bilaterally. Absent: respiratory distress, wheezes, rales, rhonchi, stridor, accessory muscle use Cardiovascular Exam: Present: regular rate, normal rhythm, systolic murmur (Grade 3/6 systolic ejection murmur). Absent: diastolic murmur, rubs, gallop GI/Abdominal exam: Present: soft. Absent: distended, tenderness, guarding, rebound, rigid, mass, pulsatile mass, hernia Extremities exam: Present: normal inspection, normal capillary refill. Absent: pedal edema, calf tenderness Back exam: Present: normal inspection. Absent: CVA tenderness (R), CVA tenderness (L) Neurological exam: Present: alert, oriented X3, CN II-XII intact. Absent: motor sensory deficit Skin exam: Present: warm, dry, intact, normal color. 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 - EKG Results: EKG: interpreted by ERMD, sinus rhythm (With PACs), normal axis, normal ST/T EKG shows: tachycardia (Rate 106 bpm) Medical Decision Making - Lab Data Result diagrams: 02/15/21 22:00 02/15/21 22:00 Lab Results 02/15/21 02/15/21 02/15/21 Range/Units 22:00 22:00 22:00 WBC 8.2 (3.8-10.6) k/uL RBC 3.23 L (4.30-5.90) m/uL Hgb 10.2 L (13.0-17.5) gm/dL Hct 31.1 L (39.0-53.0) % MCV 96.1 (80.0-100.0) fL MCH 31.6 (25.0-35.0) pg MCHC 32.9 (31.0-37.0) g/dL RDW 13.5 (11.5-15.5) % Plt Count 351 (150-450) k/uL MPV 7.6 Neutrophils % 83 % Lymphocytes % 5 % Monocytes % 7 % Eosinophils % 1 % Basophils % 0 % Neutrophils # 6.8 (1.3-7.7) k/uL Lymphocytes # 0.4 L (1.0-4.8) k/uL Monocytes # 0.6 (0-1.0) k/uL Eosinophils # 0.1 (0-0.7) k/uL Basophils # 0.0 (0-0.2) k/uL PT 10.7 (9.0-12.0) sec INR 1.0 (<1.2) APTT 20.3 L (22.0-30.0) sec Sodium (137-145) mmol/L Potassium (3.5-5.1) mmol/L Chloride (98-107) mmol/L Carbon Dioxide (22-30) mmol/L Anion Gap mmol/L BUN (9-20) mg/dL Creatinine (0.66-1.25) mg/dL Est GFR (CKD-EPI)AfAm (>60 ml/min/1.73 sqM) Est GFR (CKD-EPI)NonAf (>60 ml/min/1.73 sqM) Glucose (74-99) mg/dL Plasma Lactic Acid Ren (0.7-2.0) mmol/L Calcium (8.4-10.2) mg/dL Magnesium (1.6-2.3) mg/dL Total Bilirubin (0.2-1.3) mg/dL AST (17-59) U/L ALT (4-49) U/L Alkaline Phosphatase (38-126) U/L Troponin I (0.000-0.034) ng/mL NT-Pro-B Natriuret Pep pg/mL Total Protein (6.3-8.2) g/dL Albumin (3.5-5.0) g/dL Urine Color Yellow Urine Appearance Clear (Clear) Urine pH 5.0 (5.0-8.0) Ur Specific [place] 1.018 (1.001-1.035) Urine Protein Negative (Negative) Urine Glucose (UA) Negative (Negative) Urine Ketones Negative (Negative) Urine Blood Moderate H (Negative) Urine Nitrite Negative (Negative) Urine Bilirubin Negative (Negative) Urine Urobilinogen <2.0 (<2.0) mg/dL Ur Leukocyte Esterase Negative (Negative) Urine RBC 82 H (0-5) /hpf Urine WBC 1 (0-5) /hpf Urine Mucus Rare H (None) /hpf Coronavirus (PCR) (Not Detectd) 02/15/21 02/15/21 02/15/21 Range/Units 22:00 22:00 22:00 WBC (3.8-10.6) k/uL RBC (4.30-5.90) m/uL Hgb (13.0-17.5) gm/dL Hct (39.0-53.0) % MCV (80.0-100.0) fL MCH (25.0-35.0) pg MCHC (31.0-37.0) g/dL RDW (11.5-15.5) % Plt Count (150-450) k/uL MPV Neutrophils % % Lymphocytes % % Monocytes % % Eosinophils % % Basophils % % Neutrophils # (1.3-7.7) k/uL Lymphocytes # (1.0-4.8) k/uL Monocytes # (0-1.0) k/uL Eosinophils # (0-0.7) k/uL Basophils # (0-0.2) k/uL PT (9.0-12.0) sec INR (<1.2) APTT (22.0-30.0) sec Sodium 135 L (137-145) mmol/L Potassium 4.1 (3.5-5.1) mmol/L Chloride 101 (98-107) mmol/L Carbon Dioxide 24 (22-30) mmol/L Anion Gap 10 mmol/L BUN 51 H (9-20) mg/dL Creatinine 1.55 H (0.66-1.25) mg/dL Est GFR (CKD-EPI)AfAm 47 (>60 ml/min/1.73 sqM) Est GFR (CKD-EPI)NonAf 41 (>60 ml/min/1.73 sqM) Glucose 119 H (74-99) mg/dL Plasma Lactic Acid Ren 0.9 (0.7-2.0) mmol/L Calcium 11.3 H (8.4-10.2) mg/dL Magnesium 1.5 L (1.6-2.3) mg/dL Total Bilirubin 0.7 (0.2-1.3) mg/dL AST 19 (17-59) U/L ALT 18 (4-49) U/L Alkaline Phosphatase 58 (38-126) U/L Troponin I 0.234 H* (0.000-0.034) ng/mL NT-Pro-B Natriuret Pep pg/mL Total Protein 6.3 (6.3-8.2) g/dL Albumin 3.4 L (3.5-5.0) g/dL Urine Color Urine Appearance (Clear) Urine pH (5.0-8.0) Ur Specific [place] (1.001-1.035) Urine Protein (Negative) Urine Glucose (UA) (Negative) Urine Ketones (Negative) Urine Blood (Negative) Urine Nitrite (Negative) Urine Bilirubin (Negative) Urine Urobilinogen (<2.0) mg/dL Ur Leukocyte Esterase (Negative) Urine RBC (0-5) /hpf Urine WBC (0-5) /hpf Urine Mucus (None) /hpf Coronavirus (PCR) (Not Detectd) 02/15/21 02/15/21 Range/Units 22:00 22:00 WBC (3.8-10.6) k/uL RBC (4.30-5.90) m/uL Hgb (13.0-17.5) gm/dL Hct (39.0-53.0) % MCV (80.0-100.0) fL MCH (25.0-35.0) pg MCHC (31.0-37.0) g/dL RDW (11.5-15.5) % Plt Count (150-450) k/uL MPV Neutrophils % % Lymphocytes % % Monocytes % % Eosinophils % % Basophils % % Neutrophils # (1.3-7.7) k/uL Lymphocytes # (1.0-4.8) k/uL Monocytes # (0-1.0) k/uL Eosinophils # (0-0.7) k/uL Basophils # (0-0.2) k/uL PT (9.0-12.0) sec INR (<1.2) APTT (22.0-30.0) sec Sodium (137-145) mmol/L Potassium (3.5-5.1) mmol/L Chloride (98-107) mmol/L Carbon Dioxide (22-30) mmol/L Anion Gap mmol/L BUN (9-20) mg/dL Creatinine (0.66-1.25) mg/dL Est GFR (CKD-EPI)AfAm (>60 ml/min/1.73 sqM) Est GFR (CKD-EPI)NonAf (>60 ml/min/1.73 sqM) Glucose (74-99) mg/dL Plasma Lactic Acid Ren (0.7-2.0) mmol/L Calcium (8.4-10.2) mg/dL Magnesium (1.6-2.3) mg/dL Total Bilirubin (0.2-1.3) mg/dL AST (17-59) U/L ALT (4-49) U/L Alkaline Phosphatase (38-126) U/L Troponin I (0.000-0.034) ng/mL NT-Pro-B Natriuret Pep 5400 pg/mL Total Protein (6.3-8.2) g/dL Albumin (3.5-5.0) g/dL Urine Color Urine Appearance (Clear) Urine pH (5.0-8.0) Ur Specific [place] (1.001-1.035) Urine Protein (Negative) Urine Glucose (UA) (Negative) Urine Ketones (Negative) Urine Blood (Negative) Urine Nitrite (Negative) Urine Bilirubin (Negative) Urine Urobilinogen (<2.0) mg/dL Ur Leukocyte Esterase (Negative) Urine RBC (0-5) /hpf Urine WBC (0-5) /hpf Urine Mucus (None) /hpf Coronavirus (PCR) Not Detected (Not Detectd) Disposition Clinical Impression: Generalized weakness, Acute kidney injury, Elevated troponin I level Disposition: ADMITTED IP TO THIS [facility] Condition: Fair Is patient prescribed a controlled substance at d/c from ED?: No Referrals: Jose Thompson MD [Primary Care Provider] - 1-2 days
--- NOTE | 2021-02-15 22:00 | XR ---
EXAMINATION TYPE: XR chest 2V DATE OF EXAM: 02/15/2021 COMPARISON: 03/04/2020 HISTORY: Weakness TECHNIQUE: 2 views FINDINGS: There is no heart failure nor confluent pneumonic infiltrate. Costophrenic angles are clear . Thoracic aorta is atheromatous. There are chest leads. IMPRESSION: No active cardiopulmonary disease. Atheromatous aorta. No change.
[2021-02-15] MEDS ORDERED: SODIUM CHLORIDE 0.9% 500 ML 500 ML IV STA (22:06)
[2021-02-15 22:35] LABS: Basophils % (A) 0 %; Eosinophils # (A) 0.1 k/uL (0-0.7); Eosinophils % (A) 1 %; HCT 31.1 % (39.0-53.0); HGB 10.2 gm/dL (13.0-17.5); Lymphocytes # (A) 0.4 k/uL (1.0-4.8); Lymphocytes % (A) 5 %; MCH 31.6 pg (25.0-35.0); MCHC 32.9 g/dL (31.0-37.0); MCV 96.1 fL (80.0-100.0); Mean Platelet Volume 7.6; Monocytes # (A) 0.6 k/uL (0-1.0); Monocytes % (A) 7 %; Neutrophils # (A) 6.8 k/uL (1.3-7.7); Neutrophils % (A) 83 %; Platelet Count 351 k/uL (150-450); RBC 3.23 m/uL (4.30-5.90); RDW 13.5 % (11.5-15.5); WBC 8.2 k/uL (3.8-10.6)
[2021-02-15 22:45] LABS: Albumin 3.4 g/dL (3.5-5.0); Calcium 11.3 mg/dL (8.4-10.2); Magnesium 1.5 mg/dL (1.6-2.3); Potassium 4.1 mmol/L (3.5-5.1); Total Bilirubin 0.7 mg/dL (0.2-1.3); Total Protein 6.3 g/dL (6.3-8.2)
[2021-02-15 23:06] LABS: Prothrombin Time 10.7 sec (9.0-12.0)
[2021-02-15 23:26] LABS: Partial Thromboplastin Time 20.3 sec (22.0-30.0)
[2021-02-16 00:25] LABS: Appearance,Urine Clear (Clear); Bilirubin,Urine Negative (Negative); Blood,Urine Moderate (Negative); Color,Urine Yellow; Glucose,Urine (UA) Negative (Negative); Ketones,Urine Negative (Negative); Leukocyte Esterase,Urine Negative (Negative); Mucus,Urine Rare /hpf; Nitrite,Urine Negative (Negative); Protein,Urine Negative (Negative); RBC,Urine 82 /hpf (0-5); Specific Gravity,Urine 1.018 (1.001-1.035); Urobilinogen,Urine <2.0 mg/dL (<2.0); WBC,Urine 1 /hpf (0-5)
[2021-02-16] MEDS ORDERED: NALOXONE 0.4 MG/ML 1 ML VIAL IV PRN (00:33)
[2021-02-16] MEDS ORDERED: ACETAMINOPHEN TAB 325 MG TAB PO PRN (00:33)
[2021-02-16] MEDS ORDERED: NITROGLYCERIN SL TABS 0.4 MG TAB SUBLINGUAL PRN (00:34)
--- NOTE | 2021-02-16 01:21 | P.HPIM ---
History of Present Illness H&P Date: 02/16/21 Chief Complaint: Gen weakness 85 year old man with history of SVT status post ablation, CAD status post drug- eluting stents earlier this year to the LAD, hypertension/hyperlipidemia, moderate aortic stenosis, history of bladder cancer presenting for generalized weakness. Patient's history is provided mostly by the daughter who is at bedside. Patient had his Covid booster shot proximally 2 weeks ago and 2 days after the shot started to feel generally weak and rundown. He has not had much appetite, and consequently his by mouth intake is diminished. He saw his primar care physician and had labs drawn, which showed that he seemed to be dehydrated, and was encouraged to increase fluid intake. However, due to ongoing issues of loss of appetite and generalized weakness, patient has not been able to keep up. Patient denies fevers, chills, nausea, vomiting, chest pain, palpitations, syncope, presyncope, abdominal pain, diarrhea, constipation, dysuria, dyschezia, numbness/weakness of extremities. He only reports generalized weakness. In the emergency room, patient is afebrile and 117/75, heart rate 93, 96% on room air. CBC shows hemoglobin of 10.2, down from 13.1 in February. Chemistries demonstrated elevated creatinine to 1.55 from baseline of 0.9. Calcium level is elevated at 11.3, corrected is closer to 11.7. Troponin was elevated at 0.234, BNP was elevated at 5400. Urinalysis demonstrates elevated red blood cells with moderate blood. Covid was negative. EKG demonstrates sinus tachycardia with PACs, no ischemic changes, poor R-wave progression in precordial leads consistent with old anterior infarct. Chest x-ray did not demonstrate heart failure changes or new opacities/infiltrates. Review of Systems All Systems reviewed and pertinent positives and negatives noted in HPI, all other symptoms are negative Past Medical History Past Medical History: Coronary Artery Disease (CAD), Cancer, Chest Pain / Angina, Hearing Disorder / Deafness, Hypertension, Osteoarthritis (OA), Prostate Disorder, Supraventricular Tachycardia (SVT) Additional Past Medical History / Comment(s): SHORTNESS OF BREATH WITH EXERTION with abnormal stress test, SKIN CANCER, bladder cancer, enlarged prostate History of Any Multi-Drug Resistant Organisms: None Reported Past Surgical History: Heart Catheterization With Stent Additional Past Surgical History / Comment(s): growth in bladder removed 2007 Past Anesthesia/Blood Transfusion Reactions: No Reported Reaction Past Psychological History: Depression Smoking Status: Never smoker Past Alcohol Use History: None Reported Past Drug Use History: None Reported - Past Family History Father Family Medical History: Myocardial Infarction ([place]) Additional Family Medical History / Comment(s): Father of myocardial infarction at 74 years old Mother Family Medical History: Hypertension Medications and Allergies Home Medications Medication Instructions Recorded Confirmed Type Enalapril [Vasotec] 5 mg PO DAILY 04/24/18 02/15/21 History Triamterene-Hctz 37.5-25Mg 1 cap PO DAILY 04/24/18 02/15/21 History [Dyazide 37.5-25 Capsule] Aspirin 81 mg PO DAILY #30 chew 04/27/18 02/15/21 Rx Tamsulosin [Flomax] 0.4 mg PO DAILY 03/04/20 02/15/21 History Ascorbic Acid [Vitamin C] 1,000 mg PO DAILY 02/15/21 02/15/21 History Calcium Carbonate [Calcium] 600 mg PO DAILY 02/15/21 02/15/21 History Cholecalciferol [Vitamin D3 (25 25 mcg PO DAILY 02/15/21 02/15/21 History Mcg = 1000 Iu)] Diltiazem HCl [Diltiazem HCl 24Hr 180 mg PO DAILY 02/15/21 02/15/21 History ER] Isosorbide Mononitrate ER [Imdur] 60 mg PO DAILY 02/15/21 02/15/21 History Metoprolol Tartrate [Lopressor] 25 mg PO DAILY 02/15/21 02/15/21 History Naproxen Sodium [Aleve] 220 mg PO DAILY 02/15/21 02/15/21 History Allergies Allergy/AdvReac Type Severity Reaction Status Date / Time Penicillins Allergy Rash/Hives Verified 02/15/21 23:07 Sulfa (Sulfonamide Allergy Rash/Hives Verified 02/15/21 23:07 Antibiotics) Physical Exam Osteopathic Statement: *. No significant issues noted on an osteopathic structural exam other than those noted in the History and Physical/Consult. Vitals: Vital Signs Temp Pulse Resp BP Pulse Ox 02/15/21 22:23 93 18 117/75 96 02/15/21 21:04 98.4 F 71 20 131/55 96 Intake and Output 02/15/21 02/15/21 02/16/21 14:59 22:59 06:59 Other: Weight 75.75 kg Gen: awake, alert HEENT: normocephalic, atraumatic, good hearing acuity, moist mucous membranes Resp: good air exchange, breathing comfortably with no accessory muscle use, clear to auscultation bilaterally CVS: good distal perfusion x 4, tachycardic, regular rhythm, crescendo decrescendo systolic murmur GI: soft, NTTP, ND : no SPT, no CVAT, sommer catheter not present MSK: no pitting edema, no clubbing Neuro: non-focal, moving all extremities Psych: cooperative, euthymic mood Results CBC & Chem 7: 02/15/21 22:00 02/15/21 22:00 Labs: Abnormal Lab Results - Last 24 Hours (Table) 02/15/21 02/15/21 02/15/21 Range/Units 22:00 22:00 22:00 RBC 3.23 L (4.30-5.90) m/uL Hgb 10.2 L (13.0-17.5) gm/dL Hct 31.1 L (39.0-53.0) % Lymphocytes # 0.4 L (1.0-4.8) k/uL APTT 20.3 L (22.0-30.0) sec Sodium (137-145) mmol/L BUN (9-20) mg/dL Creatinine (0.66-1.25) mg/dL Glucose (74-99) mg/dL Calcium (8.4-10.2) mg/dL Magnesium (1.6-2.3) mg/dL Troponin I (0.000-0.034) ng/mL Albumin (3.5-5.0) g/dL Urine Blood Moderate H (Negative) Urine RBC 82 H (0-5) /hpf Urine Mucus Rare H (None) /hpf 02/15/21 02/15/21 Range/Units 22:00 22:00 RBC (4.30-5.90) m/uL Hgb (13.0-17.5) gm/dL Hct (39.0-53.0) % Lymphocytes # (1.0-4.8) k/uL APTT (22.0-30.0) sec Sodium 135 L (137-145) mmol/L BUN 51 H (9-20) mg/dL Creatinine 1.55 H (0.66-1.25) mg/dL Glucose 119 H (74-99) mg/dL Calcium 11.3 H (8.4-10.2) mg/dL Magnesium 1.5 L (1.6-2.3) mg/dL Troponin I 0.234 H* (0.000-0.034) ng/mL Albumin 3.4 L (3.5-5.0) g/dL Urine Blood (Negative) Urine RBC (0-5) /hpf Urine Mucus (None) /hpf Assessment and Plan Assessment: Generalized weakness Dehydration Acute kidney injury -Admit to observation, telemetry -Patient was given IV fluids in the emergency room, repeat labs -Continue IVF at 125cc/hr for next 24 hours, stop if dyspneic or hypoxic -PT/OT -Orthostatics twice a day -If no improvement with weakness and creatinine with IV fluids, we'll obtain urine lytes, renal ultrasound -Hold home lisinopril, Dyazide Hypercalcemia Anemia -SPEP/UPEP, free light chains -Iron panel, B12/folate -Stool occult blood -Continue to monitor CAD Elevated troponin likely type II demand ischemia from dehydration History of SVT status post ablation Moderate aortic stenosis -Repeat echocardiogram -Consult cardiology -Continue home metoprolol and diltiazem -Continue home Imdur -Continue aspirin -Plavix is not listed on patient's home medication list, but it's been less than a year since his stents were placed, I will resume Plavix here HTN Hyperlipidemia History of bladder cancer -Home medications were reviewed and reconciled, changes noted above Patient is a no code DVT prophylaxis with heparin 3 times a day
[2021-02-16] MEDS: LACTATED RINGERS 1,000 ML IV SCH ×4 (05:15→23:16)
[2021-02-16] MEDS: HEPARIN SODIUM,PORCINE/PF 5,000 UNIT/0.5 ML SYRINGE SQ SCH ×3 (08:14→23:14)
[2021-02-16] MEDS: ISOSORBIDE MONONITRATE ER 60 MG TAB.ER.24H PO SCH (08:15)
[2021-02-16] MEDS: CLOPIDOGREL 75 MG TAB PO SCH (08:15)
[2021-02-16] MEDS: ASCORBIC ACID 500 MG TAB PO SCH (08:15)
[2021-02-16] MEDS: CHOLECALCIFEROL 25 MCG (1000 IU) TABLET PO SCH (08:15)
[2021-02-16] MEDS: METOPROLOL TARTRATE 25 MG TAB PO SCH (08:15)
[2021-02-16] MEDS: TAMSULOSIN 0.4 MG CAP.ER.24H PO SCH (08:15)
[2021-02-16] MEDS: DILTIAZEM CD 180 MG CAP.ER.24H PO SCH (08:16)
[2021-02-16] MEDS: NAPROXEN 250 MG TAB PO SCH (08:16)
[2021-02-16] MEDS: CALCIUM CARBONATE 500 MG CHEWABLE PO SCH (08:16)
[2021-02-16] MEDS ORDERED: ASPIRIN 81 MG PO SCH (09:00)
[2021-02-16] MEDS ORDERED: lisinopriL 5 MG TAB PO SCH (09:00)
[2021-02-16] MEDS ORDERED: TRIAMTERENE-HCTZ 37.5-25MG 1 EACH CAP PO SCH (09:00)
[2021-02-16 09:29] VITALS: BMI 26.9
--- NOTE | 2021-02-16 09:42 | P.CRDCN ---
History of Present Illness Consult date: 02/16/21 History of present illness: This is a 85-year-old gentleman with history of coronary artery disease with this drug-eluting stent placement to the LAD and also diagonal branch done in February 2020. Patient also has mild to moderate aortic stenosis. About 2 weeks ago patient had a booster dose for coronary. Since then patient has lost his appetite and felt weak. Blood test drawn as an outpatient showed evidence of dehydration. Outpatient management was unsuccessful and patient was brought in because of continued weakness, his lab values showed a hemoglobin of 10.2. His a BUN is 51 with a creatinine of 1.55. His troponin is mildly elevated at 0.234 but the rest of the values are in the same range. His BNP is elevated. Patient doesn't seem to be any acute distress or short of breath. A chest x-ray did not show any significant findings of CHF. Patient is being gently hydrated. We will get an echocardiogram to assess LV function. Further examination depend upon the critical course. Review of Systems As per the chart Past Medical History Past Medical History: Coronary Artery Disease (CAD), Cancer, Chest Pain / Angina, Hearing Disorder / Deafness, Hypertension, Osteoarthritis (OA), Prostate Disorder, Supraventricular Tachycardia (SVT) Additional Past Medical History / Comment(s): SHORTNESS OF BREATH WITH EXERTION with abnormal stress test, SKIN CANCER, bladder cancer, enlarged prostate History of Any Multi-Drug Resistant Organisms: None Reported Past Surgical History: Heart Catheterization With Stent Additional Past Surgical History / Comment(s): growth in bladder removed 2007 Past Anesthesia/Blood Transfusion Reactions: No Reported Reaction Date of Last Stent Placement:: 2020 Past Psychological History: Depression Smoking Status: Never smoker Past Alcohol Use History: None Reported Past Drug Use History: None Reported - Past Family History Father Family Medical History: Myocardial Infarction ([place]) Additional Family Medical History / Comment(s): Father of myocardial infarction at 74 years old Mother Family Medical History: Hypertension Medications and Allergies Home Medications Medication Instructions Recorded Confirmed Type Enalapril [Vasotec] 5 mg PO DAILY 04/24/18 02/15/21 History Triamterene-Hctz 37.5-25Mg 1 cap PO DAILY 04/24/18 02/15/21 History [Dyazide 37.5-25 Capsule] Aspirin 81 mg PO DAILY #30 chew 04/27/18 02/15/21 Rx Tamsulosin [Flomax] 0.4 mg PO DAILY 03/04/20 02/15/21 History Ascorbic Acid [Vitamin C] 1,000 mg PO DAILY 02/15/21 02/15/21 History Calcium Carbonate [Calcium] 600 mg PO DAILY 02/15/21 02/15/21 History Cholecalciferol [Vitamin D3 (25 25 mcg PO DAILY 02/15/21 02/15/21 History Mcg = 1000 Iu)] Diltiazem HCl [Diltiazem HCl 24Hr 180 mg PO DAILY 02/15/21 02/15/21 History ER] Isosorbide Mononitrate ER [Imdur] 60 mg PO DAILY 02/15/21 02/15/21 History Metoprolol Tartrate [Lopressor] 25 mg PO DAILY 02/15/21 02/15/21 History Naproxen Sodium [Aleve] 220 mg PO DAILY 02/15/21 02/15/21 History Allergies Allergy/AdvReac Type Severity Reaction Status Date / Time Penicillins Allergy Rash/Hives Verified 02/15/21 23:07 Sulfa (Sulfonamide Allergy Rash/Hives Verified 02/15/21 23:07 Antibiotics) Physical Exam Vitals: Vital Signs Temp Pulse Pulse Pulse Resp BP BP 02/16/21 08:00 98.3 F 102 H 16 135/78 02/16/21 03:47 98.4 F 71 16 139/81 02/16/21 03:08 97.7 F 102 H 18 137/92 02/16/21 02:01 97.7 F 102 H 18 131/105 02/15/21 22:23 93 18 117/75 02/15/21 21:04 98.4 F 71 20 131/55 Pulse Ox 02/16/21 08:00 96 02/16/21 03:47 95 02/16/21 03:08 96 02/16/21 02:01 95 02/15/21 22:23 96 02/15/21 21:04 96 Intake and Output 02/15/21 02/16/21 02/16/21 22:59 06:59 14:59 Output Total 1000 Balance -1000 Output: Urine 500 Straight 500 Post Void Residual 500 Other: Voiding Method Urinal # Voids 0 Weight 75.75 kg 75.75 kg 75.75 kg GENERAL EXAM: Patient is alert and oriented and doesn't appear to be in any acute distress HEENT: Normocephalic. Normal reaction of pupils, equal size, normal range of extraocular motion. No erythema or exudates in the throat. NECK: No masses, no nuchal rigidity. CHEST: No chest wall deformity. LUNGS: Equal air entry with no crackles or wheeze. HEART: S1 and S2 normal with no audible mumurs or gallops. Regular rhythm, femorals equal on both sides. Irregular heart sounds. ABDOMEN: No hepatosplenomegaly, normal bowel sounds, no guarding or rigidity. SKIN: No rashes CENTRAL NERVOUS SYSTEM: No focal deficits. EXTREMITIES: No cyanosis, clubbing or edema. Results 02/15/21 22:00 02/15/21 22:00 Cardiac Enzymes 02/15/21 02/15/21 02/16/21 Range/Units 22:00 22:00 00:52 AST 19 (17-59) U/L Troponin I 0.234 H* 0.246 H* (0.000-0.034) ng/mL 02/16/21 Range/Units 03:38 AST (17-59) U/L Troponin I 0.249 H* (0.000-0.034) ng/mL Coagulation 02/15/21 Range/Units 22:00 PT 10.7 (9.0-12.0) sec APTT 20.3 L (22.0-30.0) sec CBC 02/15/21 Range/Units 22:00 WBC 8.2 (3.8-10.6) k/uL RBC 3.23 L (4.30-5.90) m/uL Hgb 10.2 L (13.0-17.5) gm/dL Hct 31.1 L (39.0-53.0) % Plt Count 351 (150-450) k/uL Comprehensive Metabolic Panel 02/15/21 Range/Units 22:00 Sodium 135 L (137-145) mmol/L Potassium 4.1 (3.5-5.1) mmol/L Chloride 101 (98-107) mmol/L Carbon Dioxide 24 (22-30) mmol/L BUN 51 H (9-20) mg/dL Creatinine 1.55 H (0.66-1.25) mg/dL Glucose 119 H (74-99) mg/dL Calcium 11.3 H (8.4-10.2) mg/dL AST 19 (17-59) U/L ALT 18 (4-49) U/L Alkaline Phosphatase 58 (38-126) U/L Total Protein 6.3 (6.3-8.2) g/dL Albumin 3.4 L (3.5-5.0) g/dL Current Medications Generic Name Dose Route Start Last Admin Trade Name Freq PRN Reason Stop Dose Admin Acetaminophen 650 mg 02/16/21 00:33 Acetaminophen Tab 325 Mg Tab PO Q6HR PRN Mild Pain or Fever > 100.5 Ascorbic Acid 1,000 mg 02/16/21 09:00 02/16/21 08:15 Ascorbic Acid 500 Mg Tab PO 1,000 mg DAILY BHARAT Administration Aspirin 81 mg 02/17/21 09:00 Aspirin 81 Mg PO DAILY BHARAT Calcium Carbonate/Glycine 500 mg 02/16/21 09:00 02/16/21 08:16 Calcium Carbonate 500 Mg Chewable PO 500 mg DAILY BHARAT Administration Cholecalciferol 25 mcg 02/16/21 09:00 02/16/21 08:15 Cholecalciferol 25 Mcg (1000 Iu) Tablet PO 25 mcg DAILY BHARAT Administration Clopidogrel Bisulfate 75 mg 02/16/21 09:00 02/16/21 08:15 Clopidogrel 75 Mg Tab PO 75 mg DAILY BHARAT Administration Diltiazem HCl 180 mg 02/16/21 09:00 02/16/21 08:16 Diltiazem Cd 180 Mg Cap.Er.24h PO 180 mg DAILY BHARAT Administration Heparin Sodium (Porcine) 5,000 unit 02/16/21 08:00 02/16/21 08:14 Heparin Sodium,Porcine/Pf 5,000 Unit/0.5 Ml Syringe SQ 5,000 unit Q8HR BHARAT Administration Lactated Ringer's 1,000 mls @ 125 mls/hr 02/16/21 01:30 02/16/21 05:15 Lactated Ringers IV 125 mls/hr .Q8H BHARAT Administration Isosorbide Mononitrate 60 mg 02/16/21 09:00 02/16/21 08:15 Isosorbide Mononitrate Er 60 Mg Tab.Er.24h PO 60 mg DAILY BHARAT Administration Metoprolol Tartrate 25 mg 02/16/21 09:00 02/16/21 08:15 Metoprolol Tartrate 25 Mg Tab PO 25 mg DAILY BHARAT Administration Naloxone HCl 0.2 mg 02/16/21 00:33 Naloxone 0.4 Mg/Ml 1 Ml Vial IV Q2M PRN Opioid Reversal Naproxen 250 mg 02/16/21 09:00 02/16/21 08:16 Naproxen 250 Mg Tab PO Not Given DAILY BHARAT Nitroglycerin 0.4 mg 02/16/21 00:34 Nitroglycerin Sl Tabs 0.4 Mg Tab SUBLINGUAL Q5M PRN Chest Pain Tamsulosin HCl 0.4 mg 02/16/21 09:00 02/16/21 08:15 Tamsulosin 0.4 Mg Cap.Er.24h PO 0.4 mg DAILY BHARAT Administration Intake and Output 02/15/21 02/16/21 02/16/21 22:59 06:59 14:59 Output Total 1000 Balance -1000 Output: Urine 500 Straight 500 Post Void Residual 500 Other: Voiding Method Urinal # Voids 0 Weight 75.75 kg 75.75 kg 75.75 kg Patient Weight 02/17/21 06:59 Weight 75.75 kg 02/15/21 22:00 02/15/21 22:00 EKG Interpretations (text) Sinus rhythm with frequent APCs Assessment and Plan (1) Dehydration Current Visit: Yes Status: Acute Code(s): E86.0 - DEHYDRATION SNOMED Code(s): 48571917 (2) CAD (coronary artery disease) Current Visit: Yes Status: Acute Code(s): I25.10 - ATHSCL HEART DISEASE OF [place] CORONARY ARTERY W/O ANG PCTRS SNOMED Code(s): 68519179 (3) Elevated troponin I level Current Visit: Yes Status: Acute Code(s): R77.8 - OTHER SPECIFIED ABNORMALI TIES OF PLASMA PROTEINS SNOMED Code(s): 355648206 (4) Generalized weakness Current Visit: Yes Status: Acute Code(s): R53.1 - WEAKNESS SNOMED Code(s): 01414181 (5) Aortic stenosis Current Visit: Yes Status: Acute Code(s): I35.0 - NONRHEUMATIC AORTIC (VA LVE) STENOSIS SNOMED Code(s): 59207734 Plan: Continue with gentle hydration. Echocardiogram to assess LV function. Continue the rest of the home medication. Further comminution depend upon the clinical course
[2021-02-16 10:00] LABS: % Iron Saturation 11.78 (15.00-50.00); Folate, Serum 15.4 ng/mL (4.40-31.00)
[2021-02-16 10:01] LABS: Protein, Total 5.7 g/dL (6.2-8.2)
[2021-02-16 10:25] LABS: Basophils % (A) 0 %; Eosinophils # (A) 0.1 k/uL (0-0.7); Eosinophils % (A) 1 %; HGB 9.3 gm/dL (13.0-17.5); Lymphocytes # (A) 0.4 k/uL (1.0-4.8); Lymphocytes % (A) 5 %; MCH 32.7 pg (25.0-35.0); MCHC 33.4 g/dL (31.0-37.0); MCV 97.9 fL (80.0-100.0); Mean Platelet Volume 8.6; Monocytes # (A) 0.6 k/uL (0-1.0); Monocytes % (A) 8 %; Neutrophils # (A) 6.4 k/uL (1.3-7.7); Neutrophils % (A) 84 %; Platelet Count 294 k/uL (150-450); RBC 2.86 m/uL (4.30-5.90); RDW 13.6 % (11.5-15.5); WBC 7.6 k/uL (3.8-10.6)
[2021-02-16] MEDS: MAGNESIUM SULFATE-D5W PMX 1 GM in DEXTROSE/WATER 1 100ML.BAG IVPB SCH ×4 (11:01→16:47)
[2021-02-16 11:24] LABS: Albumin 2.7 g/dL (3.5-5.0); Bilirubin, Delta 0.1 mg/dL (0.0-0.2); Bilirubin,Unconjugated 0.5 mg/dL (0.0-1.1); Calcium 10.5 mg/dL (8.4-10.2); Magnesium 1.4 mg/dL (1.6-2.3); Total Bilirubin 0.6 mg/dL (0.2-1.3); Total Protein 5.2 g/dL (6.3-8.2)
[2021-02-16 11:55] LABS: Glucose,Whole Blood 152 mg/dL (75-99)
--- NOTE | 2021-02-16 12:36 | P.PN ---
Progress Note - Text Progress Note Date: 02/16/21 Patient seen and examined, he is likely dehydrated. Continue to hydrate with IV fluids. Awaiting echo and cardio evaluation.
[2021-02-16 17:11] LABS: Glucose,Whole Blood 147 mg/dL (75-99)
[2021-02-16 20:33] LABS: Glucose,Whole Blood 162 mg/dL (75-99)
[2021-02-17] MEDS: LACTATED RINGERS 1,000 ML IV SCH ×2 (06:11→18:29)
[2021-02-17 06:18] LABS: Glucose,Whole Blood 118 mg/dL (75-99)
[2021-02-17 07:25] LABS: Basophils % (A) 0 %; Eosinophils # (A) 0.1 k/uL (0-0.7); Eosinophils % (A) 1 %; HCT 28.2 % (39.0-53.0); HGB 9.3 gm/dL (13.0-17.5); Lymphocytes # (A) 0.4 k/uL (1.0-4.8); Lymphocytes % (A) 5 %; MCH 32.3 pg (25.0-35.0); MCHC 33.1 g/dL (31.0-37.0); MCV 97.7 fL (80.0-100.0); Mean Platelet Volume 7.6; Monocytes # (A) 0.5 k/uL (0-1.0); Monocytes % (A) 7 %; Neutrophils # (A) 5.9 k/uL (1.3-7.7); Neutrophils % (A) 83 %; Platelet Count 299 k/uL (150-450); RBC 2.88 m/uL (4.30-5.90); RDW 13.5 % (11.5-15.5); WBC 7.1 k/uL (3.8-10.6)
[2021-02-17 07:27] LABS: Ionized Calcium 5.9 mg/dL (4.5-5.3)
[2021-02-17 07:40] LABS: African American GFR (CKD) 63 (>60 ml/min/1.73 sqM); Anion Gap 5 mmol/L; Blood Urea Nitrogen 32 mg/dL (9-20); Carbon Dioxide 25 mmol/L (22-30); Chloride 104 mmol/L (98-107); Glucose 112 mg/dL (74-99); Magnesium 1.8 mg/dL (1.6-2.3); Non-African American GFR(CKD) 54 (>60 ml/min/1.73 sqM); Potassium 3.7 mmol/L (3.5-5.1); Sodium 134 mmol/L (137-145)
[2021-02-17] MEDS: HEPARIN SODIUM,PORCINE/PF 5,000 UNIT/0.5 ML SYRINGE SQ SCH ×3 (08:36→23:31)
[2021-02-17] MEDS: NAPROXEN 250 MG TAB PO SCH (08:37)
[2021-02-17] MEDS: CALCIUM CARBONATE 500 MG CHEWABLE PO SCH (08:37)
[2021-02-17] MEDS: ASCORBIC ACID 500 MG TAB PO SCH (08:37)
[2021-02-17] MEDS: ASPIRIN 81 MG PO SCH (08:37)
[2021-02-17] MEDS: TAMSULOSIN 0.4 MG CAP.ER.24H PO SCH (08:37)
[2021-02-17] MEDS: DILTIAZEM CD 180 MG CAP.ER.24H PO SCH (08:37)
[2021-02-17] MEDS: CLOPIDOGREL 75 MG TAB PO SCH (08:37)
[2021-02-17] MEDS: ISOSORBIDE MONONITRATE ER 60 MG TAB.ER.24H PO SCH (08:37)
[2021-02-17] MEDS: METOPROLOL TARTRATE 25 MG TAB PO SCH (08:37)
[2021-02-17] MEDS: CHOLECALCIFEROL 25 MCG (1000 IU) TABLET PO SCH (08:38)
--- NOTE | 2021-02-17 08:50 | P.PN ---
Subjective Progress Note Date: 02/17/21 Principal diagnosis: Dehydration The patient is an 85-year-old gentleman with coronary artery disease and aortic stenosis who was admitted to the hospital with dehydration secondary to decreased oral intake. The patient was seen this morning. He states that he is feeling better. He was eating his breakfast. He reports no symptoms of chest pain or chest discomfort and no shortness of breath or dizziness or lightheadedness. Hemodynamically he remains stable. An echo is ordered and is in process to be done. From the cardiac standpoint overview, the patient potentially can be discharged in the next 12-24 hours. We will follow-up on the echo Objective - Vital Signs Vital signs: Vital Signs Temp 97.8 F 02/17/21 03:42 Pulse 70 02/17/21 03:42 Resp 18 02/17/21 03:42 BP 141/75 02/17/21 03:42 Pulse Ox 97 02/17/21 03:42 Intake & Output 02/16/21 02/17/21 02/17/21 18:59 06:59 18:59 Intake Total 1895 Output Total 250 Balance 1645 Weight 75.75 kg Intake: IV 1175 Lactated Ringers 1,000 ml 875 @ 125 mls/hr IV .Q8H BHARAT Rx#:[id number] Magnesium Sulfate-D5w Pmx 300 1 gm In Dextrose/Water 1 100ml.bag @ 100 mls/hr IVPB Q1H BHARAT Rx#: [id number] Oral 720 Output: Urine 250 Other: Voiding Method Toilet # Voids 2 - Constitutional General appearance: Present: no acute distress - Respiratory Respiratory: bilateral: CTA - Cardiovascular Rhythm: regular Heart sounds: normal: S1, S2 Abnormal Heart Sounds: Present: systolic murmur - Labs CBC & Chem 7: 02/17/21 06:54 02/17/21 06:54 Labs: Abnormal Lab Results - Last 24 Hours (Table) 02/16/21 02/16/21 02/16/21 Range/Units 03:38 03:38 10:16 RBC 2.86 L (4.30-5.90) m/uL Hgb 9.3 L (13.0-17.5) gm/dL Hct 28.0 L (39.0-53.0) % Lymphocytes # 0.4 L (1.0-4.8) k/uL Sodium (137-145) mmol/L BUN (9-20) mg/dL Creatinine (0.66-1.25) mg/dL Glucose (74-99) mg/dL POC Glucose (mg/dL) (75-99) mg/dL Calcium (8.4-10.2) mg/dL Ionized Calcium Dor[place] (4.5-5.3) mg/dL Magnesium (1.6-2.3) mg/dL Iron 31 L (65-175) ug/dL % Saturation 11.78 L (15.00-50.00) Transferrin 188.0 L (204.0-354.0) mg/dL Total Protein (6.3-8.2) g/dL Total Protein (PEP) 5.7 L (6.2-8.2) g/dL Albumin (3.5-5.0) g/dL 02/16/21 02/16/21 02/16/21 Range/Units 10:16 11:51 17:03 RBC (4.30-5.90) m/uL Hgb (13.0-17.5) gm/dL Hct (39.0-53.0) % Lymphocytes # (1.0-4.8) k/uL Sodium 136 L (137-145) mmol/L BUN 44 H (9-20) mg/dL Creatinine 1.35 H (0.66-1.25) mg/dL Glucose 134 H (74-99) mg/dL POC Glucose (mg/dL) 152 H 147 H (75-99) mg/dL Calcium 10.5 H (8.4-10.2) mg/dL Ionized Calcium [place] (4.5-5.3) mg/dL Magnesium 1.4 L (1.6-2.3) mg/dL Iron (65-175) ug/dL % Saturation (15.00-50.00) Transferrin (204.0-354.0) mg/dL Total Protein 5.2 L (6.3-8.2) g/dL Total Protein (PEP) (6.2-8.2) g/dL Albumin 2.7 L (3.5-5.0) g/dL 02/16/21 02/17/21 02/17/21 Range/Units 20:18 05:52 06:54 RBC (4.30-5.90) m/uL Hgb (13.0-17.5) gm/dL Hct (39.0-53.0) % Lymphocytes # (1.0-4.8) k/uL Sodium 134 L (137-145) mmol/L BUN 32 H (9-20) mg/dL Creatinine (0.66-1.25) mg/dL Glucose 112 H (74-99) mg/dL POC Glucose (mg/dL) 162 H 118 H (75-99) mg/dL Calcium (8.4-10.2) mg/dL Ionized Calcium Doron 5.9 H (4.5-5.3) mg/dL Magnesium (1.6-2.3) mg/dL Iron (65-175) ug/dL % Saturation (15.00-50.00) Transferrin (204.0-354.0) mg/dL Total Protein (6.3-8.2) g/dL Total Protein (PEP) (6.2-8.2) g/dL Albumin (3.5-5.0) g/dL 02/17/21 Range/Units 06:54 RBC 2.88 L (4.30-5.90) m/uL Hgb 9.3 L (13.0-17.5) gm/dL Hct 28.2 L (39.0-53.0) % Lymphocytes # 0.4 L (1.0-4.8) k/uL Sodium (137-145) mmol/L BUN (9-20) mg/dL Creatinine (0.66-1.25) mg/dL Glucose (74-99) mg/dL POC Glucose (mg/dL) (75-99) mg/dL Calcium (8.4-10.2) mg/dL Ionized Calcium [place] (4.5-5.3) mg/dL Magnesium (1.6-2.3) mg/dL Iron (65-175) ug/dL % Saturation (15.00-50.00) Transferrin (204.0-354.0) mg/dL Total Protein (6.3-8.2) g/dL Total Protein (PEP) (6.2-8.2) g/dL Albumin (3.5-5.0) g/dL Microbiology - Last 24 Hours (Table) 02/15/21 22:00 Blood Culture - Preliminary Blood No Growth after 24 hours Assessment and Plan Assessment: Assessment #1 dehydration related to decreased oral intake #2 coronary artery disease #3 aortic stenosis #4 multiple comorbid conditions Plan #1 continue the current medical regimen #2 the patient has been feeling better clinically #3 follow-up on the echocardiogram #4 follow-up with the patient
[2021-02-17] MEDS ORDERED: ASPIRIN 325 MG TAB PO SCH (09:00)
--- NOTE | 2021-02-17 11:07 | ECHOF ---
Referral Reason:possible myocarditis MEASUREMENTS -------- HEIGHT: 167.6 cm WEIGHT: 75.7 kg BP: IVSd: 2.2 cm (0.6 - 1.1) LVIDd: 3.5 cm (3.9 - 5.3) LVPWd: 1.7 cm (0.6 - 1.1) IVSs: 2.3 cm LVIDs: 2.3 cm LVPWs: 2.1 cm LAESV Index (A-L): 19.33 ml/m Ao Diam: 3.8 cm (2.0 - 3.7) AV Cusp: 1.2 cm (1.5 - 2.6) LA Diam: 2.9 cm (2.7 - 3.8) MV EXCURSION: 19.089 mm (> 18.000) MV EF SLOPE: 117 mm/s (70 - 150) EPSS: 0.3 cm MV E Stan: 0.75 m/s MV DecT: 222 ms MV A Stan: 0.99 m/s MV E/A Ratio: 0.76 AV maxP.61 mmHg AV meanP.30 mmHg AR PHT: 1036 ms RAP: 5.00 mmHg RVSP: 14.63 mmHg FINDINGS -------- Undetermined rhythm. This was a technically good study. The left ventricular size is normal. There is severe concentric left ventricular hypertrophy. Ove rall left ventricular systolic function is normal with, an EF between 55 - 60 %. Normal LAP Grade 1 Diastolic Dysfunction. The right ventricle is normal in size. The left atrial size is normal. Normal LA size by volume 22+/-6 ml/m2. The right atrial size is normal. Aortic valve is trileaflet and is moderately thickened. Trace amount of aortic regurgitation. Th ere is mild aortic stenosis present. Peak/mean gradient across the Aortic Valve is 11.61mmHg / 7.30 mmHg. The mitral valve is normal. The mitral valve leaflets are mildly thickened. Mild mitral annular c alcification present. Mild mitral regurgitation is present. The tricuspid valve appears structurally normal. Mild tricuspid regurgitation present. Right vent ricular systolic pressure is normal at < 35 mmHg. There is no pulmonic regurgitation present. The aortic root size is normal. IVC Not well visulized. There is no pericardial effusion. CONCLUSIONS -------- 1. The left ventricular size is normal. 2. There is severe concentric left ventricular hypertrophy. 3. Overall left ventricular systolic function is normal with, an EF between 55 - 60 %. 4. Normal LAP Grade 1 Diastolic Dysfunction. 5. Aortic valve is trileaflet and is moderately thickened. 6. Trace amount of aortic regurgitation. 7. There is mild aortic stenosis present. 8. Peak/mean gradient across the Aortic Valve is 11.61mmHg / 7.30mmHg. 9. The mitral valve leaflets are mildly thickened. 10. Mild mitral annular calcification present. 11. Mild mitral regurgitation is present. 12. Mild tricuspid regurgitation present. 13. There is no pericardial effusion. BLADE SHARPENER: Nessa Soni RDCS
[2021-02-17 11:33] LABS: Chol/HDL Ratio 3.03 Ratio; LDL Cholesterol,Calculated 51.3 mg/dL (0.0-131.0); VLDL Calculation 11.54 mg/dL (5.00-40.00)
[2021-02-17 11:38] LABS: Glucose,Whole Blood 118 mg/dL (75-99)
--- NOTE | 2021-02-17 11:48 | P.PN ---
<Ned Gregg - Last Filed: 02/17/21 12:29> Subjective Progress Note Date: 02/17/21 Hospital course: Patient is a very pleasant 85-year-old man with a past medical history of CAD status post stenting earlier this year to LAD, history of SVT status post ablation, hypertension, hyperlipidemia, moderate aortic stenosis, BPH, and bladder cancer in 2007 who presented to the hospital on 02/16/21 with a chief complaint of generalized weakness, loss of appetite and dehydration. Patient was seen and fully evaluated in the emergency department resulting in diagnosis of anemia, acute kidney injury, hypercalcemia, elevated troponin, weakness, and dehydration. He was admitted under our services with consultation to cardiology. Physical exam: Patient was seen and fully evaluated at the bedside this morning. He reports continued weakness but otherwise denies having any headache, lightheadedness, dizziness, chest pain, palpitations, shortness of breath, abdominal pain, nausea, vomiting, or any other complaints. He is eating breakfast and awaiting evaluation by PT/OT at this time. Morning labs reviewed. Hemoglobin stable at 9.3. Improvement of RHONDA with BUN of 32, creatinine of 1.22, and GFR of 54 this morning. Vital signs are stable. Echocardiogram completed revealing severe concentric left ventricular hypertrophy with a normal EF between 55 and 60%, moderately thickened aortic valve, mild aortic stenosis and no significant valvular abnormalities. Vital signs reviewed and stable. General: Nontoxic, no distress and appears stated age. Derm: Skin warm and dry, normal coloration for ethnicity. Head: Atraumatic, normocephalic and symmetric. Eyes: EOMs intact, no lid lag, and anicteric sclera Mouth: no lip lesions, mucus membranes moist Cardiovascular: regular rate and rhythm with normal S1S2, no murmur, positive posterior tibial pulses bilaterally, and cap refill < 2 seconds. Lungs: Respirations even, regular, and unlabored on room air. Lungs CTA bilaterally, no rhonchi, no rales, no wheezing, and no accessory muscle usage. Abdominal: soft, nontender to palpation, no guarding, no appreciable organome gretta Ext: ROM intact. No gross muscle atrophy, no edema, no contractures Neuro: Speech clear, face symmetrical and CN II-XII grossly intact with no noted focal neuro deficits Psych: Alert and oriented to person, place, time, and situation. Appropriate and pleasant affect. Assessment and Plan of Care: Generalized weakness Dehydration Acute kidney injury, improving -Admit to observation, telemetry -Patient was given IV fluids in the emergency room, repeat labs -Received IV hydration -PT/OT -Orthostatics twice a day -If no improvement with weakness and creatinine with IV fluids, we'll obtain urine lytes, renal ultrasound -Hold home lisinopril, Dyazide Elevated troponins likely type II demand ischemia from dehydration CAD with history of recent stent placement to LAD History of SVT status post ablation Moderate aortic stenosis -Echocardiogram revealing a normal EF between 55 and 60% with severe left ventricular hypertrophy. -Cardiology following, appreciate recommendations -Continue home metoprolol and diltiazem -Continue home Imdur -Continue aspirin -Plavix is not listed on patient's home medication list, but it's been less than a year since his stents were placed, I will resume Plavix here -Lipid profile unremarkable with the exception of low HDL of 31.0 Hypercalcemia, likely secondary to RHONDA Iron deficiency Anemia -SPEP/UPEP, free light chains -Iron panel revealing low iron of 31, TIBC of 263 iron percentage saturation 11.78 and transferrin of 188.0. -B12 316.0 and folate of 15.40. -Patient started on oral iron supplementation of ferrous sulfate 325 mg twice daily with meals. -Ionized calcium 5.9. We will continue to hydrate with IV fluids at 75 mL's per hour for the next 24 hours. -Continue to monitor HTN Hyperlipidemia History of bladder cancer -Home medications were reviewed and reconciled, changes noted above CODE STATUS: DO NOT RESUSCITATE/DO NOT INTUBATE DVT prophylaxis: Heparin Discussed with: Patient and RN Anticipated discharge date: Later today versus tomorrow morning, pending PT/OT recommendations. Anticipated discharge place: Home with homecare versus SNF pending PT/OT recommendations A total of 40 minutes was spent on the care of this complex patient more than 50% of the time was spent in counseling and care coordination. Objective - Vital Signs Vital signs: Vital Signs Temp 97.8 F 02/17/21 03:42 Pulse 70 02/17/21 03:42 Resp 18 02/17/21 03:42 BP 141/75 02/17/21 03:42 Pulse Ox 97 02/17/21 03:42 Intake & Output 02/16/21 02/17/21 02/17/21 18:59 06:59 18:59 Intake Total 1895 Output Total 250 Balance 1645 Weight 75.75 kg Intake: IV 1175 Lactated Ringers 1,000 ml 875 @ 125 mls/hr IV .Q8H [facility] Rx#:[id number] Magnesium Sulfate-D5w Pmx 300 1 gm In Dextrose/Water 1 100ml.bag @ 100 mls/hr IVPB Q1H [facility] Rx#: [id number] Oral 720 Output: Urine 250 Other: Voiding Method Toilet # Voids 2 - Labs CBC & Chem 7: 02/17/21 06:54 02/17/21 06:54 Labs: Abnormal Lab Results - Last 24 Hours (Table) 02/16/21 02/16/21 02/16/21 Range/Units 10:16 11:51 17:03 RBC (4.30-5.90) m/uL Hgb (13.0-17.5) gm/dL Hct (39.0-53.0) % Lymphocytes # (1.0-4.8) k/uL Sodium 136 L (137-145) mmol/L BUN 44 H (9-20) mg/dL Creatinine 1.35 H (0.66-1.25) mg/dL Glucose 134 H (74-99) mg/dL POC Glucose (mg/dL) 152 H 147 H (75-99) mg/dL Calcium 10.5 H (8.4-10.2) mg/dL Ionized Calcium Doron (4.5-5.3) mg/dL Magnesium 1.4 L (1.6-2.3) mg/dL Total Protein 5.2 L (6.3-8.2) g/dL Albumin 2.7 L (3.5-5.0) g/dL 02/16/21 02/17/21 02/17/21 Range/Units 20:18 05:52 06:54 RBC (4.30-5.90) m/uL Hgb (13.0-17.5) gm/dL Hct (39.0-53.0) % Lymphocytes # (1.0-4.8) k/uL Sodium 134 L (137-145) mmol/L BUN 32 H (9-20) mg/dL Creatinine (0.66-1.25) mg/dL Glucose 112 H (74-99) mg/dL POC Glucose (mg/dL) 162 H 118 H (75-99) mg/dL Calcium (8.4-10.2) mg/dL Ionized Calcium Doron 5.9 H (4.5-5.3) mg/dL Magnesium (1.6-2.3) mg/dL Total Protein (6.3-8.2) g/dL Albumin (3.5-5.0) g/dL 02/17/21 Range/Units 06:54 RBC 2.88 L (4.30-5.90) m/uL Hgb 9.3 L (13.0-17.5) gm/dL Hct 28.2 L (39.0-53.0) % Lymphocytes # 0.4 L (1.0-4.8) k/uL Sodium (137-145) mmol/L BUN (9-20) mg/dL Creatinine (0.66-1.25) mg/dL Glucose (74-99) mg/dL POC Glucose (mg/dL) (75-99) mg/dL Calcium (8.4-10.2) mg/dL Ionized Calcium Doron (4.5-5.3) mg/dL Magnesium (1.6-2.3) mg/dL Total Protein (6.3-8.2) g/dL Albumin (3.5-5.0) g/dL Microbiology - Last 24 Hours (Table) 02/15/21 22:00 Blood Culture - Preliminary Blood No Growth after 24 hours <Maria Luz Prather - Last Filed: 02/17/21 20:25> Subjective Ned Gregg NP rendered care for this patient independently, reviewed the findings and plan as documented in the note above. I did not physically speak with or examine the patient on this date. Objective - Vital Signs Vital signs: Vital Signs Temp 98.0 F 02/17/21 16:00 Pulse 88 02/17/21 16:00 Resp 14 02/17/21 16:00 BP 122/66 02/17/21 16:00 Pulse Ox 97 02/17/21 16:00 Intake & Output 02/17/21 02/17/21 02/18/21 06:59 18:59 06:59 Intake Total 1520 Balance 1520 Intake: Intake, IV Titration 500 Amount Lactated Ringers 1,000 ml 500 @ 125 mls/hr IV .Q8H [facility] Rx#:[id number] Oral 1020 Other: Voiding Method Toilet Toilet # Voids 2 3 - Labs CBC & Chem 7: 02/17/21 06:54 02/17/21 06:54 Labs: Abnormal Lab Results - Last 24 Hours (Table) 02/16/21 02/16/21 02/17/21 Range/Units 03:38 20:18 05:52 RBC (4.30-5.90) m/uL Hgb (13.0-17.5) gm/dL Hct (39.0-53.0) % Lymphocytes # (1.0-4.8) k/uL Sodium (137-145) mmol/L BUN (9-20) mg/dL Glucose (74-99) mg/dL POC Glucose (mg/dL) 162 H 118 H (75-99) mg/dL Ionized Calcium Doron (4.5-5.3) mg/dL Albumin (PEP) 2.75 L (3.80-4.90) g/dL Phpcu-2-Xfxmwhqtp 0.49 H (0.10-0.40) g/dL Scnrq-3-Vhtvkgjhr 1.01 H (0.60-1.00) g/dL HDL Cholesterol (40.00-60.00) mg/dL 02/17/21 02/17/21 02/17/21 Range/Units 06:54 06:54 11:35 RBC 2.88 L (4.30-5.90) m/uL Hgb 9.3 L (13.0-17.5) gm/dL Hct 28.2 L (39.0-53.0) % Lymphocytes # 0.4 L (1.0-4.8) k/uL Sodium 134 L (137-145) mmol/L BUN 32 H (9-20) mg/dL Glucose 112 H (74-99) mg/dL POC Glucose (mg/dL) 118 H (75-99) mg/dL Ionized Calcium Dor[place] 5.9 H (4.5-5.3) mg/dL Albumin (PEP) (3.80-4.90) g/dL Tgndu-1-Vigdnvymh (0.10-0.40) g/dL Vcoah-6-Mxrmtoitk (0.60-1.00) g/dL HDL Cholesterol 31.00 L (40.00-60.00) mg/dL 02/17/21 Range/Units 16:33 RBC (4.30-5.90) m/uL Hgb (13.0-17.5) gm/dL Hct (39.0-53.0) % Lymphocytes # (1.0-4.8) k/uL Sodium (137-145) mmol/L BUN (9-20) mg/dL Glucose (74-99) mg/dL POC Glucose (mg/dL) 136 H (75-99) mg/dL Ionized Calcium Doron (4.5-5.3) mg/dL Albumin (PEP) (3.80-4.90) g/dL Scrqa-3-Qytgbsitt (0.10-0.40) g/dL Ulzpx-9-Hiwonicrg (0.60-1.00) g/dL HDL Cholesterol (40.00-60.00) mg/dL Microbiology - Last 24 Hours (Table) 02/15/21 22:00 Blood Culture - Preliminary Blood No Growth after 24 hours
[2021-02-17 15:06] LABS: Albumin 2.75 g/dL (3.80-4.90); Gamma Globulin 0.77 g/dL (0.70-1.50)
[2021-02-17 16:35] LABS: Glucose,Whole Blood 136 mg/dL (75-99)
[2021-02-17] MEDS: FERROUS SULFATE 325 MG TAB PO SCH (17:00)
[2021-02-18] MEDS ORDERED: FUROSEMIDE 10 MG/ML 4 ML VIAL IV STA (01:44)
[2021-02-18] MEDS: LACTATED RINGERS 1,000 ML IV SCH (01:45)
[2021-02-18 05:20] LABS: Free Kappa Lt Chain Qnt, Urine 6.57 mg/dL (0.00-3.29); Free Lambda Lt Chain Qt, Urine 0.99 mg/dL (0.00-0.38)
[2021-02-18 05:20] LABS: Free Kappa Lt Chain Qnt, Serum 3.11 mg/dL (0.33-1.94)
[2021-02-18 06:01] LABS: Glucose,Whole Blood 115 mg/dL (75-99)
[2021-02-18] MEDS: FERROUS SULFATE 325 MG TAB PO SCH ×2 (06:40→16:43)
[2021-02-18] MEDS: HEPARIN SODIUM,PORCINE/PF 5,000 UNIT/0.5 ML SYRINGE SQ SCH ×3 (08:57→23:02)
[2021-02-18] MEDS: METOPROLOL TARTRATE 25 MG TAB PO SCH (08:57)
[2021-02-18] MEDS: ASCORBIC ACID 500 MG TAB PO SCH (08:57)
[2021-02-18] MEDS: CALCIUM CARBONATE 500 MG CHEWABLE PO SCH (08:57)
[2021-02-18] MEDS: ASPIRIN 81 MG PO SCH (08:57)
[2021-02-18] MEDS: CHOLECALCIFEROL 25 MCG (1000 IU) TABLET PO SCH (08:58)
[2021-02-18] MEDS: TAMSULOSIN 0.4 MG CAP.ER.24H PO SCH (08:58)
[2021-02-18] MEDS: ISOSORBIDE MONONITRATE ER 60 MG TAB.ER.24H PO SCH (08:58)
[2021-02-18] MEDS: DILTIAZEM CD 180 MG CAP.ER.24H PO SCH (08:58)
[2021-02-18] MEDS: NAPROXEN 250 MG TAB PO SCH (08:58)
[2021-02-18] MEDS: CLOPIDOGREL 75 MG TAB PO SCH (08:58)
--- NOTE | 2021-02-18 10:24 | P.PN ---
Subjective Progress Note Date: 02/18/21 Principal diagnosis: Dehydration The patient is an 85-year-old gentleman with coronary artery disease and aortic stenosis who was admitted to the hospital with dehydration secondary to decreased oral intake. The patient was seen this morning. He stated "I feel better". Hemodynamically he is stable as well. From the cardiac vascular standpoint of view, the patient consultation at home. Please note that the echocardiogram showed normal left ventricular systolic function with mild aortic stenosis Objective - Vital Signs Vital signs: Vital Signs Temp 97.8 F 02/18/21 04:00 Pulse 105 H 02/18/21 04:00 Resp 18 02/18/21 04:00 BP 114/70 02/18/21 04:00 Pulse Ox 93 L 02/18/21 08:21 Intake & Output 02/17/21 02/18/21 02/18/21 18:59 06:59 18:59 Intake Total 1520 118 Output Total 1350 Balance 1520 -1350 118 Weight 76.5 kg Intake: Intake, IV Titration 500 Amount Lactated Ringers 1,000 ml 500 @ 125 mls/hr IV .Q8H [facility] Rx#:[id number] Oral 1020 118 Output: Urine 1350 Straight 800 Other: Voiding Method Toilet Urinal # Voids 3 1 1 - Constitutional General appearance: Present: no acute distress - Respiratory Respiratory: bilateral: CTA - Cardiovascular Heart sounds: normal: S1, S2 - Labs CBC & Chem 7: 02/17/21 06:54 02/17/21 06:54 Labs: Abnormal Lab Results - Last 24 Hours (Table) 02/16/21 02/16/21 02/17/21 Range/Units 03:38 18:11 06:54 POC Glucose (mg/dL) (75-99) mg/dL Albumin (PEP) 2.75 L (3.80-4.90) g/dL Lmnls-4-Jbnighzro 0.49 H (0.10-0.40) g/dL Zsott-9-Ajiarzywo 1.01 H (0.60-1.00) g/dL HDL Cholesterol 31.00 L (40.00-60.00) mg/dL U Free [place] Light Ch 6.57 H (0.00-3.29) mg/dL U Free Lambda Light Ch 0.99 H (0.00-0.38) mg/dL Free [place] LC, Quant 3.11 H (0.33-1.94) mg/dL Free Lambda LC, Quant 3.00 H (0.57-2.63) mg/dL 02/17/21 02/17/21 02/18/21 Range/Units 11:35 16:33 06:00 POC Glucose (mg/dL) 118 H 136 H 115 H (75-99) mg/dL Albumin (PEP) (3.80-4.90) g/dL Akcut-6-Inzyzlceu (0.10-0.40) g/dL Gsurw-3-Paipnjvmx (0.60-1.00) g/dL HDL Cholesterol (40.00-60.00) mg/dL U Free [place] Light Ch (0.00-3.29) mg/dL U Free Lambda Light Ch (0.00-0.38) mg/dL Free [place] LC, Quant (0.33-1.94) mg/dL Free Lambda LC, Quant (0.57-2.63) mg/dL Microbiology - Last 24 Hours (Table) 02/15/21 22:00 Blood Culture - Preliminary Blood No Growth after 48 hours Assessment and Plan Assessment: Assessment #1 dehydration related to decreased oral intake #2 coronary artery disease #3 aortic stenosis #4 multiple comorbid conditions Plan #1 continue the current medical regimen #2 the echo showed normal LV function #3 the patient can be discharged home
--- NOTE | 2021-02-18 11:13 | CDI ---
Documentation Clarification Form Date: 02/18/2021 10:29:44 AM From: Rosario Laurent RN CCDS Admit Date: 02/16/2021 12:34:00 AM Patient Name: Rc De Paz Visit Number: [id number] Discharge Date: ATTENTION: The Clinical Documentation Specialists (CDI) and [facility] Coding Staff appreciate your assistance in clarifying documentation. Please respond to the clarification below the line at the bottom and electronically sign. The CDI & [facility] Coding staff will review the response and follow-up if needed. Please note: Queries are made part of the Legal Health Record. If you have any questions, please contact the author of this message via ITS. Dr. Maria Luz Prather Type 2 demand ischemia is documented 02/16, H&P and 02/17, Medicine progress note. Additional clarification regarding the etiology of the Type demand ischemia is requested. Patient History/Risk Factors: 85-year-old male presents to the ED with generalized weakness for approximately two weeks. Medical History: SVT s/p ablation, CAD s/p drug eluting stents in 2020 to the LAD, HTN and Hyperlipidemia. Clinical Indicators: H&P, 02/16 Elevated troponin likely type II demand ischemia from dehydration. Troponin: 02/16 0.234; 0.249 EKG Results: 02/16 Sinus tachycardia with premature atrial complexes. Anterior Infarct, age undetermined. Abn ECG. Treatment: 02/15 0.9NS 500cc bolus x 1 02/16 02/18 LR 125cc/hr; 02/16 Magnesium Sulfate/Dextrose 1gm IVPB x 4 bags. Please clarify the etiology of the Type 2 DC, if known: [ X ] Type 2 DC due to Dehydration [ ] Type 2 DC ruled out [ ] Type 2 DC due to other (please specify ) [ ] Unable to determine [ ] Other Condition, please specify (Template Last Revised: April 2020) MTDD
[2021-02-18 11:34] LABS: Glucose,Whole Blood 125 mg/dL (75-99)
[2021-02-18 12:16] LABS: Calcium 10.4 mg/dL (8.4-10.2); Magnesium 1.5 mg/dL (1.6-2.3)
--- NOTE | 2021-02-18 15:48 | P.PN ---
<Ned Gregg - Last Filed: 02/18/21 15:36> Subjective Progress Note Date: 02/18/21 Hospital course: Patient is a very pleasant 85-year-old man with a past medical history of CAD status post stenting earlier this year to LAD, history of SVT status post ablation, hypertension, hyperlipidemia, moderate aortic stenosis, BPH, and bladder cancer in 2007 who presented to the hospital on 02/16/21 with a chief complaint of generalized weakness, loss of appetite and dehydration. Patient was seen and fully evaluated in the emergency department resulting in diagnosis of anemia, acute kidney injury, hypercalcemia, elevated troponin, weakness, and dehydration. He was admitted under our services with consultation to cardiology. Echocardiogram completed revealing severe concentric left ventricular hypertrophy with a normal EF between 55 and 60%, moderately thickened aortic valve, mild aortic stenosis and no significant valvular abnormalities. Physical exam: Patient was seen and fully evaluated at the bedside this morning. He reports continued weakness but otherwise denies having any headache, lightheadedness, dizziness, chest pain, palpitations, shortness of breath, abdominal pain, nausea, vomiting, or any other complaints. He has been working with physical therapy, they are recommending SNF placement. Discussed with patient as well as patient's son, Salomón. Arrangements being made for SNF placement by case management at this time. Patient will be discharged once bed is available at facility and insurance authorization is completed. Morning labs reviewed magnesium 1.5, orders placed for replacement. We will continue to monitor with repeat a.m. labs. Vital signs reviewed and stable. General: Nontoxic, no distress and appears stated age. Derm: Skin warm and dry, normal coloration for ethnicity. Head: Atraumatic, normocephalic and symmetric. Eyes: EOMs intact, no lid lag, and anicteric sclera Mouth: no lip lesions, mucus membranes moist Cardiovascular: Irregularly irregular rhythm with normal S1S2, systolic murmur, positive posterior tibial pulses bilaterally, and cap refill < 2 seconds. Lungs: Respirations even, regular, and unlabored on room air. Lungs CTA bilaterally, no rhonchi, no rales, no wheezing, and no accessory muscle usage. Abdominal: soft, nontender to palpation, no guarding, no appreciable organomegaly Ext: ROM intact. No gross muscle atrophy, no edema, no contractures Neuro: Speech clear, face symmetrical and CN II-XII grossly intact with no noted focal neuro deficits Psych: Alert and oriented to person, place, time, and situation. Appropriate and pleasant affect. Assessment and Plan of Care: Generalized weakness Dehydration Acute kidney injury, resolved after IV fluid hydration -Received IV hydration -PT/OT -Orthostatics twice a day -If no improvement with weakness and creatinine with IV fluids, we'll obtain urine lytes, renal ultrasound -Hold home lisinopril, Dyazide -Plan for discharge to SNF Elevated troponins likely type II demand ischemia from dehydration CAD with history of recent stent placement to LAD History of SVT status post ablation Moderate aortic stenosis -Echocardiogram revealing a normal EF between 55 and 60% with severe left ventricular hypertrophy. -Cardiology following, appreciate recommendations -Continue home metoprolol and diltiazem -Continue home Imdur -Continue aspirin -Plavix is not listed on patient's home medication list, but it's been less than a year since his stents were placed, I will resume Plavix here -Lipid profile unremarkable with the exception of low HDL of 31.0 Hypercalcemia, likely secondary to RHONDA Iron deficiency Anemia -Iron panel revealing low iron of 31, TIBC of 263 iron percentage saturation 11.78 and transferrin of 188.0. -B12 316.0 and folate of 15.40. -Patient started on oral iron supplementation of ferrous sulfate 325 mg twice daily with meals. -Ionized calcium 5.9. We will continue to hydrate with IV fluids at 75 mL's per hour for the next 24 hours. -Continue to monitor HTN Hyperlipidemia History of bladder cancer -Home medications were reviewed and reconciled, changes noted above CODE STATUS: DO NOT RESUSCITATE/DO NOT INTUBATE DVT prophylaxis: Heparin Discussed with: Patient, patient's son and RN Anticipated discharge date: Likely tomorrow. Anticipated discharge place: Patient to be discharged to SNF, awaiting acceptance to facilities/insurance authorization for [facility] A total of 40 minutes was spent on the care of this complex patient more than 50% of the time was spent in counseling and care coordination. Objective - Vital Signs Vital signs: Vital Signs Temp 98.1 F 02/18/21 08:00 Pulse 112 H 02/18/21 08:00 Resp 17 02/18/21 08:00 BP 119/62 02/18/21 08:00 Pulse Ox 93 L 12/28/21 08:21 Intake & Output 02/17/21 02/18/21 02/18/21 18:59 06:59 18:59 Intake Total 1520 118 Output Total 1350 Balance 1520 -1350 118 Weight 76.5 kg Intake: Intake, IV Titration 500 Amount Lactated Ringers 1,000 ml 500 @ 125 mls/hr IV .Q8H [facility] Rx#:[id number] Oral 1020 118 Output: Urine 1350 Straight 800 Other: Voiding Method Toilet Urinal Urinal # Voids 3 1 1 - Labs CBC & Chem 7: 02/17/21 06:54 02/18/21 11:07 Labs: Abnormal Lab Results - Last 24 Hours (Table) 02/16/21 02/16/21 02/17/21 Range/Units 03:38 18:11 06:54 POC Glucose (mg/dL) (75-99) mg/dL Albumin (PEP) 2.75 L (3.80-4.90) g/dL Ltumf-0-Tiypxragk 0.49 H (0.10-0.40) g/dL Ziytg-7-Lltgavaep 1.01 H (0.60-1.00) g/dL HDL Cholesterol 31.00 L (40.00-60.00) mg/dL U Free [place] Ch 6.57 H (0.00-3.29) mg/dL U Free Lambda Light Ch 0.99 H (0.00-0.38) mg/dL Free [place] LC, Quant 3.11 H (0.33-1.94) mg/dL Free Lambda LC, Quant 3.00 H (0.57-2.63) mg/dL 02/17/21 02/17/21 02/18/21 Range/Units 11:35 16:33 06:00 POC Glucose (mg/dL) 118 H 136 H 115 H (75-99) mg/dL Albumin (PEP) (3.80-4.90) g/dL Fexgw-9-Leauovmtt (0.10-0.40) g/dL Jmrlm-2-Ndcxngzhg (0.60-1.00) g/dL HDL Cholesterol (40.00-60.00) mg/dL U Free [place] Ch (0.00-3.29) mg/dL U Free Lambda Light Ch (0.00-0.38) mg/dL Free [place] LC, Quant (0.33-1.94) mg/dL Free Lambda LC, Quant (0.57-2.63) mg/dL Microbiology - Last 24 Hours (Table) 02/15/21 22:00 Blood Culture - Preliminary Blood No Growth after 48 hours <Maria Luz Prather - Last Filed: 02/18/21 19:50> Subjective Ned Gregg NP rendered care for this patient independently, reviewed the findings and plan as documented in the note above. I did not physically speak with or examine the patient on this date. Objective - Vital Signs Vital signs: Vital Signs Temp 97.7 F 02/18/21 16:00 Pulse 89 02/18/21 16:00 Resp 17 02/18/21 16:00 BP 128/73 02/18/21 16:00 Pulse Ox 94 L 02/18/21 16:00 Intake & Output 02/18/21 02/18/21 02/19/21 06:59 18:59 06:59 Intake Total 354 Output Total 1350 Balance -1350 354 Weight 76.5 kg Intake: Oral 354 Output: Urine 1350 Straight 800 Other: Voiding Method Urinal Urinal # Voids 1 1 - Labs CBC & Chem 7: 02/17/21 06:54 02/18/21 11:07 Labs: Abnormal Lab Results - Last 24 Hours (Table) 02/16/21 02/16/21 02/18/21 Range/Units 03:38 18:11 06:00 Sodium (137-145) mmol/L BUN (9-20) mg/dL Glucose (74-99) mg/dL POC Glucose (mg/dL) 115 H (75-99) mg/dL Calcium (8.4-10.2) mg/dL Magnesium (1.6-2.3) mg/dL U Free [place] Ch 6.57 H (0.00-3.29) mg/dL U Free [place] Light Ch 0.99 H (0.00-0.38) mg/dL Free [place] LC, Quant 3.11 H (0.33-1.94) mg/dL Free Lambda LC, Quant 3.00 H (0.57-2.63) mg/dL 02/18/21 02/18/21 02/18/21 Range/Units 11:07 11:32 16:32 Sodium 135 L (137-145) mmol/L BUN 30 H (9-20) mg/dL Glucose 117 H (74-99) mg/dL POC Glucose (mg/dL) 125 H 135 H (75-99) mg/dL Calcium 10.4 H (8.4-10.2) mg/dL Magnesium 1.5 L (1.6-2.3) mg/dL U Free [place] Ch (0.00-3.29) mg/dL U Free [place]ambda Light Ch (0.00-0.38) mg/dL Free [place] LC, Quant (0.33-1.94) mg/dL Free Lambda LC, Quant (0.57-2.63) mg/dL Microbiology - Last 24 Hours (Table) 02/15/21 22:00 Blood Culture - Preliminary Blood No Growth after 48 hours
[2021-02-18 16:34] LABS: Glucose,Whole Blood 135 mg/dL (75-99)
[2021-02-18] MEDS: MAGNESIUM SULFATE-D5W PMX 1 GM in DEXTROSE/WATER 1 100ML.BAG IVPB SCH ×3 (16:43→21:21)
[2021-02-18] MEDS ORDERED: BENZONATATE 100 MG CAP PO PRN (16:56)
[2021-02-18 20:19] LABS: Glucose,Whole Blood 138 mg/dL (75-99)
--- NOTE | 2021-02-18 22:15 | CT ---
EXAMINATION TYPE: CT chest angio for PE DATE OF EXAM: 02/18/2021 COMPARISON: 04/24/2018 HISTORY: weakness CT DLP: 278.5 mGycm Automated exposure control for dose reduction was used. CONTRAST: Performed with IV Contrast, patient injected with 80 mL of Isovue 370. There are Three-D postprocessed images. There is extensive groundglass interstitial infiltrate throughout both lungs. There are small pleural effusions. Heart is slightly enlarged. There is no pericardial effusion. There is normal contrast opacification of the pulmonary arteries. There are no filling defects. There is no mediastinal adenopathy. There are bronchial lymph nodes measure less than 1 cm. Thoracic aorta is intact and there is no aneurysm or dissection. There is some coronary artery calcification. The thoracic spine is intact. There is no compression fracture. Sternum is intact. Upper abdominal so ft tissues are intact. IMPRESSION: Pulmonary interstitial edema with small pleural effusions. Mild cardiomegaly. This is probably conges tive heart failure. Abnormalities appear new compared to old exam. No evidence of pulmonary embolism.
[2021-02-19 04:19] LABS: HCT 26.9 % (39.0-53.0); MCH 32.1 pg (25.0-35.0); MCHC 33.5 g/dL (31.0-37.0); MCV 95.9 fL (80.0-100.0); Mean Platelet Volume 8.1; Platelet Count 284 k/uL (150-450); RBC 2.81 m/uL (4.30-5.90); RDW 13.9 % (11.5-15.5); WBC 6.9 k/uL (3.8-10.6)
[2021-02-19 04:42] LABS: Albumin 2.7 g/dL (3.5-5.0); Calcium 9.9 mg/dL (8.4-10.2); Magnesium 1.9 mg/dL (1.6-2.3); Potassium 3.6 mmol/L (3.5-5.1); Total Bilirubin 0.5 mg/dL (0.2-1.3); Total Protein 5.3 g/dL (6.3-8.2)
[2021-02-19] MEDS: FERROUS SULFATE 325 MG TAB PO SCH (06:10)
[2021-02-19 06:19] LABS: Glucose,Whole Blood 119 mg/dL (75-99)
[2021-02-19 08:59] VITALS: RESP 19
[2021-02-19] MEDS ORDERED: MAGNESIUM OXIDE 400 MG TAB PO SCH (09:00)
[2021-02-19] MEDS: TAMSULOSIN 0.4 MG CAP.ER.24H PO SCH (09:27)
[2021-02-19] MEDS: CALCIUM CARBONATE 500 MG CHEWABLE PO SCH (09:27)
[2021-02-19] MEDS: ASPIRIN 81 MG PO SCH (09:27)
[2021-02-19] MEDS: NAPROXEN 250 MG TAB PO SCH (09:27)
[2021-02-19] MEDS: CLOPIDOGREL 75 MG TAB PO SCH (09:27)
[2021-02-19] MEDS: DILTIAZEM CD 180 MG CAP.ER.24H PO SCH (09:28)
[2021-02-19] MEDS: HEPARIN SODIUM,PORCINE/PF 5,000 UNIT/0.5 ML SYRINGE SQ SCH (09:28)
[2021-02-19] MEDS: CHOLECALCIFEROL 25 MCG (1000 IU) TABLET PO SCH (09:28)
[2021-02-19] MEDS: ISOSORBIDE MONONITRATE ER 60 MG TAB.ER.24H PO SCH (09:28)
[2021-02-19] MEDS: METOPROLOL TARTRATE 25 MG TAB PO SCH (09:28)
[2021-02-19] MEDS: ASCORBIC ACID 500 MG TAB PO SCH (09:29)
--- NOTE | 2021-02-19 09:34 | P.PN ---
Subjective Progress Note Date: 02/19/21 Principal diagnosis: Dehydration The patient is an 85-year-old gentleman with coronary artery disease and aortic stenosis who was admitted to the hospital with dehydration secondary to decreased oral intake. The patient was seen this morning. He is doing better. Clinically he is asymptomatic. Hemodynamically he is stable. On examination he does have irregular rhythm concerning for A. fib. An EKG was done this morning and that showed extensive baseline artifact. I am going to repeat the EKG to assess if the patient is in A. fib or in sinus rhythm. Otherwise he can be discharged from the cardiovascular standpoint overview. Objective - Vital Signs Vital signs: Vital Signs Temp 97.5 F L 02/19/21 08:00 Pulse 103 H 02/19/21 08:00 Resp 19 02/19/21 08:00 BP 131/97 02/19/21 08:00 Pulse Ox 94 L 02/19/21 08:00 Intake & Output 02/18/21 02/19/21 02/19/21 18:59 06:59 18:59 Intake Total 354 180 Balance 354 180 Intake: Oral 354 180 Other: Voiding Method Urinal Toilet Urinal # Voids 1 1 - Constitutional General appearance: Present: no acute distress - Respiratory Respiratory: bilateral: CTA - Cardiovascular Rhythm: irregularly irregular Heart sounds: normal: S1, S2 Abnormal Heart Sounds: Present: systolic murmur - Labs CBC & Chem 7: 02/19/21 04:03 02/19/21 04:03 Labs: Abnormal Lab Results - Last 24 Hours (Table) 02/18/21 02/18/21 02/18/21 Range/Units 11:07 11:32 16:32 RBC (4.30-5.90) m/uL Hgb (13.0-17.5) gm/dL Hct (39.0-53.0) % Sodium 135 L (137-145) mmol/L BUN 30 H (9-20) mg/dL Glucose 117 H (74-99) mg/dL POC Glucose (mg/dL) 125 H 135 H (75-99) mg/dL Calcium 10.4 H (8.4-10.2) mg/dL Magnesium 1.5 L (1.6-2.3) mg/dL Total Protein (6.3-8.2) g/dL Albumin (3.5-5.0) g/dL 02/18/21 02/19/21 02/19/21 Range/Units 20:18 04:03 04:03 RBC 2.81 L (4.30-5.90) m/uL Hgb 9.0 L (13.0-17.5) gm/dL Hct 26.9 L (39.0-53.0) % Sodium 135 L (137-145) mmol/L BUN 30 H (9-20) mg/dL Glucose 128 H (74-99) mg/dL POC Glucose (mg/dL) 138 H (75-99) mg/dL Calcium (8.4-10.2) mg/dL Magnesium (1.6-2.3) mg/dL Total Protein 5.3 L (6.3-8.2) g/dL Albumin 2.7 L (3.5-5.0) g/dL 02/19/21 Range/Units 06:12 RBC (4.30-5.90) m/uL Hgb (13.0-17.5) gm/dL Hct (39.0-53.0) % Sodium (137-145) mmol/L BUN (9-20) mg/dL Glucose (74-99) mg/dL POC Glucose (mg/dL) 119 H (75-99) mg/dL Calcium (8.4-10.2) mg/dL Magnesium (1.6-2.3) mg/dL Total Protein (6.3-8.2) g/dL Albumin (3.5-5.0) g/dL Microbiology - Last 24 Hours (Table) 02/15/21 22:00 Blood Culture - Preliminary Blood No Growth after 72 hours Assessment and Plan Assessment: Assessment #1 dehydration related to decreased oral intake #2 coronary artery disease #3 aortic stenosis #4 multiple comorbid conditions Plan #1 continue the current medical regimen #2 the echo showed normal LV function #3 the patient can be discharged home
[2021-02-19] MEDS ORDERED: FUROSEMIDE 10 MG/ML 4 ML VIAL IV STA (11:29)
[2021-02-19 11:50] LABS: Glucose,Whole Blood 115 mg/dL (75-99)
[2021-02-19 11:55] VITALS: BP 127/66; PULSE 83; TEMP 97.9
--- NOTE | 2021-02-19 14:06 | P.DS ---
<Ned Gregg - Last Filed: 02/19/21 14:10> Providers Expected date of discharge: 02/19/21 Hospital Course: Discharge Diagnosis: Generalized weakness Dehydration Acute kidney injury, resolved after IV fluid hydration Elevated troponins likely type II demand ischemia from dehydration CAD with history of recent stent placement to LAD Chronic Diastolic Heart Disease History of SVT status post ablation Moderate aortic stenosis Hypercalcemia, likely secondary to RHONDA Iron deficiency Anemia HTN Hyperlipidemia History of bladder cancer Hospital Course: Patient is a very pleasant 85-year-old man with a past medical history of CAD status post stenting earlier this year to LAD, history of SVT status post ablation, chronic diastolic congestive heart disease, hypertension, hyperlipidemia, moderate aortic stenosis, BPH, and bladder cancer in 2007 who presented to the hospital on 02/16/21 with a chief complaint of generalized weakness, loss of appetite and dehydration x 2 weeks after receiving Covid vaccination. Patient was seen and fully evaluated in the emergency department resulting in diagnosis of anemia with a Hgb of 10.2, acute kidney injury with a BUN of 51, Cr 1.55, and GFR of 41, hypercalcemia with ionized calcium of 11.3, elevated troponins of 0.034, 0.246, and 0.249, hypomagnesemia with magnesium of 1.5, weakness, and dehydration. He was admitted under our services with consu ltation to cardiology. Echocardiogram completed revealing severe concentric left ventricular hypertrophy with a normal EF between 55 and 60%, moderately thickened aortic valve, mild aortic stenosis and no significant valvular abnormalities. Dehydration, hypercalcemia and acute kidney injury were treated with IV fluids and temporarily holding diuretics. Magnesium was replaced. Patient remained on telemetry monitoring throughout hospitalization. 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 On 02/18/21 patient reported cough and was found to be slightly tachycardic he underwent a CTA which was negative for PE and revealed some fluid overload consistent with CHF. Patient given a one-time dose of Lasix 40 mg IVP and to resume home diuretics. Weakness has significantly improved and patient has been ambulating in room with walker. Cardiology recommending patient follow up outpatient in office and to continue daily cardiac medication regimen. Patient was evaluated by PT/OT recommends recommending rehabilitation upon discharge for continued PT/OT. Patient is medically stable at this time. Patient to resume daily Plavix and was started on ferrous sulfate and magnesium supplements. Patient to continue Dyazide, Vasotec, aspirin, Cardizem, metoprolol, and isosorbide mononitrate. Patient is medically stable for discharge at this time and to follow up with PCP in 2-3 days and cardiology in 2 weeks.. Pt to have repeat BMP and magnesium in 3 days to follow-up on renal function and lytes. Physical exam: Patient was seen and fully evaluated at the bedside this morning. Pt was ambulating in room with walker. He denied having any headache, lightheadedness, dizziness, chest pain, palpitations, shortness of breath, abdominal pain, nausea, vomiting, or any other complaints. patient has been accepted to [facility] for continued PT/OT. Patient stable for discharge to rehab at this time. Vital signs reviewed and stable. General: Nontoxic, no distress and appears stated age. Derm: Skin warm and dry, normal coloration for ethnicity. Head: Atraumatic, normocephalic and symmetric. Eyes: EOMs intact, no lid lag, and anicteric sclera Mouth: no lip lesions, mucus membranes moist Cardiovascular: Irregularly irregular rhythm with normal S1S2, systolic murmur, positive posterior tibial pulses bilaterally, and cap refill < 2 seconds. Lungs: Respirations even, regular, and unlabored on room air. Lungs CTA bilaterally, no rhonchi, no rales, no wheezing, and no accessory muscle usage. Abdominal: soft, nontender to palpation, no guarding, no appreciable organomegaly Ext: ROM intact. No gross muscle atrophy, no edema, no contractures Neuro: Speech clear, face symmetrical and CN II-XII grossly intact with no noted focal neuro deficits Psych: Alert and oriented to person, place, time, and situation. Appropriate and pleasant affect. A total of 45 minutes of time were spent preparing this complex discharge summary. Patient Condition at Discharge: Fair Plan - Discharge Summary Discharge Rx Participant: Yes New Discharge Prescriptions: New Clopidogrel [Plavix] 75 mg PO DAILY 30 Days #30 tab Pantoprazole [Protonix] 40 mg PO DAILY 30 Days #30 tab Ferrous Sulfate [Iron (65 MG Elemental)] 325 mg PO BID-W/MEALS 30 Days #60 tab Magnesium Oxide [Mag-Ox] 400 mg PO DAILY 30 Days #30 tab Continue Triamterene-Hctz 37.5-25Mg [Dyazide 37.5-25 Capsule] 1 cap PO DAILY Enalapril [Vasotec] 5 mg PO DAILY Aspirin 81 mg PO DAILY #30 chew Tamsulosin [Flomax] 0.4 mg PO DAILY Calcium Carbonate [Calcium] 600 mg PO DAILY Diltiazem HCl [Diltiazem HCl 24Hr ER] 180 mg PO DAILY Cholecalciferol [Vitamin D3 (25 Mcg = 1000 Iu)] 25 mcg PO DAILY Ascorbic Acid [Vitamin C] 1,000 mg PO DAILY Metoprolol Tartrate [Lopressor] 25 mg PO DAILY Isosorbide Mononitrate ER [Imdur] 60 mg PO DAILY Discontinued Naproxen Sodium [Aleve] 220 mg PO DAILY Discharge Medication List Enalapril [Vasotec] 5 mg PO DAILY 04/24/18 [History] Triamterene-Hctz 37.5-25Mg [Dyazide 37.5-25 Capsule] 1 cap PO DAILY 04/24/18 [History] Aspirin 81 mg PO DAILY #30 chew 04/27/18 [Rx] Tamsulosin [Flomax] 0.4 mg PO DAILY 03/04/20 [History] Ascorbic Acid [Vitamin C] 1,000 mg PO DAILY 02/15/21 [History] Calcium Carbonate [Calcium] 600 mg PO DAILY 02/15/21 [History] Cholecalciferol [Vitamin D3 (25 Mcg = 1000 Iu)] 25 mcg PO DAILY 02/15/21 [History] Diltiazem HCl [Diltiazem HCl 24Hr ER] 180 mg PO DAILY 02/15/21 [History] Isosorbide Mononitrate ER [Imdur] 60 mg PO DAILY 02/15/21 [History] Metoprolol Tartrate [Lopressor] 25 mg PO DAILY 02/15/21 [History] Clopidogrel [Plavix] 75 mg PO DAILY 30 Days #30 tab 02/19/21 [Rx] Ferrous Sulfate [Iron (65 MG Elemental)] 325 mg PO BID-W/MEALS 30 Days #60 tab 02/19/21 [Rx] Magnesium Oxide [Mag-Ox] 400 mg PO DAILY 30 Days #30 tab 02/19/21 [Rx] Pantoprazole [Protonix] 40 mg PO DAILY 30 Days #30 tab 02/19/21 [Rx] Follow up Appointment(s)/Referral(s): James Vicente MD [STAFF PHYSICIAN] - 2 Weeks Jose Thompson MD [Primary Care Provider] - 1-2 days Ambulatory/Diagnostic Orders: Basic Metabolic Panel [LAB.AMB] Time Frame: 3 Days, Location: None Selected Magnesium [LAB.AMB] Location: None Selected Activity/Diet/Wound Care/Special Instructions: Activity: As tolerated. Take breaks as needed. Diet: Heart healthy and carb consistent diet. Avoid salts, or foods with hidden salts such as canned or boxed foods and frozen dinners. Extra salt makes your heart work harder and traps the fluid in your body for longer. Special Instructions: Take all of your medications as directed and remember to keep all of your doctor's appointments and follow-up as needed. Wishing you a very happy and healthy New Year!!! Thank you for allowing us to participate in your care, it was truly a pleasure having you for our patient!!! Discharge Disposition: TRANSFER TO SNF/ECF <Maria Luz Prather - Last Filed: 02/19/21 18:31> Providers Date of admission: 02/16/21 00:34 Attending physician: Sherine Devries MD Consults: 02/16/21 00:34 Consult Physician Routine Consulting Provider: James Vicente Consult Reason/Comments: Elevated troponin. Possible myocarditis. Do you want consulting provider notified?: Yes 02/16/21 00:35 Consult Physician Routine Consulting Provider: Марина Fontanez Consult Reason/Comments: elevated troponin, with multi-vessel cad Do you want consulting provider notified?: Yes Primary care physician: Jose Thompson [facility] Course: Ned Gregg NP rendered care for this patient independently, reviewed the findings and plan as documented in the note above. I did not physically speak with or examine the patient on this date.
== END 2021-02-19 14:24 | DRG 682 ==
LOC: EC 20:42 → 3SCARD 02-16 00:33 → OBSVTOIN 02-16 00:34 → 3SCARD 02-16 02:27
PROVIDERS: ADMIT Internal Medicine; ATTEND Internal Medicine
DX: N17.9 Acute kidney failure, unspecified (principal); I21.A1 Myocardial infarction type 2; E86.0 Dehydration; D50.9 Iron deficiency anemia, unspecified; E78.5 Hyperlipidemia, unspecified; E83.42 Hypomagnesemia; E83.52 Hypercalcemia; F32.A Depression, unspecified; H91.90 Unspecified hearing loss, unspecified ear; I25.10 Atherosclerotic heart disease of native coronary artery without angina pectoris; I35.0 Nonrheumatic aortic (valve) stenosis; I50.9 Heart failure, unspecified; I11.0 Hypertensive heart disease with heart failure; N40.0 Benign prostatic hyperplasia without lower urinary tract symptoms; Z20.822 Contact with and (suspected) exposure to COVID-19; Z66 Do not resuscitate; Z79.02 Long term (current) use of antithrombotics/antiplatelets; Z79.82 Long term (current) use of aspirin; Z79.899 Other long term (current) drug therapy; Z82.49 Family history of ischemic heart disease and other diseases of the circulatory system; Z85.51 Personal history of malignant neoplasm of bladder; Z85.828 Personal history of other malignant neoplasm of skin; Z95.5 Presence of coronary angioplasty implant and graft
CPT/HCPCS: 36415; 51798; 71046; 71275; 80048; 80053; 80061; 80076; 81001; 82330; 82607; 82746; 83540; 83550; 83605; 83735; 83880; 83883; 84165; 84484; 85025; 85027; 85610; 85730; 87040; 87635; 93005; 93306; 94760; 99285